=== PATIENT | female | born 1995 | race Caucasian/White ===

== ENCOUNTER 2017-03-08 19:07 | Emergency (ER) | payer MEDICAID ==
[~2017-03-08] VITALS: Ht 165.1 cm; Wt 46.7 kg
[~2017-03-08 19:07] MED LIST: AMOXICILLIN 50500 MG PO; AMOXIL500 M1 PO; AZITHROMYCIN250 MG PO; IBU-6600 MG PO; LEADER LORATADI10 MG PO; MEDROL 4MG. DOSE4 MG PO; MOTRIN400 MG PO; MOTRIN600 MG PO; MULTI VITAMINS1 TA1 PO; NEOSPORIN OPTH.4 GM OP; ORTHO-CYCLEN 351 TA1 PO; PREDNISONE 10MG10 MG PO; PROAIR HFA0.09 MG/AC IH; ULTRACET 325 MG1 TAB PO; ZITHROMAX Z PA250 MG PO; ZITHROMAX Z-PA250 M1 PO
[2017-03-08] MEDS ORDERED: NUVARING1 ICR VG (19:23)
[2017-03-08 19:30] LABS: URINE BILIRUBIN - DIPSTICK NEGATIVE (NEG); URINE BLOOD NEGATIVE (NEG)
[2017-03-08] MEDS ORDERED: PYRIDIUM200 M2 PO (19:44)
[2017-03-08] MEDS ORDERED: MACROBID100 M3 PO (19:44)
--- NOTE | 2017-03-08 19:46 | [facility]gent Treatment Center Report ---
History of Present Issue Date/Time Seen by Provider 03/08/171934 Visit Reason Pt arrived:Walked Presenting Problem:PT STATES EREN KIDNEY PAIN FOR PAST WEEK AND A HALF THAT HAS GOTTEN WORSE FOR THE PAST THREE DAYS Location if Accident: Onset of symptoms date/time:/ or onset unknown for:MEDICAL HX UNKNOWN Have you (or family members/close friends) recently traveled outside the [place]? N If Yes, where/when: Have you had exposure to infectious disease within the past month? TB? Other? Specify: here w/ mom c/o pain across low back x 3 days w/ dysuria and abnormal foul smelling urine x 5 days. Noticed blood in urine today. Nausea last 2-3 days. No vomiting, abdominal pain, fever, chills, vaginal discharge, change in urine color. hasn't taken or tried anything for symptoms. Source patient Exam Limitations no limitations ALLERGIES Coded Allergies: erythromycin base (03/08/17) sulfisoxazole (03/08/17) Home Medications Reported Medications Albuterol Sulfate (Proair Hfa) 2 PUFFS IH PRN MULTIVITAMIN (One Daily Multivitamin) 1 TAB PO DAILY ETONOGESTREL/ETHINYL ESTRADIOL (Nuvaring Vaginal Ring) 1 VG . History Medical History General CAD? No Angina: No DE: No Hypertension? Yes Hyperlipidemia? No CHF? No DVT? No PE? No COPD? No Asthma? Yes Anemia? No GERD? No Gastric ulcers? No GI Bleed? No Hernia? No Thyroid Problems? No Hypothyroidism? No CVA? No Seizures? No Diabetes? No Renal Insuffiency? No UTI? No Stones? No BPH? No GB Disease: No Nephritic Syndrome? No Asplenia? No Hepatitis? No Sickle Cell Disease? No Arthritis? No Migraines? No Cataracts? No Glaucoma? No MRSA? No HIV? No TB? No Anxiety? Yes Depression? No Cancer? No Immunization HX DT/Tetanus 1-4 YRS Surgical Hx Previous Surgery?N B[employer]ING [employer]ACH[employer] HORIZONTAL Hx LMP 3 Weeks Ago Social History Smoking Hx Smoker: Current Every Day Smoker Tobacco: Yes Type Cigarettes Alcohol Alcohol: Yes Review of Systems All Other Systems Reviewed and Negative Constitutional see HPI Gastrointestinal see HPI Genitourinary see HPI, frequency, hesitancy. Musculoskeletal denies other (aches) Psychiatric/Neurological denies headache Physical Exam Vital Signs Vital Signs Date Time Temp Pulse Resp B/P Pulse O2 O2 Flow FiO2 Ox Delivery Rate 03/08 1920 99.4 91 20 116/79 103 General Appearance no apparent distress Respiratory Status No: respiratory distress. Cardiovascular no peripheral edema Gastrointestinal normal bowel sounds, soft, no organomegaly, no guarding, no rebound, generalized mild abdominal and suprapubic tenderness without bladder distention Back no vertebral tenderness, gait normal, CVA tenderness (R) (mild), CVA tenderness (L) (mild) Neurologic alert Skin normal color, warm/dry Lymphatic no adenopathy Medical Decision Making LABS/Meds/Orders Pt receiving controlled substance in ED? No Results/Orders Laboratory Tests 03/08/171918: Urine Color DARK YELLOW, Urine Appearance Clear, Urine pH 6.0, Ur Specific Bowlus 1.030, Urine Protein .0, Urine Ketones NEGATIVE, Urine Blood NEGATIVE, Urine Nitrate POSITIVE H, Urine Bilirubin NEGATIVE, Urine Urobilinogen 1.0, Ur Leukocyte Esterase NEGATIVE, Urine Glucose NEGATIVE Orders Procedure Date/time Status CULTURE, URINE 03/08 1936 Active [facility] URINE DIPSTICK 03/08 1919 Complete Departure Departure Time of Disposition 1940 Disposition DC Home or Self Care(routine) Clinical Impression Primary Impression: UTI (urinary tract infection) Qualifiers: Urinary tract infection type: site unspecified Hematuria presence: with hematuria Qualified Code: N39.0 - Urinary tract infection, site not specified Condition STABLE Referrals NO REFERRAL Primary care is in [place]: * Be SURE to follow up anytime for new or worsening symptoms, if no improvement in 48 hours AND in 10-14 days to repeat UA and ensure infection resolved and blood no longer present. Patient Instructions DI for Urinary Tract Infection (UTI) Additional Instructions * increase fluids, Water and NOT soda or tea * Start antibiotic immediately and be sure to take as ordered for the FULL length of time although you should start to see improvement over the next 48 hours. * pyridium as needed. Remember this will turn your urine ORANGE, this is normal but will stain whatever it gets on * You should not need the pyridium longer than 48 hours. If so, follow up with primary care to review urine culture and ensure antibiotic is adequate * Be SURE to follow up anytime for new or worsening symptoms, if no improvement in 48 hours AND in 10-14 days to repeat UA and ensure infection resolved and blood no longer present. * Be sure to let your PCP (or whoever you follow up with) know we sent urine culture so they can request records and ensure you are on the appropriate antibiotic if you are not getting better or getting worse!!! Discharge Counseling Counseled pt/family regarding diagnosis, test results, medications/RX, home care, follow up needs Prescriptions Current Visit Scripts NITROFURANTOIN MONOHYD/M-CRYST (Macrobid 100 MG Capsule) 100 MG PO BID #14 CAP Phenazopyridine HCl (Pyridium) 200 MG PO TIDP PRN pain w/ urination #6 TAB at 1950
[2017-03-08 19:48] VITALS: BP 116/79
--- OUTSIDE RECORDS SUMMARY | 2017-03-14 08:26 | External Medical Summary Rpt ---
Author Author , Organization [employer] Address Unknown Phone Unavailable Care Team Providers Care Survey Research [facility] Director Name Role Phone GAYATHRI COWAN Unavailable Unavailable MARSHALL GAYATHRI OLIVARES, ARNOLD Unavailable Unavailable MARSHALL SUNDEEP TRINH W, Unavailable Unavailable SUNDEEP TRINH W AWOSIKA ABEL, AWOSIKA Unavailable Unavailable ABEL AWOSIKA ABEL, AWOSIKA Unavailable Unavailable ABEL [facility] Unavailable Unavailable [facility] SHAHAB DOMINGUEZ, Unavailable Unavailable SHAHAB DOMINGUEZ [facility] Un[facility]available [facility], Unavailable Unavailable [facility] Unavailable [facility], [facility] [place] [facility] [facility] [facility] [place] [facility] Unavailable [facility]available [facility], Un[facility] Unavailable Unavailable DEPT., [facility]. [facility] Unavailable Unavailable DEPT., [facility] DE[facility]. NITIN LEDBETTER, Unavailable Unavailable NITIN LEDBETTER GRAY ROB Unavailable Unavailable [facility] Un[facility], [facility] KEVIN BURGESS HARVEY, Unavailable Unavailable KEVIN [facility], Unavailable Unavailable [facility] Un[facility] Unavailable [facility], [facility] KROEWN MILNER Unavailable Unavailable ALHAJI EWING, Unavailable Unavailable ALHAJI EWING [facility] Unavailable Unavailable SERVICES, [facility] Unavailable Unavailable DEPARTMENT, [facility] JASMIN SANON, Unavailable Unavailable JASMIN SANON JOE A, Unavailable Unavailable NAIMA DAVIS PETREYES Unavailable Unavailable JAM RADHA JEA, RADHA Unavailable Unavailable JEA [id number], Unavailable Unavailable [id number] Unavailable Unavailable DEPARTME, [facility] Unavailable Unavailable DE[facility]ME, [facility] Unavailable Unavailable DEPARTMENT, [facility] MAY SAEED Unavailable Unavailable SAULO KHAN, Unavailable Unavailable SAULO OLVERA SOKAN BAB, SOKAN BAB Unavailable Unavailable SOKAN, CHEKO O, Unavailable Unavailable SOKAN, CHEKO O [facility] Unavailable Unavailable [facility]Y [facility], [facility] SHANELLE RENTERIA III, Unavailable Unavailable SHANELLE RENTERIA III Purpose Continuity of Care Document - 10-31-2007 through 2016 Problems Code Diagnosis DOS Provider Status [id number] ENCOUNTER 08-17-2016 [employer] ENGINEER EXAM [facility] GENERAL RTN HEALTH W/O DEPT. ABNORMAL FIND [id number] ENCOUNTR 08-17-2016 [facility] SURVEILLANC [facility] DEPT. 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 AWOSIKA ABEL NERVE FIBER BUNDLE DEFECTS 3671 MYOPIA 11-02-2011 AWOSIKA ABEL 55330 OTHER 11-02-2011 AWOSIKA ABEL CHRONIC ALLERGIC CONJUNCTIVI TIS 6264 IRREGULAR 08-04-2011 [facility] MENSTRUAL [facility]ALTH CYCLE DEPARTME 77237 HORDEOLUM 06-29-2011 [facility] 39210 PAINFUL 06-29-2011 [facility] 39048 OTHER CHEST 06-29-2011 [facility] V7231 ROUTINE 06-27-2011 [facility] AL DEPARTME EXAMINATION 4619 ACUTE 04-11-2011 ARNOLD MARSHALL SINUSITIS, UNSPECIFIED 8470 NECK SPRAIN 04-02-2011 [facility] 86307 CONTUSION 12-10-2010 [facility] 23696 PAIN IN 12-09-2010 GAYATHRI MARSHALL JOINT, LOWER LEG 8449 SPRAIN&STRA 12-02-2010 [facility] IN OF [facility] UNSPECIFIED INC SITE OF KNEE&LEG 82906 REGULAR 08-20-2010 [facility] 17315 ABDOMINAL 05-12-2010 [place] [facility], MEDICAL UNSPECIFIED IMAGING ASS SITE 02174 ABDOMINAL 05-12-2010 ARIN PAIN, EMERGENCY GENERALIZED SERVICES ASSOC[facility]ATES 51230 UNSPECIFIED 04-27-2010 ARNOLD, INFECTIVE SUNDEEP W OTITIS EXTERNA 4660 ACUTE 02-20-2010 ARNOLD, BRONCHITIS SUNDEEP W 66216 ASTHMA 10-25-2009 [facility] UNSPECIFIED [facility]ERGENCY WITH SERVICES EXACERBATIO ASSOCIATES N 99340 ASTHMA, 09-17-2009 [facility] UNSPECIFIED [facility]ERGENCY , SERVICES UNSPECIFIED ASSOCIATES STATUS 7862 COUGH 09-17-2009 [facility] 5110 PLEURISY 07-10-2009 [facility] WITHOUT EMERGENCY MENTION SERVICES EFFUS/CURRE ASSOCIATES NT TB 514 PULMONARY 07-10-2009 [facility] HYPOSTASIS [facility]ATES V720 EXAMINATION 06-04-2009 MARQUIS Valdez OF EYES RUFINA OD AND VISION V2503 ENCOUNTER 05-22-2009 [facility] EMERGENCY HEALTH CONTRACEPT CENTRAL CNSL&PRESCR BANK ACCT IPTION 9595 INJURY 05-01-2009 RYAN, OTHER AND NAIMA Alves UNSPECIFIED FINGER 52232 PAIN IN 04-29-2009 [facility] JOINT, EMERGENCY FOREARM SERVICES ASSOCIATES 28345 OTHER HAND 04-29-2009 [place] SPRAIN AND [facility] STR[facility] E8498 OTHER 04-29-[address] [place] [address] OF IMAGING OCCURRENCE ASSOCIATES E9170 STRIKE 04-29-2009 [place] AGNST/STRUC MEDICAL K ACC IMAGING SPORTS W/O ASSOCIATES SUBSQT FALL 84718 LUMP OR 01-13-2009 [place] M[place] IN MEDICAL BREAST [facility] 4779 ALLERGIC 12-27-2008 RYAN RHINITIS NAIMA A CAUSE UNSPECIFIED 4640 ACUTE 12-10-2008 RYAN LARYNGITIS NAIMA A 47634 COUGH 07-16-2008 [facility] ASTHMA INTERNAL MED 60517 OTHER 07-07-2008 [facility] DYSPNEA AND [facility] [place] [address] UNSPECIFIED 07-02-2008 [facility] INTERNAL MED ABNORMALITY 17356 ABDOMINAL 06-19-2008 [place] [facility], MEDICAL EPIGASTRIC IMAGING ASSOC[facility]ATES 08058 CHEST PAIN 06-14-2008 [facility] UNSPECIFIED [facility] PROF SERV 5118 PLEURISY 10-31-2007 [facility] W/OTH SPEC [facility] FORMS EFFUS INC NO TUBERCULOUS 7931 NONSPEC 10-31-2007 [place] FIND RAD MEDICAL OTH EXAM [facility] B[facility] STRUCT [facility] LUNG FIELD Allergies, Adverse Reactions, Alerts Clinical Alert Notifications Alert Asthma: absence of controller with h/o SA beta agonist Asthma: no influenza vaccine in the last 365 days Medications Na ND Rx Da Fi Fi Am Da Di Ph RX Ph St me C No te ll ll ou ys ag ar # ys at rm s nt no ma ic us Or Da si cy ia de te s n re d FL 65 04 05 30 30 00 KR Ac UO 86 -3 -1 .0 00 OG ti XE 20 0- 9- 00 06 ER ve TI 19 20 20 52 NE 29 17 17 50 PH 9 06 AR HC M L L- 10 76 7 MG CA PS UL E VE 00 04 05 18 30 00 KR Ac NT 17 -3 -1 .0 00 OG ti OL 30 0- 9- 00 06 ER ve IN 68 20 20 52 22 17 17 50 PH HF 0 05 AR A M 90 L- 76 MC 7 G IN MILLER LE R NU 00 04 05 1. 28 00 KR Ac VA 05 -2 -1 00 00 OG ti RI 20 0- 2- 0 06 ER ve NG 27 20 20 51 30 17 17 96 PH VA 3 84 AR GI M NA L- L 76 RI 7 NG VE 00 03 04 18 30 00 KR Ac NT 17 -3 -2 .0 00 OG ti OL 30 1- 1- 00 06 ER ve IN 68 20 20 52 22 17 17 50 PH HF 0 05 AR A M 90 L- 76 MC 7 G IN [facility] 65 03 04 30 30 00 KR Ac UO 86 -3 -2 .0 00 OG ti XE 20 1- 1- 00 06 ER ve TI 19 20 20 52 NE 29 17 17 50 PH 9 06 AR HC M L L- 10 76 7 MG CA PS UL E NU 00 03 04 1. 28 00 KR Ac VA 05 -2 -1 00 00 OG ti RI 20 2- 4- 0 06 ER ve NG 27 20 20 51 30 17 17 96 PH VA 3 84 AR GI M NA L- L 76 RI 7 NG VE 00 03 03 18 30 00 KR Ac NT 17 -0 -2 .0 00 OG ti OL 30 2- 4- 00 06 ER ve IN 68 20 20 52 22 17 17 50 PH HF 0 05 AR A M 90 L- 76 MC 7 G IN [facility] 65 03 03 30 30 00 KR Ac UO 86 -0 -2 .0 00 OG ti XE 20 1- 4- 00 06 ER ve TI 19 20 20 52 NE 29 17 17 50 PH 9 06 AR HC M L L- 10 76 7 MG CA PS UL E NU 00 02 03 1. 28 00 KR Ac VA 05 -2 -1 00 00 OG ti RI 20 4- 7- 0 06 ER ve NG 27 20 20 51 30 17 17 96 PH VA 3 84 AR GI M NA L- L 76 RI 7 NG FL 65 02 02 30 30 00 KR Ac UO 86 -0 -2 .0 00 OG ti XE 20 3- 4- 00 06 ER ve TI 19 20 20 52 NE 29 17 17 50 PH 9 06 AR HC M L L- 10 76 7 MG CA PS UL E VE 00 02 02 18 30 00 KR Ac NT 17 -0 -2 .0 00 OG ti OL 30 3- 4- 00 06 ER ve IN 68 20 20 52 22 17 17 50 PH HF 0 05 AR A M 90 L- 76 MC 7 G IN MILLER LE R NU 00 01 02 1. 28 00 KR Ac VA 05 -2 -1 00 00 OG ti RI 20 9- 7- 0 06 ER ve NG 27 20 20 51 30 17 17 96 PH VA 3 84 AR GI M NA L- L 76 RI 7 NG NU 00 01 02 1. 28 00 WA Ac VA 05 -0 -0 00 00 L- ti RI 20 3- 3- 0 07 MA ve NG 27 20 20 30 RT 30 17 17 89 VA 3 98 PH GI AR NA MA L CY RI NG #2 62 8 LO 45 07 10 5 30 30 EA 23 AR Ac RA 80 -1 -[address] 29 NO ti TA 20 3- 5- 00 SI 23 LD ve DI 65 20 20 DE NE 08 11 11 RI 7 PH CH 10 AR AR MA D MG CY W TA OF BL ET CY NT HI AN A AM 00 09 09 0 21 7 EA 24 KR Ac OX 78 -1 -[address] 08 OO ti IC 12 4- 4- 00 SI 80 T ve IL 61 20 20 DE LO LI 30 11 11 UI N 5 PH S 50 AR 0 MA MG CY CA OF PS UL CY E NT HI AN A BA 24 09 09 0 3. 4 EA 24 KR Ac CI 20 -1 -[address] 08 OO ti TR 80 4- 4- 0 SI 81 T ve AC 55 20 20 DE LO IN 55 11 11 UI -P 5 PH S OL AR YM MA YX CY IN OF EY E CY OI NT NT HI AN A 59 10 09 2 8. 20 EA 19 AR Ac 31 -0 -[address] 42 NO ti 00 5- 8- 0 SI 17 LD ve 57 20 20 DE 92 10 11 RI 0 PH CH AR AR MA D CY W OF CY NT HI AN A LO 45 07 09 5 30 30 EA 23 AR Ac RA 80 -1 -[address] 29 NO ti TA 20 3- 8- 00 SI 23 LD ve DI 65 20 20 DE NE 08 11 11 RI 7 PH CH 10 AR AR MA D MG CY W TA OF BL ET CY NT HI AN A LO 45 07 08 5 30 30 EA 23 AR Ac RA 80 -1 -[address] 29 NO ti TA 20 3- 1- 00 SI 23 LD ve DI 65 20 20 DE NE 08 11 11 RI 7 PH CH 10 AR AR MA D MG CY W TA OF BL ET CY NT HI AN A LO 45 07 07 5 30 30 EA 23 AR Ac RA 80 -1 -[address] 29 NO ti TA 20 3- 3- 00 SI 23 LD ve DI 65 20 20 DE NE 08 11 11 RI 7 PH CH 10 AR AR MA D MG CY W TA OF BL ET CY NT HI AN A 00 06 06 0 20 4 EA 22 GR Ac 17 -1 -[address] 99 AY ti 26 8- 8- 00 SI 73 ve 35 20 20 DE RO 97 11 11 BE 0 PH RT AR B MA CY OF CY NT HI AN A LO 45 06 06 0 30 30 EA 22 AR Ac RA 80 -1 -[address] 96 NO ti TA 20 6- 6- 00 SI 10 LD ve DI 65 20 20 DE NE 08 11 11 RI 7 PH CH 10 AR AR MA D MG CY W TA OF BL ET CY NT HI AN A LO 45 12 05 5 30 30 EA 20 AR Ac RA 80 -2 -[address] 55 NO ti TA 20 7- 7- 00 SI 02 LD ve DI 65 20 20 DE NE 08 10 11 RI 7 PH CH 10 AR AR MA D MG CY W TA OF BL ET CY NT HI AN A LO 45 12 04 5 30 30 EA 20 AR Ac RA 80 -2 -[address] 55 NO ti TA 20 7- 9- 00 SI 02 LD ve DI 65 20 20 DE NE 08 10 11 RI 7 PH CH 10 AR AR MA D MG CY W TA OF BL ET CY NT HI AN A LO 45 12 03 5 30 30 EA 20 AR Ac RA 80 -2 -[address] 55 NO ti TA 20 7- 2- 00 SI 02 LD ve DI 65 20 20 DE NE 08 10 11 RI 7 PH CH 10 AR AR MA D MG CY W TA OF BL ET CY NT HI AN A IB 53 02 03 1 30 10 EA 21 SO Ac UP 74 -2 -[address] 40 KA ti RO 60 5- 0- 00 SI 67 N ve FE 46 20 20 DE BA N 50 11 11 BA 60 5 PH TU 0 AR ND MG MA E CY O TA BL OF ET CY NT HI AN A IB 53 02 02 1 30 10 EA 21 SO Ac UP 74 -2 -[address] 40 KA ti RO 60 5- 5- 00 SI 67 N ve FE 46 20 20 DE BA N 50 11 11 BA 60 5 PH TU 0 AR ND MG MA E CY O TA BL OF ET CY NT HI AN A 59 10 02 2 8. 25 EA 19 AR Ac 31 -0 -[address] 42 NO ti 00 5- 3- 0 SI 17 LD ve 57 20 20 DE 92 10 11 RI 0 PH CH AR AR MA D CY W OF CY NT HI AN A LO 45 12 02 5 30 30 EA 20 AR Ac RA 80 -2 -[address] 55 NO ti TA 20 7- 3- 00 SI 02 LD ve DI 65 20 20 DE NE 08 10 11 RI 7 PH CH 10 AR AR MA D MG CY W TA OF BL ET CY NT HI AN A ME 00 12 02 1 21 6 EA 20 AR Ac TH 78 -2 -[address] 55 NO ti YL 15 7- 3- 00 SI 03 LD ve VA 02 20 20 DE ED 20 10 11 RI NI 7 PH CH SO AR AR LO MA D NE CY W 4 OF MG CY DO NT SE HI PK AN A AZ 00 12 02 1 6. 5 EA 20 AR Ac IT 09 -2 -[address] 55 NO ti HR 37 7- 3- 0 SI 04 LD ve OM 14 20 20 DE YC 61 10 11 RI IN 8 PH CH AR AR 25 MA D 0 CY W MG OF TA BL CY ET NT HI AN A IB 53 02 02 0 9. 3 EA 21 SO Ac UP 74 -1 -[address] 29 KA ti RO 60 7- 7- 0 SI 78 N ve FE 46 20 20 DE BA N 50 11 11 BA 60 5 PH TU 0 AR ND MG MA E CY O TA BL OF ET CY NT HI AN A LO 45 12 01 5 30 30 EA 20 AR Ac RA 80 -2 -[address] 55 NO ti TA 20 7- 5- 00 SI 02 LD ve DI 65 20 20 DE NE 08 10 11 RI 7 PH CH 10 AR AR MA D MG CY W TA OF BL ET CY NT HI AN A LO 45 12 12 5 30 30 EA 20 AR Ac RA 80 -2 -[address] 55 NO ti TA 20 7- 7- 00 SI 02 LD ve DI 65 20 20 DE NE 08 10 10 RI 7 PH CH 10 AR AR MA D MG CY W TA OF BL ET CY NT HI AN A ME 00 12 12 1 21 6 EA 20 AR Ac TH 78 -2 -[address] 55 NO ti YL 15 7- 7- 00 SI 03 LD ve VA 02 20 20 DE ED 20 10 10 RI NI 7 PH CH SO AR AR LO MA D NE CY W 4 OF MG CY DO NT SE HI PK AN A AZ 00 12 12 1 6. 5 EA 20 AR Ac IT 09 -2 -[address] 55 NO ti HR 37 7- 7- 0 SI 04 LD ve OM 14 20 20 DE YC 61 10 10 RI IN 8 PH CH AR AR 25 MA D 0 CY W MG OF TA BL CY ET NT HI AN A LO 45 01 11 11 30 30 EA 16 AR Ac RA 80 -2 -[address] 08 NO ti TA 20 3- 0- 00 SI 20 LD ve DI 65 20 20 DE NE 08 10 10 RI 7 PH CH 10 AR AR MA D MG CY W TA OF BL ET CY NT HI AN A LO 45 01 10 11 30 30 EA 16 AR Ac RA 80 -2 -[address] 08 NO ti TA 20 3- 9- 00 SI 20 LD ve DI 65 20 20 DE NE 08 10 10 RI 7 PH CH 10 AR AR MA D MG CY W TA OF BL ET CY NT HI AN A AZ 64 01 10 1 6. 5 EA 16 AR Ac IT 67 -2 -[address] 08 NO ti HR 90 3- 5- 0 SI 18 LD ve OM 96 20 20 DE YC 10 10 10 RI IN 5 PH CH AR AR 25 MA D 0 CY W MG OF TA BL CY ET NT HI AN A ME 00 01 10 1 21 6 EA 16 AR Ac TH 78 -2 -[address] 08 NO ti YL 15 3- 5- 00 SI 19 LD ve VA 02 20 20 DE ED 20 10 10 RI NI 7 PH CH SO AR AR LO MA D NE CY W 4 OF MG CY DO NT SE HI PK AN A 59 10 10 2 8. 25 EA 19 AR Ac 31 -0 -[address] 42 NO ti 00 5- 5- 0 SI 17 LD ve 57 20 20 DE 92 10 10 RI 0 PH CH AR AR MA D CY W OF CY NT HI AN A LO 45 01 09 11 30 30 EA 16 AR Ac RA 80 -2 -[address] 08 NO ti TA 20 3- 7- 00 SI 20 LD ve DI 65 20 20 DE NE 08 10 10 RI 7 PH CH 10 AR AR MA D MG CY W TA OF BL ET CY NT HI AN A LO 45 01 08 11 30 30 EA 16 AR Ac RA 80 -2 -[address] 08 NO ti TA 20 3- 7- 00 SI 20 LD ve DI 65 20 20 DE NE 08 10 10 RI 7 PH CH 10 AR AR MA D MG CY W TA OF BL ET CY NT HI AN A CI 57 05 08 2 15 30 EA 18 No Ac TA 66 -1 -[address] 12 t ti LO 40 8- 7- 00 SI 82 Av ve VA 50 20 20 DE ai AM 91 10 10 la 8 PH bl HB AR e R MA 40 CY MG OF TA CY BL NT ET HI AN A AM 00 07 07 0 21 7 EA 18 GA Ac OX 78 -2 -[address] 52 IN ti IC 12 9- 9 SI 06 EY ve IL 61 20 20 DE LI 30 10 10 PR N 5 PH CH 50 AR AE 0 MA L MG CY S CA OF PS UL CY E NT HI AN A LO 45 01 07 11 30 30 EA 16 AR Ac RA 80 -2 -[address] 08 NO ti TA 20 3- 4- 00 SI 20 LD ve DI 65 20 20 DE NE 08 10 10 RI 7 PH CH 10 AR AR MA D MG CY W TA OF BL ET CY NT HI AN A CI 65 05 07 2 15 30 EA 18 No Ac TA 86 -1 -[address] 12 t ti LO 20 8- 4- 00 SI 82 Av ve VA 00 20 20 DE ai AM 70 10 10 la 5 PH bl HB AR e R MA 40 CY MG OF TA CY BL NT ET HI AN A 68 07 07 0 20 10 EA 18 AR Ac 82 -1 -[address] 33 NO ti 00 3- 3- 00 SI 24 LD ve 06 20 20 DE 30 10 10 RI 9 PH CH AR AR MA D CY W OF CY NT HI AN A CI 00 07 07 0 7. 10 EA 18 AR Ac VA 06 -1 -[address] 33 NO ti OD 58 3- 3- 0 SI 25 LD ve EX 53 20 20 DE 30 10 10 RI OT 2 PH CH IC AR AR MA D CABALLERO CY W SP EN OF SI ON CY NT HI AN A AZ 00 07 07 1 6. 5 EA 18 AR Ac IT 09 -0 -[address] 18 NO ti HR 37 1- 0- 0 SI 65 LD ve OM 14 20 20 DE YC 61 10 10 RI IN 8 PH CH AR AR 25 MA D 0 CY W MG OF TA BL CY ET NT HI AN A AN 24 07 07 1 10 5 EA 18 AR Ac TI 20 -0 -[address] 18 NO ti PY 80 1- 0- 00 SI 66 LD ve RI 56 20 20 DE NE 16 10 10 RI -B 2 PH CH EN AR AR ZO MA D CA CY W IN E OF EA R CY DR NT OP HI AN A AZ 00 07 07 1 6. 5 EA 18 AR Ac IT 09 -0 -[address] 18 NO ti HR 37 1- 1- 0 SI 65 LD ve OM 14 20 20 DE YC 61 10 10 RI IN 8 PH CH AR AR 25 MA D 0 CY W MG OF TA BL CY ET NT HI AN A AN 24 07 07 1 10 5 EA 18 AR Ac TI 20 -0 -[address] 18 NO ti PY 80 1- 1- 00 SI 66 LD ve RI 56 20 20 DE NE 16 10 10 RI -B 2 PH CH EN AR AR ZO MA D CA CY W IN E OF EA R CY DR NT OP HI AN A LO 45 01 06 11 30 30 EA 16 AR Ac RA 80 -2 -[address] 08 NO ti TA 20 3- 6- 00 SI 20 LD ve DI 65 20 20 DE NE 08 10 10 RI 7 PH CH 10 AR AR MA D MG CY W TA OF BL ET CY NT HI AN A CI 65 05 06 2 15 30 EA 18 No Ac TA 86 -1 -[address] 12 t ti LO 20 8- 6- 00 SI 82 Av ve VA 00 20 20 DE ai AM 70 10 10 la 5 PH bl HB AR e R MA 40 CY MG OF TA CY BL NT ET HI AN A LO 45 01 05 11 30 30 EA 16 AR Ac RA 80 -2 -[address] 08 NO ti TA 20 3- 2- 00 SI 20 LD ve DI 65 20 20 DE NE 08 10 10 RI 7 PH CH 10 AR AR MA D MG CY W TA OF BL ET CY NT HI AN A CI 55 03 05 1 15 30 EA 17 No Ac TA 11 -0 -[address] 16 t ti LO 10 2- 2- 00 SI 97 Av ve VA 34 20 20 DE ai AM 40 10 10 la 5 PH bl HB AR e R MA 40 CY MG OF TA CY BL NT ET HI AN A ME 00 05 05 0 21 6 EA 17 GA Ac TH 78 -0 -[address] 43 IN ti YL 15 2- 2- 00 SI 20 EY ve VA 02 20 20 DE ED 20 10 10 PR NI 7 PH CH SO AR AE LO MA L NE CY S 4 OF MG CY DO NT SE HI PK AN A AZ 00 05 05 0 6. 5 EA 17 GA Ac IT 09 -0 -[address] 43 IN ti HR 37 2- 2- 0 SI 21 EY ve OM 14 20 20 DE YC 61 10 10 PR IN 8 PH CH AR AE 25 MA L 0 CY S MG OF TA BL CY ET NT HI AN A LO 45 01 04 11 30 30 EA 16 AR Ac RA 80 -2 -[address] 08 NO ti TA 20 3- 6- 00 SI 20 LD ve DI 65 20 20 DE NE 08 10 10 RI 7 PH CH 10 AR AR MA D MG CY W TA OF BL ET CY NT HI AN A CI 55 03 04 1 15 30 EA 17 No Ac TA 11 -0 -[address] 16 t ti LO 10 2- 3- 00 SI 97 Av ve VA 34 20 20 DE ai AM 40 10 10 la 5 PH bl HB AR e R MA 40 CY MG OF TA CY BL NT ET HI AN A LO 45 01 03 11 30 30 EA 16 AR Ac RA 80 -2 -[address] 08 NO ti TA 20 3- 7- 00 SI 20 LD ve DI 65 20 20 DE NE 08 10 10 RI 7 PH CH 10 AR AR MA D MG CY W TA OF BL ET CY NT HI AN A DO 53 03 03 1 20 10 EA 16 AR Ac XY 48 -1 -[address] 80 NO ti CY 90 6- 7- 00 SI 17 LD ve CL 11 20 20 DE IN 90 10 10 RI E 5 PH CH HY AR AR CL MA D AT CY W E 10 OF 0 MG CY NT CA HI P AN A DO 53 03 03 1 20 10 EA 16 AR Ac XY 48 -1 -[address] 80 NO ti CY 90 6- 6- 00 SI 17 LD ve CL 11 20 20 DE IN 90 10 10 RI E 5 PH CH HY AR AR CL MA D AT CY W E 10 OF 0 MG CY NT CA HI P AN A CI 55 03 03 2 15 15 DE 63 No Ac TA 11 -0 -0 .0 AN 92 t ti LO 10 2- 2- 00 S 00 Av ve VA 34 20 20 PH 9 ai AM 40 10 10 AR la 5 MA bl HB CY e R 40 IN C MG TA BL ET LO 45 01 02 01 30 30 EA 16 AR Ac RA 80 -2 -[address] 08 NO ti TA 20 3- 6- 00 SI 20 LD ve DI 65 20 20 DE NE 08 10 10 RI 7 PH CH 10 AR AR MA D MG CY W TA OF BL CY ET NT HI AN A LO 45 01 02 00 30 30 EA 16 AR Ac RA 80 -2 -[address] 08 NO ti TA 20 3- 1- 00 SI 20 LD ve DI 65 20 20 DE NE 08 10 10 RI 7 PH CH 10 AR AR MA D MG CY W TA OF BL CY ET NT HI AN A ME 00 01 02 00 21 6 EA 16 AR Ac TH 78 -2 -[address] 08 NO ti YL 15 3- 1- 00 SI 19 LD ve VA 02 20 20 DE ED 20 10 10 RI NI 7 PH CH SO AR AR LO MA D NE CY W 4 OF MG CY NT DO HI SE AN PK A CI 55 02 02 00 15 15 DE 63 No Ac TA 11 -0 -1 .0 AN 90 t ti LO 10 2- 1- 00 S 86 Av ve VA 34 20 20 PH 0 ai AM 40 10 10 AR la 5 MA bl HB CY e R 40 MG TA BL ET AZ 00 01 02 00 6. 5 EA 16 AR Ac IT 09 2 -[address] 08 NO ti HR 37 3- 1- 0 SI 18 LD ve OM 14 20 20 DE YC 61 10 10 RI IN 8 PH CH AR AR 25 MA D 0 CY W MG OF TA CY BL NT ET HI AN A AZ 00 01 01 00 4. 4 EA 15 WE Ac IT 09 -1 -[address] 92 HR ti HR 37 1- 8- 0 SI 29 MA ve OM 14 20 20 DE N YC 61 10 10 II IN 8 PH I AR WI 25 MA LL 0 CY IA MG M OF E TA CY BL NT ET HI AN A VA 00 01 01 00 10 5 EA 15 WE Ac ED 59 -1 -[address] 92 HR ti NI 15 1- 8- 00 SI 30 MA ve SO 44 20 20 DE N NE 20 10 10 II 1 PH I 10 AR WI MA LL MG CY IA M TA OF E BL CY ET NT HI AN A CI 55 12 01 01 15 15 DE 63 No Ac TA 11 -0 -1 .0 AN 88 t ti LO 10 8- 4- 00 S 35 Av ve VA 34 20 20 PH 4 ai AM 40 09 10 AR la 1 MA bl HB CY e R 40 MG TA BL ET LO 45 10 12 02 30 30 EA 14 NI Ac RA 80 -0 -[address] 52 CH ti TA 20 2- 1- 00 SI 77 OL ve DI 65 20 20 DE S NE 08 09 09 JAMIN 7 PH E 10 AR A MA MG CY TA OF BL CY ET NT HI AN A AZ 59 12 12 00 6. 5 RI 81 GA Ac IT 76 -0 -1 00 TE 16 IN ti HR 23 3- 7- 0 43 EY ve OM 06 20 20 AI YC 00 09 09 D PR IN 1 PH CH AR AE 25 M L 0 #3 S MG 93 8 TA BL ET ME 00 12 12 00 21 6 RI 81 GA Ac TH 60 -0 -1 .0 TE 16 IN ti YL 34 3- 7- 00 42 EY ve VA 59 20 20 AI ED 31 09 09 D PR NI 5 PH CH SO AR AE LO M L NE #3 S 4 93 8 MG DO SE PK CI 55 12 12 00 15 15 DE 63 No Ac TA 11 -0 -1 .0 AN 88 t ti LO 10 8- 7- 00 S 35 Av ve VA 34 20 20 PH 4 ai AM 40 09 09 AR la 1 MA bl HB CY e R 40 MG TA BL ET LO 45 10 12 01 30 30 EA 14 NI Ac RA 80 -0 -[address] 52 CH ti TA 20 2- 3- 00 SI 77 OL ve DI 65 20 20 DE S NE 08 09 09 JAMIN 7 PH E 10 AR A MA MG CY TA OF BL CY ET NT HI AN A CI 55 11 11 00 15 30 DE 63 No Ac TA 11 -1 -1 .0 AN 87 t ti LO 10 0- 9- 00 S 05 Av ve VA 34 20 20 PH 3 ai AM 40 09 09 AR la 1 MA bl HB CY e R 40 MG TA BL ET LO 60 10 10 00 30 30 EA 14 NI Ac RA 50 -0 -[address] 52 CH ti TA 50 2- 8- 00 SI 77 OL ve DI 14 20 20 DE S NE 70 09 09 JAMIN 8 PH E 10 AR A MA MG CY TA OF BL CY ET NT HI AN A AZ 00 09 10 00 6. 6 EA 14 GA Ac IT 09 -2 -[address] 43 IN ti HR 37 6- 8- 0 SI 35 EY ve OM 14 20 20 DE YC 61 09 09 PR IN 8 PH CH AR AE 25 MA L 0 CY S MG OF TA CY BL NT ET HI AN A ME 00 09 10 00 21 6 EA 14 GA Ac TH 78 -2 -[address] 43 IN ti YL 15 6- 8- 00 SI 34 EY ve VA 02 20 20 DE ED 20 09 09 PR NI 7 PH CH SO AR AE LO MA L NE CY S 4 OF MG CY NT DO HI SE AN PK A LO 60 07 09 02 30 30 EA 13 NI Ac RA 50 -0 -[address] 38 CH ti TA 50 6- 4- 00 SI 63 OL ve DI 14 20 20 DE S NE 70 09 09 JAMIN 8 PH E 10 AR A MA MG CY TA OF BL CY ET NT HI AN A AM 00 09 09 00 30 10 EA 14 NI Ac OX 78 -0 -[address] 07 CH ti IC 12 1- 0- 00 SI 27 OL ve IL 61 20 20 DE S LI 30 09 09 JAMIN N 5 PH E 50 AR A 0 MA MG CY CA OF PS CY UL NT E HI AN A LO 60 07 08 01 30 30 EA 13 NI Ac RA 50 -0 -[address] 38 CH ti TA 50 6- 7- 00 SI 63 OL ve DI 14 20 20 DE S NE 70 09 09 JAMIN 8 PH E 10 AR A MA MG CY TA OF BL CY ET NT HI AN A IB 53 07 07 00 15 5 EA 13 SO Ac UP 74 -1 -[address] 50 KA ti RO 60 5- 0- 00 SI 10 N ve FE 46 20 20 DE BA N 50 09 09 BA 60 5 PH TU 0 AR ND MG MA E CY O TA BL OF ET CY NT HI AN A LO 60 07 07 00 30 30 EA 13 NI Ac RA 50 -0 -[address] 38 CH ti TA 50 6- 6- 00 SI 63 OL ve DI 14 20 20 DE S NE 70 09 09 JAMIN 8 PH E 10 AR A MA MG CY TA OF BL CY ET NT HI AN A CABALLERO 53 06 07 00 20 10 EA 13 NI Ac LF 48 -2 -[address] 26 CH ti AM 90 4- 2- 00 SI 09 OL ve ET 14 20 20 DE S HO 60 09 09 JAMIN XA 1 PH E ZO AR A LE MA -T CY MP OF DS CY NT TA HI BL AN ET A 59 10 07 01 8. 25 EA 99 MILLER Ac 31 -0 -[address] 69 RV ti 00 1- 2- 0 SI 51 EY ve 57 20 20 DE 92 08 09 JAMIN 0 PH DI AR MA CY OF CY NT HI AN A LO 60 04 06 02 30 30 EA 12 NI Ac RA 50 -1 -[address] 32 CH ti TA 50 3- 8- 00 SI 26 OL ve DI 14 20 20 DE S NE 70 09 09 JAMIN 8 PH E 10 AR A MA MG CY TA OF BL CY ET NT HI AN A LO 45 04 05 01 30 30 EA 12 NI Ac RA 80 -1 -[address] 32 CH ti TA 20 3- 1- 00 SI 26 OL ve DI 65 20 20 DE S NE 08 09 09 JAMIN 7 PH E 10 AR A MA MG CY TA OF BL CY ET NT HI AN A LO 45 04 04 00 10 30 EA 12 NI Ac RA 80 -1 -[address] 32 CH ti TA 20 3- 3- 00 SI 26 OL ve DI 65 20 20 DE S NE 08 09 09 JAMIN 7 PH E 10 AR A MA MG CY TA OF BL CY ET NT HI AN A AM 00 02 03 00 36 10 EA 11 NI Ac OX 78 -2 -[address] 62 CH ti IC 12 5- 2- 00 SI 85 OL ve IL 02 20 20 DE S LI 00 09 09 JAMIN N 5 PH E 25 AR A 0 MA MG CY CA OF PS CY UL NT E HI AN A LO 60 01 02 01 30 30 EA 11 NI Ac RA 50 -1 -[address] 13 CH ti TA 50 9- 6- 00 SI 92 OL ve DI 14 20 20 DE S NE 70 09 09 JAMIN 1 PH E 10 AR A MA MG CY TA OF BL CY ET NT HI AN A LO 60 01 01 00 30 30 EA 11 NI Ac RA 50 -1 -[address] 13 CH ti TA 50 9- 0- 00 SI 92 OL ve DI 14 20 20 DE S NE 70 09 09 JAMIN 1 PH E 10 AR A MA MG CY TA OF BL CY ET NT HI AN A CE 00 12 01 00 36 9 EA 10 NI Ac PH 09 -2 -[address] 79 CH ti AL 33 2- 1- 00 SI 29 OL ve EX 14 20 20 DE S IN 50 08 09 JAMIN 1 PH E 25 AR A 0 MA MG CY CA OF PS CY UL NT E HI AN A LO 60 12 01 00 30 30 EA 10 NI Ac RA 50 -2 -[address] 79 CH ti TA 50 2- 1- 00 SI 30 OL ve DI 14 20 20 DE S NE 70 08 09 JAMIN 1 PH E 10 AR A MA MG CY TA OF BL CY ET NT HI AN A LO 60 11 12 00 30 30 EA 10 NI Ac RA 50 -2 -[address] 36 CH ti TA 50 1- 4- 00 SI 73 OL ve DI 14 20 20 DE S NE 70 08 08 JAMIN 1 PH E 10 AR A MA MG CY TA OF BL CY ET NT HI AN A CE 00 11 12 00 36 9 EA 10 NI Ac PH 09 -2 -[address] 36 CH ti AL 33 1- 4- 00 SI 74 OL ve EX 14 20 20 DE S IN 50 08 08 JAMIN 1 PH E 25 AR A 0 MA MG CY CA OF PS CY UL NT E HI AN A LO 60 08 11 02 30 30 EA 99 NI Ac RA 50 -2 -[address] 22 CH ti TA 50 6- 7- 00 SI 07 OL ve DI 14 20 20 DE S NE 70 08 08 JAMIN 1 PH E 10 AR A MA MG CY TA OF BL CY ET NT HI AN A 59 10 10 00 8. 25 EA 99 No Ac 31 -0 -[address] 69 t ti 00 1- 9- 0 SI 51 Av ve 57 20 20 DE ai 92 08 08 la 0 PH bl AR e MA CY OF CY NT HI AN A LO 60 08 10 01 30 30 EA 99 No Ac RA 50 -2 -[address] 22 t ti TA 50 6- 9- 00 SI 07 Av ve DI 14 20 20 DE ai NE 70 08 08 la 1 PH bl 10 AR e MA MG CY TA OF BL CY ET NT HI AN A LO 60 08 09 00 30 30 EA 99 No Ac RA 50 -2 -[address] 22 t ti TA 50 6- 1- 00 SI 07 Av ve DI 14 20 20 DE ai NE 70 08 08 la 1 PH bl 10 AR e MA MG CY TA OF BL CY ET NT HI AN A TH 50 08 08 00 30 15 EA 99 No Ac EO 11 -1 -[address] 05 t ti PH 10 2- 8- 00 SI 28 Av ve YL 45 20 20 DE ai LI 90 08 08 la NE 3 PH bl AR e ER MA CY 30 0 OF MG CY NT TA HI B AN A LO 60 07 08 00 30 30 EA 98 No Ac RA 50 -2 -[address] 87 t ti TA 50 8- 4- 00 SI 06 Av ve DI 14 20 20 DE ai NE 70 08 08 la 1 PH bl 10 AR e MA MG CY TA OF BL CY ET NT HI AN A LO 60 05 07 02 30 30 EA 97 No Ac RA 50 -0 -[address] 84 t ti TA 50 2- 7- 00 SI 31 Av ve DI 14 20 20 DE ai NE 70 08 08 la 1 PH bl 10 AR e MA MG CY TA OF BL CY ET NT HI AN A LO 60 05 06 01 30 30 EA 97 No Ac RA 50 -0 -[address] 84 t ti TA 50 2- 2- 00 SI 31 Av ve DI 14 20 20 DE ai NE 70 08 08 la 1 PH bl 10 AR e MA MG CY TA OF BL CY ET NT HI AN A LO 60 05 05 00 30 30 EA 97 No Ac RA 50 -0 -[address] 84 t ti TA 50 2- 8- 00 SI 31 Av ve DI 14 20 20 DE ai NE 70 08 08 la 1 PH bl 10 AR e MA MG CY TA OF BL CY ET NT HI AN A LO 60 01 04 02 30 30 EA 96 No Ac RA 50 -1 -[address] 32 t ti TA 50 2- 0- 00 SI 51 Av ve DI 14 20 20 DE ai NE 70 08 08 la 1 PH bl 10 AR e MA MG CY TA OF BL CY ET NT HI AN A LO 60 01 04 01 30 30 EA 96 No Ac RA 50 -1 -[address] 32 t ti TA 50 2- 7- 00 SI 51 Av ve DI 14 20 20 DE ai NE 70 08 08 la 1 PH bl 10 AR e MA MG CY TA OF BL CY ET NT HI AN A AZ 00 01 03 00 6. 5 EA 96 No Ac IT 09 -1 -[address] 40 t ti HR 37 7- 5- 0 SI 22 Av ve OM 14 20 20 DE ai YC 61 08 08 la IN 8 PH bl AR e 25 MA 0 CY MG OF TA CY BL NT ET HI AN A LO 60 01 03 00 30 30 EA 96 No Ac RA 50 -1 -[address] 32 t ti TA 50 2- 5- 00 SI 51 Av ve DI 14 20 20 DE ai NE 70 08 08 la 1 PH bl 10 AR e MA MG CY TA OF BL CY ET NT HI AN A 49 01 03 00 9. 3 EA 96 No Ac 88 -1 -[address] 40 t ti 40 7- 5- 0 SI 21 Av ve 46 20 20 DE ai 70 08 08 la 1 PH bl AR e MA CY OF CY NT HI AN A Results Labs Lab Lab Date Result Refere Interp Status Commen Order Detail nces retati t Range on Urinalysis macro (dipstick) panel in Urine (03-08-2017 19:19) Appeara 24-2 Clear CLEAR complet nce of 017 ed Urine 19:19 Bilirub 24-2 NEGATIV NEG complet in 017 E ed [Presen 19:19 ce] in Urine by Test strip Erythro 03-08-2 NEGATIV NEG complet cytes 017 E ed [Presen 19:19 ce] in Urine Color 03-08-2 DARK YELLOW complet of 017 YELLOW ed Urine 19:19 Ketones -24-2 NEGATIV NEG complet 017 E ed [Presen 19:19 ce] in Urine by Automat ed test strip Leukocy -24-2 NEGATIV NEG complet te 017 E ed esteras 19:19 e [Presen ce] in Urine by Automat ed test strip Nitrite -24-2 POSITIV NEG Abnorma complet 017 E l ed [Presen 19:19 ce] in Urine by Test strip Urobili -24-2 1.0 NEG complet nogen 017 ed [Presen 19:19 ce] in Urine by Test strip CHLAMYDIA AND GONORRHEA TESTING (08-17-2016 08:00) Chlamyd NEGATIV complet ia 016 E ed trachom 08:00 atis rRNA [Presen ce] in Unspeci fied specime n by Probe & target amplifi cation method Neisser NEGATIV complet ia 016 E ed gonorrh 08:00 oeae rRNA [Presen ce] in Unspeci fied specime n by Probe & target amplifi cation method CHLAMYDIA AND GONORRHEA TESTING (08-17-2016 08:00) COLLECT TV complet OR 016 ed 08:00 ETHNICI WHITE, complet TY 016 NON-HIS ed 08:00 PANIC KIT complet EXPIRAT 016 017 ed ION 08:00 DATE SYMPTOM NO complet S 016 ed 08:00 REASON VOLUNTE complet FOR 016 ER/MEDI ed REQUEST 08:00 MEDHAT PROBLEM SPECIME FEMALE complet N 016 ENDOCER ed SOURCE 08:00 VICAL PREGNAN NO complet T 016 ed 08:00 CHART [id number] complet NUMBER 016 ed 08:00 Chlamyd Pending complet ia 016 ed trachom 08:00 atis rRNA [Presen ce] in Unspeci fied specime n by Probe & target amplifi cation method Neisser Pending complet ia 016 ed gonorrh 08:00 oeae rRNA [Presen ce] in Unspeci fied specime n by Probe & target amplifi cation method CHLAMYDIA AND GONORRHEA TESTING (04-04-2016 08:00) Chlamyd NEGATIV complet ia 016 E ed trachom 08:00 atis rRNA [Presen ce] in Unspeci fied specime n by Probe & target amplifi cation method Neisser NEGATIV complet ia 016 E ed gonorrh 08:00 oeae rRNA [Presen ce] in Unspeci fied specime n by Probe & target amplifi cation method CHLAMYDIA AND GONORRHEA TESTING (04-04-2016 08:00) COLLECT TV complet OR 016 ed 08:00 ETHNICI WHITE, complet TY 016 NON-HIS ed 08:00 PANIC KIT complet EXPIRAT 016 6 ed ION 08:00 DATE SYMPTOM YES complet S 016 ed 08:00 REASON VOLUNTE complet FOR 016 ER/MEDI ed REQUEST 08:00 MEDHAT PROBLEM SPECIME FEMALE complet N 016 ENDOCER ed SOURCE 08:00 VICAL PREGNAN 04-04-2 YES complet T 016 ed 08:00 CHART 04-04- [id number] complet NUMBER 016 ed 08:00 Chlamyd 04-04- Pending complet ia 016 ed trachom 08:00 atis rRNA [Presen ce] in Unspeci fied specime n by Probe & target amplifi cation method Neisser 04-04- Pending complet ia 016 ed gonorrh 08:00 oeae rRNA [Presen ce] in Unspeci fied specime n by Probe & target amplifi cation method CHLAMYDIA AND GONORRHEA TESTING (2016 08:00) Chlamyd 01-27- POSITIV complet ia 016 E ed trachom 08:00 atis rRNA [Presen ce] in Unspeci fied specime n by Probe & target amplifi cation method Neisser NEGATIV complet ia 016 E ed gonorrh 08:00 oeae rRNA [Presen ce] in Unspeci fied specime n by Probe & target amplifi cation method CHLAMYDIA AND GONORRHEA TESTING (2016 08:00) COLLECT TV complet OR 016 ed 08:00 ETHNICI 01-27-2 WHITE, complet TY 016 NON-HIS ed 08:00 PANIC KIT complet EXPIRAT 016 7 ed ION 08:00 DATE SYMPTOM NO complet S 016 ed 08:00 REASON 01-27-2 VOLUNTE complet FOR 016 ER/MEDI ed REQUEST 08:00 MEDHAT PROBLEM SPECIME URINE complet N 016 ed SOURCE 08:00 PREGNAN 01-27-2 NO complet T 016 ed 08:00 CHART [id number] complet NUMBER 016 ed 08:00 Chlamyd -- Pending complet ia 016 ed trachom 08:00 atis rRNA [Presen ce] in Unspeci fied specime n by Probe & target amplifi cation method Neisser 01-27- Pending complet ia 016 ed gonorrh 08:00 oeae rRNA [Presen ce] in Unspeci fied specime n by Probe & target amplifi cation method CHLAMYDIA AND GONORRHEA TESTING (06-27-2011 12:32) COLLECT 09-12-2 D complet OR 011 DEIDRE ed 12:32 [facility] ETHNICI WHITE, complet TY 011 NON-HIS ed 12:32 PANIC KIT 10/27 complet EXPIRAT 011 ed ION 12:32 DATE SYMPTOM NO complet S 011 ed 12:32 REASON REVISIT complet FOR 011 /ANNUAL ed REQUEST 12:32 FAMILY PLANNIN G VISIT SPECIME FEMALE complet N 011 ENDOCER ed SOURCE 12:32 VICAL PREGNAN NO complet T 011 ed 12:32 CHART [id number] complet NUMBER 011 57 ed 12:32 Chlamyd NEGATIV complet ia 011 E ed trachom 12:32 atis rRNA [Presen ce] in Unspeci fied specime n by Probe & target amplifi cation method Neisser NEGATIV complet ia 011 E ed gonorrh 12:32 oeae rRNA [Presen ce] in Unspeci fied specime n by Probe & target amplifi cation method Procedures Procedure DOS Code Location Performer Comment DETERMINA 33035 AWOSIKA AWOSIKA TION 2 ABEL ABEL REFRACTIV E STATE FUNDUS 68438 AWOSIKA AWOSIKA PHOTOGRAP 2 ABEL ABEL HY W/INTERPR ETATION & REPORT RX&FITG 48938 AWOSIKA AWOSIKA C-LENS 2 ABEL ABEL SUPVJ CRNL LENS OU XCPT APHK CONTRACEP S4993 JOSEY DOWLING TIVE 1 [facility] DEPARTME DEPARTME CONTROL URINE 20418 P[facility] SANTIAGO 1 [facility] TEST INC [place] [address] PAMELA SANTIAGO LIPASE 1 [facility] INC INC COMPREHEN 78215 PAMELA SANTIAGO SIVE 1 [facility] METABOLIC INC INC PANEL URNLS DIP 01823 PAMELA SANTIAGO 1 [facility] STICK/TAB INC [place] [address] PAMELA SANTIAGO INFUSION 1 [facility] THERAPY/P INC INC ROPHYLAXI S /DX 1ST TO 1 HR BLOOD 42812 PAMELA SANTIAGO COUNT 1 [facility] COMPLETE INC INC AUTO&AUTO DIFRNTL WBC RADEX 20135 PAMELA SANTIAGO RIBS UNI 1 [facility] W/POSTERO INC INC ANT CH MINIMUM 3 VIEWS CULTURE 05570 PAMELA SANTIAGO BACTERIAL 1 [facility] INC INC QUANTTATI VE COLONY COUNT URINE RADIOLOGI 52230 PAMELA SANTIAGO C EXAM 1 [facility] CHEST 2 INC INC VIEWS FRONTAL&L ATERAL IADNA 00487 JOSEY DOWLING CHLAMYDIA 1 CO CO [facility] HEALTH TRACHOMAT DEPARTMN DEPARTMN IS AMPLIFIED PROBE TQ IADNA 95462 JOSEY DOWLING NEISSERIA 1 CO CO [facility] GONORRHOE DEPARTMN DEPARTMN AE AMPLIFIED PROBE TQ CONTRACEP S4993 DOWLING DOWLING TIVE 1 [facility] DEPARTMN CONTROL URINE 01742 PAMELA SANTIAGO 1 [facility] TEST INC INC VISUAL COLOR CMPRSN METHS RADIOLOGI 76546 PAMELA SANTIAGO C 1 [facility] EXAMINATI INC INC ON NECK SOFT TISSUE CONTRACEP S4993 DOWLING DOWLING TIVE 1 [facility] DEPARTMN DEPARTME CONTROL CONTRACEP S4993 DOWLING DOWLING TIVE 1 [facility] DEPARTMN CONTROL KNEE L1830 [facility] ORTHOSIS 1 IMMOBLIZE R CANVAS LONGTUDNL PREFAB RADIOLOGI 48932 PAMELA PAMELA C 1 [facility] EXAMINATI INC INC ON KNEE 3 VIEWS DETERMINA 10978 [facility] MAY TION 0 ASSOCIATE VILLALBA REFRACTIV S E STATE OPHTH 55671 [facility] 0 ASSOCIATE VILLALBA XM&EVAL S COMPRHNSV ESTAB PT 1/> 1 VISN V2104 [facility] MAY PLANO-+/- 0 ASSOCIATE VILLALBA 4.00D S SPHER 2.12-4.00 D CYL EA FITTING 35178 [facility] MAY SPECTACLE 0 ASSOCIATE DEEJAY S XCPT S APHAKIA MONOFOCAL FRAMES V2020 [facility] PURCHASES 0 ASSOCIATE DEEJAY Rodriguez IADNA 19970 JOSEY BLANCOON NEISSERIA 0 [facility] AMPLIFIED PROBE TQ CONTRACEP S4993 JOSEY DOWLING TIVE 0 [facility] DEPARTMN CONTROL IADNA 98307 DOWLING JOSEY CHLAMYDIA 0 CO CO [facility] HEALTH TRACHOMAT [facility] [place] [address] PAMELA SANTIAGO INFUSION 0 [facility] THERAPY/P INC INC ROPHYLAXI S /DX 1ST TO 1 HR BLOOD 13784 PAMELA RAMACHANDRANON COUNT 0 [facility] COMPLETE INC INC AUTO&AUTO DIFRNTL WBC CT PELVIS 13185 PAMELA SANTIAGO W/O 0 [facility] CONTRAST INC INC MATERIAL 3D 15996 PAMELA SANTIAGO RENDERING 0 [facility] INC INC W/INTERP& [place] [address] PAMELA SANTIAGO ABDOMEN 0 [facility] W/O INC INC CONTRAST MATERIAL URNLS DIP 82077 PAMELA PAMELA 0 [facility] STICK/TAB INC INC LET REAGENT AUTO MICROSCOP Y COMPREHEN 56664 PAMELA RAMACHANDRANON SIVE 0 [facility] [address] PAMELA SANTIAGO AMYLASE 0 [place] [address] PAMELA SANTIAGO LIPASE 0 [facility] INC INC URINE 95732 PAMELA SANTIAGO 0 [facility] TEST INC INC VISUAL COLOR CMPRSN METHS CONTRACEP S4993 JOSEY DOWLING TIVE 0 [facility] CONTROL T T URNLS DIP 60659 PAMELA RAMACHANDRANON 0 [facility] STICK/TAB INC INC [place] [address] PAMELA SANTIAGO STREPTOCO 0 [facility] CCUS INC INC GROUP A URINE 35043 PAMELA SANTIAGO 0 [facility] TEST INC INC VISUAL COLOR CMPRSN METHS URINE 30960 PAMELA SANTIAGO 9 [facility] TEST INC INC VISUAL COLOR CMPRSN METHS URNLS DIP 11041 PAMELA SANTIAGO 9 [facility] STICK/TAB INC INC LET REAGENT AUTO MICROSCOP Y RADIOLOGI 80844 PAMELA SANTIAGO C EXAM 9 [facility] CHEST 2 INC INC VIEWS FRONTAL&L ATERAL CONTRACEP S4993 [facility] TIVE 9 [facility] ACCT DEPARTMEN CONTROL T IAADI 30912 PAMELA SANTIAGO INFLUENZA 9 [facility] B VIRUS INC INC IAADI 87169 PAMELA SANTIAGO INFFLUENZ 9 [facility] A A VIRUS INC INC RADIOLOGI 68879 PAMELA SANTIAGO C EXAM 9 [facility] CHEST 2 INC INC VIEWS FRONTAL&L ATERAL URINE 34857 PAMELA SANTIAGO 9 [facility] TEST INC INC VISUAL COLOR CMPRSN METHS CONTRACEP S4993 [facility] DOWLING TIVE 9 [facility] FRAMES V2020 MARQUIS OLVERA, PURCHASES 9 RUFINA Lopez OD DETERMINA 92196 MARQUIS OLVERA TION 9 RUFINA Lopez REFRACTIV OD E STATE 1 VISN V2104 MARQUIS OLVERA, PLANO-+/- 9 RUFINA Lopez 4.00D OD SPHER 2.12-4.00 D CYL EA FITTING 80775 MARQUIS OLVERA, SPECTACLE 9 RUFINA Lopez S XCPT OD APHAKIA MONOFOCAL OPHTH 07762 MARQUIS OLVERA, MEDICAL 9 RUFINA Lopez XM&EVAL OD COMPRHNSV ESTAB PT 1/> CONTRACEP S4993 DHS/CO DEBO CO TIVE 9 HEALTH HEALTH [facility] ACCT T CONTROL URINE 50792 PAMELA RAMACHANDRANON 9 [facility] TEST INC INC VISUAL COLOR CMPRSN METHS RADEX 57256 [place] ANGELICA, WRIST 9 [facility] COMPLETE IMAGING MINIMUM 3 ASSOCIATE VIEWS S RADEX 18907 [place] ANGELICA, FINGR 9 [facility] MINIMUM 2 IMAGING VIEWS ASSOCIATE S US BREAST 39709 PAMELA SANTIAGO REAL 9 [facility] TIME INC INC W/IMAGE DOCUMENTA TION PRESSURIZ 56609 PAMELA SANTIAGO ED/NONPRE 8 [facility] SSURIZED INC INC INHALATIO N TREATMENT BRNCDILAT 28960 NIC KENDALL 8 [facility] PRE&POST- PROF SERV BRNCDILAT ADMN FUNCTIONA 11223 PAMELA SANTIAGO L 8 [facility] RESIDUAL INC INC CAPACITY OR RESIDUAL VOLUME DETER 85164 PAMELA SANTIAGO MALDISTRI 8 [facility] BJ OF INC INC INSPIRED GAS N WSHOT CURVE DETER 42576 IRISH KENDALL 8 [facility] VOL 1 [place] [address] [place] FAB, ABDOMINAL 8 MEDICAL JASMIN P REAL IMAGING TIME ASSOCIATE W/IMAGE S LIMITED RADEX 11083 [place] ANGELICA, UPPER GI 8 [facility] W/WO IMAGING GLUCAGON/ ASSOCIATE DELAY S IMAGES W/KUB RADIOLOGI 14076 [place] ANGELICA C EXAM 8 [facility] CHEST 2 IMAGING VIEWS ASSOCIATE FRONTAL&L S ATERAL ECG 64764 PAMELA EWING, ROUTINE 8 [facility] W/LEAST PROF SERV 12 LDS I&R ONLY ECG 65414 PAMELA SANTIAGO ROUTINE 8 [facility] ECG INC INC W/LEAST 12 LDS TRCG ONLY W/O I&R FITTING 25029 MARQUIS OLVERA, RONALDO 8 RUFINA Lopez S XCPT OD APHAKIA MONOFOCAL OPHTH 13826 MARQUIS OLVERA, MEDICAL 8 RUFINA Lopez XM&EVAL OD COMPRHNSV ESTAB PT 1/> DETERMINA 21032 ROLY ARVIZU 8 RUFINA SAULO T REFRACTIV OD E STATE FRAMES V2020 MARQUIS OLVERA, PURCHASES 8 RUFINA VERNON T OD 1 VISN V2103 MARQUIS OLVERA, PLANO 8 RUFINA VERNON T TO+/-4.00 OD D SPHER 0.12-2.00 D CYL EA URINE 64826 PAMELA PAMELA 8 [facility] TEST INC INC VISUAL COLOR CMPRSN METHS BLOOD 18972 PAMELA SANTIAGO COUNT 8 [facility] COMPLETE INC INC AUTO&[place] [address] PAMELA SANTIAGO TROPONIN 8 [facility] QUANTITAT INC INC SHILPI RADIOLOGI 89516 Bhavana CRUMP EXAM 8 [facility] CHEST 2 IMAGING VIEWS ASSOCIATE FRONTAL&L S ATERAL CT THORAX 08767 PAMELA SANTIAGO W/O 8 [facility] CONTRAST INC INC MATERIAL 3D 79656 BRANDY CRUMP 8 [facility]ICAL [facility] IMAGING W/INTERP& ASSOCIATE POSTPROC S DIFF WORK STATION CREATINE 91148 PAMELA SANTIAGO KINASE MB 8 MEM [facility] HOSP FRACTION INC INC ONLY BASIC 85551 PAMELA SANTIAGO METABOLIC 8 [facility] PANEL INC INC CALCIUM TOTAL CREATINE 13682 PAMELA SANTIAGO KINASE 8 [facility] TOTAL INC INC FIBRIN 00331 PAMELA SANTIAGO DGRADJ 8 [facility] PRODUCTS INC INC D-DIMER QUAL/SEMI VENICE SEDIMENTA 65294 PAMELA SANTIAGO TION RATE 8 [facility] RBC INC INC NON-AUTOM ATED Encounters Encounter Start End Date Code Location Performer Type Date PERIODIC 04595 ABIGAIL HAYES PREVENTIV [address] [facility] PATIENT DEPT. DEPT. 18-39 YRS EMERGENCY 50846 [facility] 6 6 ELISA JEA DEPARTMEN EMERGENCY T VISIT PHYS HIGH/URGE NT SEVERITY OFFICE 76278 JOSEY DOWLING OUTPATIEN 2 2 CO CO T VISIT [facility] HEALTH 10 DEPARTME DEPARTME MINUTES OFFICE 86398 GAYATHRI TRINH OUTPATIEN 2 2 MARSHALL MARSHALL T VISIT 15 MINUTES OFFICE 51619 AWOSIARETHA AWOSIKA OUTPATIEN 2 2 ABEL ABEL T NEW 30 MINUTES OFFICE 56910 JOSEY HATHAWAYPATIEN 1 1 CO CO T VISIT HEALTH HEALTH 10 DEPARTMN DEPARTMN MINUTES EMERGENCY 90119 ARIN GRIFFITH 1 1 EMERGENCY DEPARTMEN SERVICES T VISIT HIGH/URGE NT SEVERITY HOSPITAL [facility] - 1 1 [facility] OUTPATIEN INC T PERIODIC 19845 JOSEY DOWLING PREVENTIV 1 1 CO CO E MED EST HEALTH HEALTH PATIENT DEPARTMN DEPARTMN 18-39 YRS OFFICE 92134 GAYATHRI MARTINEN 1 1 MARSHALL MARSHALL T VISIT 15 MINUTES EMERGENCY 25114 ARIN CRUZ 1 1 [facility] T VISIT HIGH/URGE NT SEVERITY HOSPITAL PAM[facility]A - 1 1 [facility] OUTPATIEN INC T EMERGENCY 40456 PAMELA 1 1 [facility] DEPARTMEN INC T VISIT LOW/MODER SEVERITY OFFICE 28276 JOSEY VELÁZQUEZ 1 1 CO CO T VISIT HEALTH HEALTH 10 [facility] DEPARTMN MINUTES OFFICE 50290 JOSEY VELÁZQUEZ 1 1 CO CO T VISIT HEALTH HEALTH 10 [facility] MINUTES OFFICE 44623 [facility] PETTEY CONSULTAT 1 1 PHYSICIAN SANDRA ALFARO NEW/ESTAB PATIENT 60 MIN OFFICE 80048 GAYATHRI VELÁZQUEZ 1 1 MARSHALL MARSHALL T VISIT 15 MINUTES HOSPITAL [facility] - 1 1 [facility] OUTPATIEN INC T EMERGENCY 50007 PAMELA 1 1 [facility] DEPARTMEN INC T VISIT LOW/MODER SEVERITY EMERGENCY 23578 ARIN BRIGGS 1 1 EMERGENCY DEPARTMEN SERVICES T VISIT HIGH/URGE NT SEVERITY PERIODIC 70088 JOSEY DOWLING PREVENTIV 0 0 CO CO E [facility] PATIENT DEPARTMN DEPARTMN 12-17YRS EMERGENCY 04207 PAMELA 0 0 [facility] DEPARTMEN INC T VISIT HIGH/URGE NT SEVERITY HOSPITAL P[facility]A - 0 0 [facility] OUTPATIEN INC T EMERGENCY 51518 ARIN LEDBETTER, DEPT 0 0 EMERGENCY [facility] VISIT SERVICES HIGH SEVERITY& ASSOCIATE THREAT S [facility] OFFICE 36117 GAYATHRI TRINH OUTPATIEN 0 0 SUNDEEP W SUNDEEP W T VISIT 15 MINUTES OFFICE 20771 GAYATHRI TRINH OUTPATIEN 0 0 SUNDEEP W SUNDEEP W T VISIT 15 MINUTES OFFICE 26779 JOSEY DOWLING OUTPATIEN 0 0 CO CO T VISIT [facility] MIN[facility] T T OFFICE 15398 GAYATHRI TRINH OUTPATIEN 0 0 SUNDEEP W SUNDEEP W T VISIT 15 MINUTES EMERGENCY 81939 ARIN LEDBETTER, 0 0 EMERGENCY [facility] SERVICES T VISIT HIGH/URGE ASSOCIATE NT S SEVERITY EMERGENCY 05432 PAMELA 0 0 [facility] DEPARTMEN INC T VISIT MODERATE SEVERITY [facility]OSPITAL [facility] - 0 0 [facility] OUTPATIEN [facility] T HOSPITAL PAMEL[facility] - 0 0 [facility] OUTPATIEN [facility] T EMERGENCY 47656 ARIN RENTERIA 0 0 EMERGENCY [facility] SERVICES SHANELLE T VISIT HIGH/URGE ASSOCIATE NT S SEVERITY EMERGENCY 18132 ARIN LEDBETTER, 9 9 EMERGENCY [facility] SERVICES T VISIT HIGH/URGE ASSOCIATE NT S SEVERITY EMERGENCY 34487 PAMELA 9 9 [facility] DEPARTMEN INC T VISIT LOW/MODER SEVERITY [facility]OSPITAL [facility] - 9 9 [facility] OUTPATIEN INC T OFFICE 61516 [facility] DOWL[facility] OUTPATIEN 9 9 HEALTH CO T VISIT [facility] 10 BANK ACCT DEPARTMEN MINUTES T OFFICE 56187 RYAN DAVIS OUTPATIEN 9 9 NAIMA A NAIMA A T VISIT 15 MINUTES HOSPITAL [facility] - 9 9 [facility] OUTPATIEN INC T EMERGENCY 51593 ARIN LEDBETTER, 9 9 EMERGENCY NITIN S DEPARTMEN SERVICES T VISIT HIGH/URGE ASSOCIATE NT S SEVERITY EMERGENCY 96402 PAMELA 9 9 [facility] DEPARTMEN INC T VISIT MODERATE SEVERITY PERIODIC 27497 DHS/CO JOSEY PREVENTIV 9 9 HEALTH CO E MED EST [facility] PATIENT [facility] ACCT DEPARTMEN - T OFFICE 94764 DHS/CO DEBO CO OUTPATIEN 9 9 HEALTH HEALTH T NEW 10 CENTRAL DEPARTMEN MINUTES BANK ACCT T OFFICE 65753 RYAN DAVIS OUTPATIEN 9 9 NAIMA A NAIMA A T VISIT 15 MINUTES EMERGENCY 65493 PAMELA 9 9 [facility] DEPARTMEN INC T VISIT LOW/MODER SEVERITY [facility]OSPITAL [facility] - 9 9 [facility] OUTPATIEN INC T EMERGENCY 23041 ARIN HATFIELD, 9 9 EMERGENCY [place] DEPARTMEN SERVICES O T VISIT MODERATE ASSOCIATE SEVERITY S HOSPITAL PAMELA - 9 9 [facility] OUTPATIEN INC T OFFICE 92986 DHS/CO JOSEY OUTPATIEN 9 9 HEALTH CO T VISIT [facility] 15 BANK ACCT DEPARTMEN MINUTES T OFFICE 26323 RYAN DAVIS OUTPATIEN 9 9 NAIMA A NAIMA A T VISIT 15 MINUTES OFFICE 00802 RYAN DAVIS OUTPATIEN 9 9 NAIMA A NAIMA A T VISIT 15 MINUTES OFFICE 53691 MELANIA CLAIRE 8 8 [facility] KEVIN T VISIT INTERNAL 15 MED MINUTES HOSPITAL [facility] - 8 8 [facility] OUTPATIEN INC T OFFICE 41157 ZULMA MELANIA BURGESS 8 8 VALLEY KEVIN T VISIT INTERNAL 15 MED MINUTES HOSPITAL P[facility]A - 8 8 [facility] INC T OFFICE [id number] RYAN DAVIS OUTPATIEN 8 8 NAIMA A NAIMA A T VISIT 15 MINUTES OFFICE [id number] RYAN DAVIS OUTPATIEN 8 8 NAIMA A NAIMA A T VISIT 15 MINUTES [facility] - 8 8 [facility] INC T OFFICE [id number] RYAN DAVIS OUTPATIEN 8 8 NAIMA A NAIMA A T VISIT 15 MINUTES OFFICE [id number] RYAN DAVIS OUTPATIEN 8 8 NAIMA A NAIMA A T VISIT 15 MINUTES OFFICE [id number] RYAN DAVIS OUTPATIEN 8 8 NAIMA A NAIMA A T VISIT 15 MINUTES OFFICE [id number] RYAN DAVIS OUTPATIEN 8 8 NAIMA A NAIMA A T VISIT 15 MINUTES [facility] - 8 8 [facility] INC T EMERGENCY [id number] PAMELA 8 8 [facility] MODERATE [facility]VERITY
--- OUTSIDE RECORDS SUMMARY | 2017-03-14 08:26 | External Medical Summary Rpt ---
Author Author , Organization [employer] Address Unknown Phone Unavailable Care Team Providers Care Cvor Nurse Name Role Phone GAYATHRI COWAN Unavailable Unavailable MARSHALL GAYATHRI OLIVARES, ARNOLD Unavailable Unavailable MARSHALL SUNDEEP TRINH W, Unavailable Unavailable SUNDEEP TRINH W AWOSIKA ABEL, AWOSIKA Unavailable Unavailable ABEL AWOSIKA ABEL, AWOSIKA Unavailable Unavailable ABEL [facility] Unavailable Unavailable HEALTH C, [facility] SHAHAB DOMINGUEZ, Unavailable Unavailable SHAHAB DOMINGUEZ [facility] Un[facility] Un[facility], Unavailable Unavailable [facility] Un[facility] [place] [facility] [place] [facility] Unavailable [facility]available [facility] Unavailable [facility] Unavailable Unavailable DEPT., [facility] DEPT. [facility] Unavailable Unavailable DEPT., [facility] DEPT. NITIN LEDBETTER, Unavailable Unavailable NITIN LEDBETTER GRAY ROB Unavailable Unavailable [facility] Un[facility], [facility] KEVIN BURGESS HARVEY, Unavailable Unavailable KEVIN [facility], Unavailable Unavailable [facility], [facility] KROWEN MILNER Unavailable Unavailable ALHAJI EWING, Unavailable Unavailable ALHAJI EWING [facility] Unavailable Unavailable SERVICES, [facility] Unavailable Unavailable DEPARTMENT, [facility] JASMIN SANON, Unavailable Unavailable JASMIN SANON JOE A, Unavailable Unavailable NAIMA DAVIS PETREYES Unavailable Unavailable JAM RADHA JEA, RADHA Unavailable Unavailable JEA [id number], Unavailable Unavailable [id number] Unavailable Unavailable DEPARTME, [facility] Unavailable Unavailable DEPARTME, [facility] Unavailable Unavailable DEPARTMENT, [facility] MAY SAEED Unavailable Unavailable SAULO KHAN, Unavailable Unavailable SAULO OLVERA SOKAN BAB, SOKAN BAB Unavailable Unavailable SOKAN, CHEKO O, Unavailable Unavailable SOKAN, CHEKO O [facility] Unavailable Unavailable EMERGENCY PHYS, [facility] SHANELLE RENTERIA III, Unavailable Unavailable SHANELLE RENTERIA III Purpose Continuity of Care Document - 10-31-2007 through 2016 Problems Code Diagnosis DOS Provider Status [id number] ENCOUNTER 08-17-2016 [place] 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 ABNORMAL FIND Z3044 ENCOUNTR 08-17-2016 [facility] SURVEILLANC [facility]MON DEPT. CONTRACEPT O900 DISRUPTION 04-30-2016 [facility] DELIVERY PHYS WOUND 2662 OTHER 12-07-2011 JOSEY B-COMPLEX CO HEALTH DEFICIENCIE DEPARTME S V2541 SURVEILLANC 12-07-2011 JOSEY E PREV CO HEALTH PRESCRIBED DEPARTME CONTRACEPT PILL 5999 UNSPECIFIED 11-04-2011 GAYATHRI OLIVARES DISORDER OF URETHRA&URI NARY TRACT 58233 RETINAL 11-02-2011 AWOSIKA ABEL NERVE FIBER BUNDLE DEFECTS 3671 MYOPIA 11-02-2011 AWOSIKA ABEL 44176 OTHER 11-02-2011 AWOSIKA ABEL CHRONIC ALLERGIC CONJUNCTIVI TIS 6264 IRREGULAR 08-04-2011 [facility] MENSTRUAL CO HEALTH CYCLE DEPARTME 48129 HORDEOLUM 06-29-2011 [facility] 78456 PAINFUL 06-29-2011 [facility] 91649 OTHER CHEST 06-29-2011 [facility] V7231 ROUTINE 06-27-2011 [facility]ALTH AL DEPARTME EXAMINATION 4619 ACUTE 04-11-2011 ARNOLD MARSHALL SINUSITIS, UNSPECIFIED 8470 NECK SPRAIN 04-02-2011 [facility] 94756 CONTUSION 12-10-2010 [facility] 07664 PAIN IN 12-09-2010 GAYATHRI MARSHALL JOINT, LOWER LEG 8449 SPRAIN&STRA 12-02-2010 [facility] IN OF [facility] UNSPECIFIED INC SITE OF KNEE&LEG 69863 REGULAR 08-20-2010 [facility] 62532 ABDOMINAL 05-12-2010 [facility] PAIN, MEDICAL UNSPECIFIED IMAGING ASS SITE 30233 ABDOMINAL 05-12-2010 ARIN PAIN, EMERGENCY GENERALIZED SERVICES ASSOCIATES 73595 UNSPECIFIED 04-27-2010 ARNOLD, INFECTIVE SUNDEEP W OTITIS EXTERNA 4660 ACUTE 02-20-2010 ARNOLD, BRONCHITIS SUNDEEP W 13800 ASTHMA 10-25-2009 [facility] UNSPECIFIED [facility]ERGENCY WITH SERVICES EXACERBATIO ASSOCIATES N 75752 ASTHMA, 09-17-2009 [facility] UNSPECIFIED EMERGENCY , SERVICES UNSPECIFIED ASSOCIATES STATUS 7862 COUGH 09-17-2009 [facility] 5110 PLEURISY 07-10-2009 [facility] WITHOUT EMERGENCY MENTION SERVICES EFFUS/CURRE ASSOCIATES NT TB 514 PULMONARY 07-10-2009 [facility] HYPOSTASIS ASSOCIATES V720 EXAMINATION 06-04-2009 MARQUIS Valdez OF EYES RUFINA OD AND VISION V2503 ENCOUNTER 05-22-2009 [facility] EM[facility]GENCY HEALTH CONTRACEPT CENTRAL CNSL&PRESCR BANK ACCT IPTION 9595 INJURY 05-01-2009 RYAN, OTHER AND NAIMA Alves UNSPECIFIED FINGER 76593 PAIN IN 04-29-2009 [facility] JOINT, EMERGENCY FOREARM SERVICES ASSOCIATES 87210 OTHER HAND 04-29-2009 [facility] SPRAIN AND MEDICAL STRAIN IMAGING [facility] E8498 OTHER 04-29-[address] OF IMAGING OCCURRENCE ASSOCIATES E9170 STRIKE 04-29-2009 [facility] AGNST/STRUC MEDICAL K ACC IMAGING SPORTS W/O ASSOCIATES SUBSQT FALL 32284 LUMP OR 01-13-2009 [facility] MASS IN MEDICAL BREAST IMAGING ASS[facility] 4779 ALLERGIC 12-27-2008 RYAN RHINITIS NAIMA A CAUSE UNSPECIFIED 4640 ACUTE 12-10-2008 RYAN LARYNGITIS NAIMA A 41120 COUGH 07-16-2008 [facility] ASTHMA INTERNAL MED 64397 OTHER 07-07-2008 [place] [facility] [place] [address] UNSPECIFIED 07-02-2008 [facility] [place] [facility] INTERNAL MED ABNORMALITY 00654 ABDOMINAL 06-19-2008 [facility] PAIN, MEDICAL EPIGASTRIC IMAGING ASSOCIATES 02002 CHEST PAIN 06-14-2008 [place] UNSPECIFIED [facility] PROF SERV 5118 PLEURISY 10-31-2007 [place] W/OTH SPEC [facility] FORMS EFFUS INC NO TUBERCULOUS 7931 NONSPEC 10-31-2007 [facility] FIND RAD MEDICAL OTH EXAM IMAGING BODY [...] 90 L- 76 MC 7 G IN [facility] 65 03 04 30 30 00 KR [...] 90 L- 76 MC 7 G IN [facility] 65 03 03 30 30 00 KR [...] 7- 3- 00 SI 03 LD ve KS 02 20 20 DE ED 20 10 [...] 7- 7- 00 SI 03 LD ve KS 02 20 20 DE ED 20 10 [...] 3- 5- 00 SI 19 LD ve KS 02 20 20 DE ED 20 10 [...] 8- 7- 00 SI 82 Av ve KS 50 20 20 DE ai AM 91 [...] 20 20 DE LI [address] N 5 PH CH 50 AR AE [...] 8- 4- 00 SI 82 Av ve KS 00 20 20 DE ai AM 70 [...] 0 7. 10 EA 18 AR Ac KS 06 -1 -[address] 33 NO [...] 8- 6- 00 SI 82 Av ve KS 00 20 20 DE ai AM 70 [...] 2- 2- 00 SI 97 Av ve KS 34 20 20 DE ai AM 40 10 10 la 5 PH bl HB AR e R MA 40 CY MG OF TA CY BL NT ET HI AN A ME 00 05 05 0 21 6 EA 17 GA Ac TH 78 -0 -[address] 43 IN ti YL 15 2- 2- 00 SI 20 EY ve KS 02 20 20 DE ED [address] NI 7 PH CH SO AR AE LO MA L NE CY S 4 OF MG CY DO NT SE HI PK AN A AZ 00 05 05 0 6. 5 EA 17 GA Ac IT 09 -0 -[address] 43 IN ti HR 37 2- 2- 0 SI 21 EY ve OM 14 20 20 DE YC [address] IN 8 PH CH AR AE 25 [...] 2- 3- 00 SI 97 Av ve KS 34 20 20 DE ai AM 40 [...] 2- 2- 00 S 00 Av ve KS 34 20 20 PH 9 ai AM [...] 3- 1- 00 SI 19 LD ve KS 02 20 20 DE ED 20 10 10 RI NI 7 PH CH SO AR AR LO MA D NE CY W 4 OF MG CY NT DO HI SE AN PK A CI 55 02 02 00 15 15 DE 63 No Ac TA 11 -0 -1 .0 AN 90 t ti LO 10 2- 1- 00 S 86 Av ve KS 34 20 20 PH 0 ai AM [...] CY BL NT ET HI AN A KS 00 01 01 00 10 5 EA [...] 8- 4- 00 S 35 Av ve KS 34 20 20 PH 4 ai AM [...] 20 AI YC [address] IN 1 PH CH AR AE 25 M L 0 #3 S MG 93 8 TA BL ET ME 00 12 12 00 21 6 RI 81 GA Ac TH 60 -0 -1 .0 TE 16 IN ti YL 34 3- 7- 00 42 EY ve KS 59 20 20 AI ED [address] NI 5 PH CH SO AR AE LO M L NE #3 S 4 93 8 MG DO SE PK CI 55 12 12 00 15 15 DE 63 No Ac TA 11 -0 -1 .0 AN 88 t ti LO 10 8- 7- 00 S 35 Av ve KS 34 20 20 PH 4 ai AM [...] 0- 9- 00 S 05 Av ve KS 34 20 20 PH 3 ai AM [...] 20 20 DE YC [address] IN 8 PH CH AR AE 25 MA L 0 CY S MG OF TA CY BL NT ET HI AN A ME 00 09 10 00 21 6 EA 14 GA Ac TH 78 -2 -[address] 43 IN ti YL 15 6- 8- 00 SI 34 EY ve KS 02 20 20 DE ED [address] NI 7 PH CH SO AR AE [...] NO complet T 016 ed 08:00 CHART [id number] complet NUMBER 016 ed 08:00 [place] Pending [...] complet T 016 ed 08:00 CHART 04-04- [id number] complet NUMBER 016 ed 08:00 [place] 04-04- [...] NO complet T 016 ed 08:00 CHART [id number] complet NUMBER 016 ed 08:00 [place] -- [...] D complet OR 011 DEIDRE ed 12:32 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 WHITE, complet TY 011 NON-HIS ed 12:32 PANIC KIT 10/27 complet EXPIRAT 011 ed ION 12:32 DATE SYMPTOM NO complet S 011 ed 12:32 REASON REVISIT complet FOR 011 /ANNUAL ed REQUEST 12:32 FAMILY PLANNIN G VISIT SPECIME FEMALE complet N 011 ENDOCER ed SOURCE 12:32 VICAL PREGNAN NO complet T 011 ed 12:32 CHART [id number] complet NUMBER 011 57 ed 12:32 Chlamyd [...] Procedure DOS Code Location Performer Comment DETERMINA 44909 AWOSIKA AWOSIKA TION 2 ABEL ABEL REFRACTIV E STATE FUNDUS 12058 AWOSIKA AWOSIKA PHOTOGRAP 2 ABEL ABEL HY W/INTERPR ETATION & REPORT RX&FITG 40977 AWOSIKA AWOSIKA C-LENS 2 ABEL ABEL SUPVJ CRNL LENS OU XCPT APHK CONTRACEP S4993 JOSEY DOWLING TIVE 1 CO [facility] DEPARTME DEPARTME CONTROL URINE 66618 [facility] SANTIAGO 1 [facility] TEST INC [place] [address] [facility] SANTIAG[facility] LIPASE 1 [facility] INC INC COMPREHEN 12367 [facility]A SANTIAG[facility] SIVE 1 [facility] METABOLIC INC INC PANEL URNLS DIP 01555 [facility] SANTIAGO 1 [facility] STICK/TAB INC [place] [address] [facility] S[facility] INFUSION 1 [facility] THERAPY/P INC INC ROPHYLAXI S /DX 1ST TO 1 HR BLOOD 82438 [facility] S[facility] COUNT 1 [facility] COMPLETE INC INC AUTO&AUTO DIFRNTL WBC RADEX 33970 [facility] RIBS UNI 1 [facility] W/POSTERO INC INC ANT CH MINIMUM 3 VIEWS CULTURE 43827 [facility] BACTERIAL 1 [facility] INC INC QUANTTATI VE COLONY COUNT URINE RADIOLOGI 73036 [facility] S[facility] C EXAM 1 [facility] CHEST 2 INC INC VIEWS FRONTAL&L ATERAL IADNA 68304 JOSEY DOW[facility]ING CHLAMYDIA 1 CO CO [facility] TRACHOMAT DEPARTTN DEPARTTN IS AMPLIFIED PROBE TQ IADNA 31105 JOSEY DOWLING NEISSERIA 1 CO CO [facility] GONORRHOE DEPARTTN DEPARTTN AE AMPLIFIED PROBE TQ CONTRACEP S4993 [facility] DOWLING TIVE 1 CO [facility] DEPARTTN CONTROL URINE 70572 [facility]A SANTIAGO 1 [facility] TEST INC INC VISUAL COLOR CMPRSN METHS RADIOLOGI 71904 [facility]A SANTIAGO C 1 [facility] EXAMINATI INC INC ON NECK SOFT TISSUE CONTRACEP S4993 [facility] DOW[facility] TIVE 1 CO [facility] DEPARTTN DEPARTME CONTROL CONTRACEP S4993 [facility] D[facility] TIVE 1 CO [facility] DEPARTTN CONTROL KNEE L1830 [facility] ORTHOSIS 1 IMMOBLIZE R CANVAS LONGTUDNL PREFAB RADIOLOGI 79655 PAMELA PAMELA C 1 [facility] EXAMINATI INC INC ON KNEE 3 VIEWS DETERMINA 58072 [facility] MAY TION 0 ASSOCIATE VILLALBA REFRACTIV S E STATE OPHTH 47642 [facility]YE [facility] MEDICAL 0 ASSOCIATE VILLALBA XM&EVAL S COMPRHNSV ESTAB PT 1/> 1 VISN V2104 [facility] MAY PLANO-+/- 0 ASSOCIATE VILLALBA 4.00D S SPHER 2.12-4.00 D CYL EA FITTING 81362 [facility] MAY SPECTACLE 0 ASSOCIATE DEEJAY S XCPT S APHAKIA MONOFOCAL FRAMES V2020 [facility] PURCHASES 0 ASSOCIATE DEEJAY Rodriguez IADNA 29475 JOSEY BLANCOON NEISSERIA 0 [facility] AMPLIFIED PROBE TQ CONTRACEP S4993 JOSEY DOWLING TIVE 0 CO [facility] DEPARTTN CONTROL IADNA 24907 DOWLING JOSEY CHLAMYDIA 0 CO CO [facility] TRACHOMAT [facility] [place] [place] [address] [facility] SANTIAG[facility] INFUSION 0 [facility] THERAPY/P INC INC ROPHYLAXI S /DX 1ST TO 1 HR BLOOD 32523 PAMELA RAMACHANDRANON COUNT 0 [facility] COMPLETE INC INC AUTO&AUTO DIFRNTL WBC CT PELVIS 75778 [facility] SANTIAG[facility] W/O 0 [facility] CONTRAST INC INC MATERIAL 3D 75164 [facility] RENDERING 0 [facility] INC INC W/INTERP& [place] [address] [facility] S[facility] ABDOMEN 0 [facility] W/O INC INC CONTRAST MATERIAL URNLS DIP 19242 PAMELA PAMELA 0 [facility] STICK/TAB INC INC LET REAGENT AUTO MICROSCOP Y COMPREHEN 27046 PAMELA RAMACHANDRANON SIVE 0 [facility] [place] [address] PAMELA SANTIAGO AMYLASE 0 [place] [address] PAMELA SANTIAGO LIPASE 0 [facility] INC INC URINE 62236 PAM[facility]A SANTIAGO 0 [facility] TEST INC INC VISUAL COLOR CMPRSN METHS CONTRACEP S4993 JOSEY [facility] TIVE 0 [facility] [place] CONTROL T T URNLS DIP 76704 P[facility] RAMACHANDRANON 0 [facility] STICK/TAB INC INC [place] [address] P[facility] SANTIAG[facility] STREPTOCO 0 [facility] CCUS INC INC GROUP A URINE 46027 [facility] SANTIAGO 0 [facility] TEST INC INC VISUAL COLOR CMPRSN METHS URINE 46190 PAMELA SANTIAGO 9 [facility] TEST INC INC VISUAL COLOR CMPRSN METHS URNLS DIP 41264 [facility] SANTIAGO 9 [facility] STICK/TAB INC INC LET REAGENT AUTO MICROSCOP Y RADIOLOGI 89779 [facility] S[facility] C EXAM 9 [facility] CHEST 2 INC INC VIEWS FRONTAL&L ATERAL CONTRACEP S4993 [facility] TIVE 9 [facility]ALTH [facility] ACCT DEPARTMEN CONTROL T IAADI 73332 [facility] SANTIAGO INFLUENZA 9 [facility] B VIRUS INC INC IAADI 71809 [facility] SANTIAG[facility] INFFLUENZ 9 [facility] A A VIRUS INC INC RADIOLOGI 38176 [facility]A SANTIAGO C EXAM 9 [facility] CHEST 2 INC INC VIEWS FRONTAL&L ATERAL URINE 41513 [facility] SANTIAGO 9 [facility] TEST INC INC VISUAL COLOR CMPRSN METHS CONTRACEP S4993 [facility] TIVE 9 [facility]ALTH [facility] T FRAMES V2020 MARQUIS OLVERA, PURCHASES 9 RUFINA Lopez OD DETERMINA 89647 MARQUIS OLVERA TION 9 RUFINA Lopez REFRACTIV OD E STATE 1 VISN V2104 MARQUIS OLVERA, PLANO-+/- 9 RUFINA Lopez 4.00D OD SPHER 2.12-4.00 D CYL EA FITTING 86612 MARQUIS OLVERA, SPECTACLE 9 RUFINA Lopez S XCPT OD APHAKIA MONOFOCAL OPHTH 42890 MARQUIS OLVERA, MEDICAL 9 RUFINA Lopez XM&EVAL OD COMPRHNSV ESTAB PT 1/> CONTRACEP S4993 [facility]/CO DEBO CO TIVE 9 [facility]ALTH [facility] ACCT T CONTROL URINE 61557 PAMELA RAMACHANDRANON 9 [facility] TEST INC INC VISUAL COLOR CMPRSN METHS RADEX 50561 [place] ANGELICA, WRIST 9 MEDICAL [facility] COMPLETE IMAGING MINIMUM 3 ASSOCIATE VIEWS S RADEX 71883 [facility] ANGELICA, FINGR 9 MEDICAL [facility] MINIMUM 2 IMAGING VIEWS ASSOCIATE S US BREAST 72351 [facility] SANT[facility] REAL 9 [facility] TIME INC INC W/IMAGE DOCUMENTA TION PRESSURIZ 17731 [facility]A SANTIAGO ED/NONPRE 8 [facility] SSURIZED INC INC INHALATIO N TREATMENT BRNCDILAT 78007 NIC KENDALL 8 [facility] PRE&POST- PROF SERV BRNCDILAT ADMN FUNCTIONA 15455 PAMELA SANTIAGO L 8 [facility] RESIDUAL INC INC CAPACITY OR RESIDUAL VOLUME DETER 66899 PAMELA SANTIAGO MALDISTRI 8 [facility] BJ OF INC INC INSPIRED GAS N WSHOT CURVE DETER 55574 IRISH KENDALL 8 [facility] VOL [place] [address] [facility] FAB, ABDOMINAL 8 MEDICAL JASMIN P REAL IMAGING TIME ASSOCIATE W/IMAGE S LIMITED RADEX 07025 [facility] ANGELICA, UPPER GI 8 MEDICAL [facility] W/WO IMAGING GLUCAGON/ ASSOCIATE DELAY S IMAGES W/KUB RADIOLOGI 53444 [facility] ANGELICA C EXAM 8 MEDICAL [facility] CHEST 2 IMAGING VIEWS ASSOCIATE FRONTAL&L S ATERAL ECG 54123 PAMELA EWING, ROUTINE 8 [facility] W/LEAST PROF SERV 12 LDS I&R ONLY ECG 29609 PAMELA SANTIAGO ROUTINE 8 [facility] ECG INC INC W/LEAST 12 LDS TRCG ONLY W/O I&R FITTING 28249 MARQUIS OLVERA, RONALDO 8 RUFINA Lopez S XCPT OD APHAKIA MONOFOCAL OPHTH 01778 MARQUIS OLVERA, MEDICAL 8 RUFINA Lopez XM&EVAL OD COMPRHNSV ESTAB PT 1/> DETERMINA 01043 ROLY ARVIZU 8 RUFINA SAULO T REFRACTIV OD E STATE FRAMES V2020 MARQUIS OLVERA, PURCHASES 8 RUFINA VERNON T OD 1 VISN V2103 MARQUIS OLVERA, PLANO 8 RUFINA VERNON T TO+/-4.00 OD D SPHER 0.12-2.00 D CYL EA URINE 81392 PAMELA PAMELA 8 [facility] HOSP TEST INC INC VISUAL COLOR CMPRSN METHS BLOOD 10847 PAMELA SANTIAGO COUNT 8 [facility] COMPLETE INC INC AUTO&[place] [address] PAMELA SANTIAGO TROPONIN 8 [facility] HOSP QUANTITAT INC INC SHILPI RADIOLOGI 49444 Bhavana CRUMP EXAM 8 MEDICAL [facility] CHEST 2 IMAGING VIEWS ASSOCIATE FRONTAL&L S ATERAL CT THORAX 38520 PAMELA SANTIAGO W/O 8 [facility] HOSP CONTRAST INC INC MATERIAL 3D 68243 BRANDY CRUMP 8 MEDICAL [facility] IMAGING W/INTERP& ASSOCIATE POSTPROC S DIFF WORK STATION CREATINE 69320 PAMELA SANTIAGO KINASE MB 8 [facility] FRACTION INC INC ONLY BASIC 82039 PAMELA SANTIAGO METABOLIC 8 [facility] PANEL INC INC CALCIUM TOTAL CREATINE 64938 PAMELA SANTIAGO KINASE 8 [facility] TOTAL INC INC FIBRIN 00226 PAMELA SANTIAGO DGRADJ 8 [facility] HOSP PRODUCTS INC INC D-DIMER QUAL/SEMI VENICE SEDIMENTA 10116 PAMELA SANTIAGO TION RATE 8 [facility] HOSP RBC INC INC NON-AUTOM ATED Encounters Encounter Start End Date Code Location Performer Type Date PERIODIC 92491 ABIGAIL HAYES PREVENTIV 6 6 [facility] PATIENT DEPT. DEPT. 18-39 YRS EMERGENCY 55734 [facility] 6 6 ELISA JEA DEPARTMEN EMERGENCY T VISIT PHYS HIGH/URGE NT SEVERITY OFFICE 74735 JOSEY DOWLING OUTPATIEN 2 2 CO CO T VISIT [facility] 10 DEPARTME DEPARTME MINUTES OFFICE 69804 GAYATHRI TRINH OUTPATIEN 2 2 MARSHALL MARSHALL T VISIT 15 MINUTES OFFICE 49447 AWOSIARETHA AWOSIKA OUTPATIEN 2 2 ABEL ABEL T NEW 30 MINUTES OFFICE 00174 JOSEY HATHAWAYPATIEN 1 1 CO CO T VISIT HEALTH HEALTH 10 DEPARTTN DEPARTTN MINUTES EMERGENCY 46217 ARIN GRIFFITH 1 1 EMERGENCY DEPARTMEN SERVICES T VISIT HIGH/URGE NT SEVERITY HOSPITAL [facility] - 1 1 [facility] OUTPATIEN INC T PERIODIC 14840 JOSEY DOWLING PREVENTIV 1 1 CO CO E MED EST HEALTH HEALTH PATIENT DEPARTTN DEPARTTN 18-39 YRS OFFICE 27858 GAYATHRI MARTINEN 1 1 MARSHALL MARSHALL T VISIT 15 MINUTES EMERGENCY 30873 ARIN CRUZ 1 [facility] [place] [facility] T VISIT HIGH/URGE NT SEVERITY HOSPITAL PAMELA - 1 1 [facility] OUTPATIEN INC T EMERGENCY 03210 PAMELA 1 1 [facility] DEPARTMEN INC T VISIT LOW/MODER SEVERITY OFFICE 49416 JOSEY VELÁZQUEZ 1 1 CO CO T VISIT HEALTH HEALTH 10 [facility] DEPARTTN MINUTES OFFICE 74741 JOSEY VELÁZQUEZ 1 1 CO CO T VISIT HEALTH HEALTH 10 [facility] MINUTES OFFICE 30425 [facility] PETTEY CONSULTAT 1 1 PHYSICIAN SANDRA ALFARO NEW/ESTAB PATIENT 60 MIN OFFICE 25229 GAYATHRI VELÁZQUEZ 1 1 MARSHALL MARSHALL T VISIT 15 MINUTES HOSPITAL P[facility]ELA - 1 1 [facility] OUTPATIEN INC T EMERGENCY 01794 PAMELA 1 1 [facility] DEPARTMEN INC T VISIT LOW/MODER SEVERITY EMERGENCY 80472 ARIN BRIGGS 1 1 EMERGENCY DEPARTMEN SERVICES T VISIT HIGH/URGE NT SEVERITY PERIODIC 98235 JOSEY DOWLING PREVENTIV 0 0 CO CO E [facility] PATIENT DEPARTTN DEPARTTN 12-17YRS EMERGENCY 65326 PAMELA 0 0 [facility] DEPARTMEN INC T VISIT HIGH/URGE NT SEVERITY HOSPITAL PAMELA - 0 0 [facility] OUTPATIEN INC T EMERGENCY 39131 ARIN LEDBETTER, DEPT 0 0 EMERGENCY [facility] VISIT SERVICES HIGH SEVERITY& ASSOCIATE THREAT S [facility] OFFICE 21881 GAYATHRI TRINH OUTPATIEN 0 0 SUNDEEP W SUNDEEP W T VISIT 15 MINUTES OFFICE 09768 GAYATHRI TRINH OUTPATIEN 0 0 SUNDEEP W SUNDEEP W T VISIT 15 MINUTES OFFICE 42132 JOSEY DOWLING OUTPATIEN 0 0 CO CO T [facility]IT [facility] T T OFFICE 34816 GAYATHRI TRINH OUTPATIEN 0 0 SUNDEEP W SUNDEEP W T VISIT 15 MINUTES EMERGENCY 99575 ARIN LEDBETTER, 0 0 EMERGENCY [facility] SERVICES T VISIT HIGH/URGE ASSOCIATE NT S SEVERITY EMERGENCY 51776 PAMELA 0 0 [facility] DEPARTMEN INC T VISIT MODERATE SEVERITY HOSPITAL P[facility] 0 [facility] OUT[facility]EN [facility] T HOSPITAL [facility] - 0 0 [facility] OUT[facility]IEN [facility] T EMERGENCY 03606 ARIN RENTERIA 0 0 EMERGENCY [facility] SERVICES SHANELLE T VISIT HIGH/URGE ASSOCIATE NT S SEVERITY EMERGENCY 35854 ARIN LEDBETTER, 9 9 EMERGENCY [facility] SERVICES T VISIT HIGH/URGE ASSOCIATE NT S SEVERITY EMERGENCY 55497 [facility] 9 9 [facility] DEPARTMEN INC T VISIT LOW/MODER SEVERITY [facility] - 9 9 [facility] OUTPATIEN INC T OFFICE 97596 [facility] DOWL[facility] OUTPATIEN 9 9 HEALTH CO T VISIT [facility] 10 BANK ACCT DEPARTMEN MINUTES T OFFICE 21961 RYAN DAVIS OUTPATIEN 9 9 NAIMA A NAIMA A T VISIT 15 MINUTES [facility] - 9 9 [facility] OUTPATIEN INC T EMERGENCY 53671 ARIN LEDBETTER, 9 9 EMERGENCY [facility] S DEPARTMEN SERVICES T VISIT HIGH/URGE ASSOCIATE NT S SEVERITY EMERGENCY 76734 [facility] 9 9 [facility] DEPARTMEN INC T VISIT MODERATE SEVERITY PERIODIC 72261 DHS/CO JOSEY PREVENTIV 9 9 HEALTH CO E MED EST [facility] PATIENT [facility] ACCT DEPARTMEN - T OFFICE 78458 DHS/CO DEBO CO OUTPATIEN 9 9 HEALTH HEALTH T NEW 10 [facility] DEPARTMEN MINUTES BANK ACCT T OFFICE 44946 RYAN DAVIS OUTPATIEN 9 9 NAIMA A NAIMA A T VISIT 15 MINUTES EMERGENCY 54800 [facility] 9 9 [facility] DEPARTMEN INC T VISIT LOW/MODER SEVERITY [facility] - 9 9 [facility] OUTPATIEN INC T EMERGENCY 57844 ARIN HATFIELD, 9 9 EMERGENCY [place] DEPARTMEN SERVICES O T VISIT MODERATE ASSOCIATE SEVERITY S [facility] - 9 9 [facility] OUTPATIEN INC T OFFICE 93285 [facility]/CO JOSEY OUTPATIEN 9 9 HEALTH CO T VISIT [facility] 15 BANK ACCT DEPARTMEN MINUTES T OFFICE 46576 RYAN DAVIS OUTPATIEN 9 9 NAIMA A NAIMA A T VISIT 15 MINUTES OFFICE 45691 RYAN DAVIS OUTPATIEN 9 9 NAIMA A NAIMA A T VISIT 15 MINUTES OFFICE 40999 MELANIA CLAIRE 8 8 [facility] T VISIT INTERNAL 15 MED MINUTES [facility] - 8 8 [facility] OUTPATIEN INC T OFFICE 10576 ZULMA MELANIA BURGESS 8 8 [facility] T VISIT INTERNAL 15 MED MINUTES [facility] - 8 8 [facility] OUTPATIEN INC T OFFICE 85849 RYAN DAVIS OUTPATIEN 8 8 NAIMA A NAIMA A T VISIT 15 MINUTES OFFICE 27166 RYNA DAVIS OUTPATIEN 8 8 NAIMA A NAIMA A T VISIT 15 MINUTES [facility] - 8 8 [facility] OUTPATIEN INC T OFFICE 86879 RYAN DAVIS OUTPATIEN 8 8 NAIMA A NAIMA A T VISIT 15 MINUTES OFFICE 75196 RYAN DAVIS OUTPATIEN 8 8 NAIMA A NAIMA A T VISIT 15 MINUTES OFFICE 49681 RYAN DAVIS OUTPATIEN 8 8 NAIMA A NAIMA A T VISIT 15 MINUTES OFFICE 22494 RYAN DAVIS OUTPATIEN 8 8 NAIMA A NAIMA A T VISIT 15 MINUTES [facility] - 8 8 [facility] OUTPATIEN INC T EMERGENCY 07545 P[facility]A 8 8 [facility] MODERATE SEVERITY
--- OUTSIDE RECORDS SUMMARY | 2017-03-14 08:32 | External Medical Summary Rpt ---
Author Author , Organization [employer] Address Unknown Phone Unavailable Care Team Providers Care Oracle Ebs Developer Name Role Phone GAYATHRI COWAN Unavailable Unavailable MARSHALL GAYATHRI MARSHALL, ARNOLD Unavailable Unavailable MARSHALL SUNDEEP TRINH W, Unavailable Unavailable ARNTYREE, SUNDEEP W AWOSIKA ABEL, AWOSIKA Unavailable Unavailable ABEL AWOSIKA ABEL, AWOSIKA Unavailable Unavailable ABEL [facility] Unavailable Unavailable HEALTH C, [facility] ANGELICA ROBERT, Unavailable Unavailable ANGELICA ROBERT CHARO DOMINGUEZLAS, Unavailable Unavailable CHARO DOMINGUEZLAS [facility], Unavailable [facility]available [facility] Unavailable Unavailable [facility] [place] [facility] [place] Unavailable Unavailable [facility], Unavailable Unavailable [facility] Unavailable Unavailable DEPT., [facility] Unavailable Unavailable DEPT., [facility] NITIN LEDBETTER, Unavailable Unavailable NITIN LEDBETTER GRAY ROB Unavailable Unavailable [facility] Un[facility], [facility] KEVIN BURGESS HARVEY, Unavailable Unavailable KEVIN [facility], Unavailable Unavailable [facility] Un[facility] Unavailable [facility], [facility] ALHAJI EWING, Unavailable Unavailable ALHAJI EWING [facility] Unavailable Unavailable SERVICES, [facility] Unavailable Unavailable DEPARTMENT, [facility] JASMIN SANON, Unavailable Unavailable JASMIN SANON JOE A, Unavailable Unavailable NAIMA DAVIS PETTEY Unavailable Unavailable ASNDRA RADHA JEA RADHA Unavailable Unavailable JEA [id number], Unavailable Unavailable [id number] Unavailable Unavailable DEPARTCO, [facility] Unavailable Unavailable DEPARTCO, [facility]ME [facility] Unavailable Unavailable DEPARTMENT, [facility] DE[facility] MAY SAEED Unavailable Unavailable SAULO KHAN, Unavailable Unavailable SAULO OLVERA SOKAN BAB, SOKAN BAB Unavailable Unavailable SOKAN, CHEKO O, Unavailable Unavailable SOKAN, CHEKO O [facility] Unavailable Unavailable [facility], [facility] SHANELLE RENTERIA III, Unavailable Unavailable SHANELLE RETNERIA III Purpose Continuity of Care Document - 10-31-2007 through 2016 Problems Code Diagnosis DOS Provider Status [id number] ENCOUNTER 08-17-2016 [facility] SENIOR 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 ABNORMAL FIND Z3044 ENCOUNTR 08-17-2016 [facility] CONTRACEPT O900 DISRUPTION 04-30-2016 [facility] DELIVERY PHYS WOUND 2662 OTHER 12-07-2011 [facility] B-COMPLEX CO HEALTH DEFICIENCIE DEPARTME S V2541 SURVEILLANC 12-07-2011 [facility] E PREV CO HEALTH PRESCRIBED DEPARTME CONTRACEPT PILL 5999 UNSPECIFIED 11-04-2011 GAYATHRI OLIVARES DISORDER OF URETHRA&URI NARY TRACT 62399 RETINAL 11-02-2011 AWOSIKA ABEL NERVE FIBER BUNDLE DEFECTS 3671 MYOPIA 11-02-2011 AWOSIKA ABEL 94336 OTHER 11-02-2011 AWOSIKA ABEL CHRONIC ALLERGIC CONJUNCTIVI TIS 6264 IRREGULAR 08-04-2011 [facility] MENSTRUAL NC HEALTH CYCLE DEPARTME 66433 HORDEOLUM 06-29-2011 [facility]NUM [facility] 72279 PAINFUL 06-29-2011 [facility]PIRATION [facility] 55034 OTHER CHEST 06-29-2011 [facility] V7231 ROUTINE 06-27-2011 [facility] GYNECOLOGIC NC HEALTH AL DEPARTME EXAMINATION 4619 ACUTE 04-11-2011 ARNOLD MARSHALL SINUSITIS, UNSPECIFIED 8470 NECK SPRAIN 04-02-2011 [facility] STRAIN [facility]ERGENCY SERVICES 41879 CONTUSION 12-10-2010 [facility] 80747 PAIN IN 12-09-2010 ARNTYREE MARSHALL JOINT, LOWER LEG 8449 SPRAIN&STRA 12-02-2010 [facility] IN OF [facility] UNSPECIFIED INC SITE OF KNEE&LEG 16307 REGULAR 08-20-2010 [facility] 69343 ABDOMINAL 05-12-2010 [place] [facility], MEDICAL UNSPECIFIED IMAGING ASS SITE 49872 ABDOMINAL 05-12-2010 [facility], EMERGENCY GENERALIZED SERVICES ASSOCIATES 47430 UNSPECIFIED 04-27-2010 ARNOLD, INFECTIVE SUNDEEP W OTITIS EXTERNA 4660 ACUTE 02-20-2010 ARNOLD, BRONCHITIS SUNDEEP W 89355 ASTHMA 10-25-2009 [facility] UNSPECIFIED [facility]ERGENCY WITH SERVICES EXACERBATIO ASSOCIATES N 06979 ASTHMA, 09-17-2009 [facility] UNSPECIFIED EMERGENCY , SERVICES UNSPECIFIED ASSOCIATES STATUS 7862 COUGH 09-17-2009 [facility] 5110 PLEURISY 07-10-2009 [facility] WITHOUT EMERGENCY MENTION SERVICES EFFUS/CURRE ASSOCIATES NT TB 514 PULMONARY 07-10-2009 [place] CONGE[facility]ION [facility] HYPOSTASIS ASSOCIATES V720 EXAMINATION 06-04-2009 MARQUIS Valdez OF EYES RUFINA OD AND VISION V2503 ENCOUNTER 05-22-2009 [facility] EMERGENCY HEALTH CONTRACEPT CENTRAL CNSL&PRESCR BANK ACCT IPTION 9595 INJURY 05-01-2009 RYAN, OTHER AND NAIMA Alves UNSPECIFIED FINGER 11011 PAIN IN 04-29-2009 [facility] JOINT, EMERGENCY FOREARM SERVICES ASSOCIATES 17961 OTHER HAND 04-29-2009 [place] SPRAIN AND [facility]ICAL STRAIN [facility] E8498 OTHER 04-29-[address] [place] [address] OF IMAGING OCCURRENCE ASSOCIATES E9170 STRIKE 04-29-2009 [place] AGNST/STRUC MEDICAL K ACC IMAGING SPORTS W/O ASSOCIATES SUBSQT FALL 70407 LUMP OR 01-13-2009 [place] MASS IN MEDICAL BREAST IMAG[facility] 4779 ALLERGIC 12-27-2008 RYAN, RHINITIS NAIMA A CAUSE UNSPECIFIED 4640 ACUTE 12-10-2008 RYAN LARYNGITIS NAIMA A 43114 COUGH 07-16-2008 [facility] ASTHMA INTERNAL MED 84836 OTHER 07-07-2008 [place] [facility] AND [facility] [place] [address] UNSPECIFIED 07-02-2008 [facility] [place] [facility]IR[facility] INTERNAL MED ABNORMALITY 97419 ABDOMINAL 06-19-2008 [place] PAIN, MEDICAL EPIGASTRIC IMAGING ASSOCIATES 44892 CHEST PAIN 06-14-2008 [place] UNSPECIFIED [facility] PROF SERV 5118 PLEURISY 10-31-2007 [place] W/OTH SPEC [facility] FORMS EFFUS INC NO TUBERCULOUS 7931 NONSPEC 10-31-2007 [place] FIND RAD MEDICAL OTH EXAM IMAGING BODY STRUCT [facility] LUNG FIELD Medications Na ND Rx Da Fi Fi [...] 05 1. 28 00 KR Ac VA 2 -1 00 00 OG ti RI 20 0- 2- 0 06 ER ve NG 27 20 20 51 30 17 17 96 PH VA 3 84 AR GI M NA L- L 76 RI 7 NG VE 00 03 04 18 30 00 KR Ac NT 17 -3 -2 .0 00 OG ti OL 30 1- - 06 ER ve IN 68 20 20 52 22 17 17 50 PH HF 0 05 AR A M 90 L- 76 MC 7 G IN MILLER R IA 65 03 04 30 30 00 KR Ac UO 86 -3 -2 .0 00 OG ti XE 20 1- 1- 06 ER ve TI 19 20 20 52 NE 29 17 17 50 PH 9 06 AR HC M L L- 10 76 7 MG CA PS UL E NU 00 03 04 1. 28 00 KR Ac VA 1 00 00 OG ti RI 20 2- [...] MC 7 G IN MILLER LE R FL 65 03 03 30 30 00 KR [...] 7- 3- 00 SI 03 LD ve TX 02 20 20 DE ED 20 10 [...] 7- 7- 00 SI 03 LD ve TX 02 20 20 DE ED 20 10 [...] 3- 5- 00 SI 19 LD ve TX 02 20 20 DE ED 20 10 [...] 8- 7- 00 SI 82 Av ve TX 50 20 20 DE ai AM 91 10 10 la 8 PH bl HB AR e R MA 40 CY MG OF TA CY BL NT ET HI AN A AM 00 07 07 0 21 7 EA 18 GA Ac OX 78 -2 -[address] 52 IN ti IC 12 9- 9- 00 SI 06 EY ve IL 61 20 20 DE LI 30 10 10 WV N 5 PH CH 50 AR AE [...] 8- 4- 00 SI 82 Av ve TX 00 20 20 DE ai AM 70 [...] 0 7. 10 EA 18 AR Ac TX 06 -1 -[address] 33 NO [...] 8- 6- 00 SI 82 Av ve TX 00 20 20 DE ai AM 70 [...] 2- 2- 00 SI 97 Av ve TX 34 20 20 DE ai AM 40 10 10 la 5 PH bl HB AR e R MA 40 CY MG OF TA CY BL NT ET HI AN A ME 00 05 05 0 21 6 EA 17 GA Ac TH 78 -0 -[address] 43 IN ti YL 15 2- 2- 00 SI 20 EY ve TX 02 20 20 DE ED 20 10 10 WV NI 7 PH CH SO AR AE LO MA L NE CY S 4 OF MG CY DO NT SE HI PK AN A AZ 00 05 05 0 6. 5 EA 17 GA Ac IT 09 -0 -[address] 43 IN ti HR 37 2- 2- 0 SI 21 EY ve OM 14 20 20 DE YC 61 10 10 WV IN 8 PH CH AR AE 25 [...] 2- 3- 00 SI 97 Av ve TX 34 20 20 DE ai AM 40 [...] 2- 2- 00 S 00 Av ve TX 34 20 20 PH 9 ai AM [...] 3- 1- 00 SI 19 LD ve TX 02 20 20 DE ED 20 10 10 RI NI 7 PH CH SO AR AR LO MA D NE CY W 4 OF MG CY NT DO HI SE AN PK A CI 55 02 02 00 15 15 DE 63 No Ac TA 11 -0 -1 .0 AN 90 t ti LO 10 2- 1- 00 S 86 Av ve TX 34 20 20 PH 0 ai AM 40 10 10 AR la 5 MA bl HB CY e R 40 MG TA BL ET AZ 00 01 02 00 6. 5 EA 16 AR Ac IT 09 -2 -[address] 08 NO ti HR 37 3- 1- 0 SI 18 LD ve OM 14 20 20 DE YC 61 10 10 RI IN 8 PH CH AR AR 25 MA D 0 CY W MG OF TA CY BL NT ET HI AN A LO 45 01 02 [...] NT HI AN A AZ 00 01 01 [...] CY BL NT ET HI AN A TX 00 01 01 00 10 5 EA [...] 8- 4- 00 S 35 Av ve TX 34 20 20 PH 4 ai AM [...] 20 AI YC 00 09 09 D WV IN 1 PH CH AR AE 25 M L 0 #3 S MG 93 8 TA BL ET ME 00 12 12 00 21 6 RI 81 GA Ac TH 60 -0 -1 .0 TE 16 IN ti YL 34 3- 7- 00 42 EY ve TX 59 20 20 AI ED 31 09 09 D WV NI 5 PH CH SO AR AE LO M L NE #3 S 4 93 8 MG DO SE PK CI 55 12 12 00 15 15 DE 63 No Ac TA 11 -0 -1 .0 AN 88 t ti LO 10 8- 7- 00 S 35 Av ve TX 34 20 20 PH 4 ai AM [...] 0- 9- 00 S 05 Av ve TX 34 20 20 PH 3 ai AM [...] ET NT HI AN A ME 00 09 10 00 21 6 EA 14 GA Ac TH 78 -2 -[address] 43 IN ti YL 15 6- 8- 00 SI 34 EY ve TX 02 20 20 DE ED 20 09 09 WV NI 7 PH CH SO AR AE LO MA L NE CY S 4 OF MG CY NT DO HI SE AN PK A AZ 00 09 10 00 6. 6 EA 14 GA Ac IT 09 -2 -[address] 43 IN ti HR 37 6- 8- 0 SI 35 EY ve OM 14 20 20 DE YC 61 09 09 WV IN 8 PH CH AR AE 25 MA L 0 CY S MG OF TA CY BL NT ET HI AN A LO 60 07 09 02 30 [...] 20 DE S LI 30 09 09 JAMNI N 5 PH E 50 AR A [...] ET NT HI AN A 59 10 07 01 8. 25 EA 99 MILLER Ac 31 -0 -[address] 69 RV ti 00 1- 2- 0 SI 51 EY ve 57 20 20 DE 92 08 09 JAMIN 0 PH DI AR MA CY OF CY NT HI AN A CABALLERO 53 06 [...] NT TA HI BL AN ET A LO 60 04 06 02 30 [...] CY OF CY NT HI AN A AZ 00 01 [...] BL CY ET NT HI AN A Procedures Procedure DOS Code Location Performer Comment DETERMINA 63722 AWOSIKA AWOSIKA TION 2 ABEL ABEL REFRACTIV E STATE RX&FITG 77953 AWOSIKA AWOSIKA C-LENS 2 ABEL ABEL SUPVJ CRNL LENS OU XCPT APHK FUNDUS 63627 TOMMY LOZANOKA PHOTOGRAP 2 ABEL ABEL HY W/INTERPR ETATION & REPORT CONTRACEP S4993 [facility] TIVE 1 [facility] HEALTH DEPARTME DEPARTME CONTROL URINE 65820 [facility] SANTIAGO 1 [facility] TEST INC INC VISUAL COLOR CMPRSN METHS URNLS DIP 67723 PAMELA SANTIAGO 1 [facility] STICK/TAB INC INC LET REAGENT AUTO MICROSCOP Y CULTURE 00294 [facility] SANT[facility]AG[facility] BACTERIAL 1 [facility] INC [place] [address] [facility] SANTIAG[facility] INFUSION 1 [facility] THERAPY/P INC INC ROPHYLAXI S /DX 1ST TO 1 HR RADEX 12030 [place] ANGELICA RIBS UNI 1 MEDICAL ROBERT W/POSTERO IMAGING ANT CH ASS MINIMUM 3 VIEWS RADIOLOGI 98664 [facility] GRIGSBYANGELICA C EXAM 1 MEDICAL ROBERT CHEST 2 IMAGING VIEWS ASS FRONTAL&L ATERAL BLOOD 89850 [facility] SANTIAGO COUNT 1 [facility] COMPLETE INC INC AUTO&AUTO DIFRNTL WBC COMPREHEN 59329 [facility] SIVE 1 [facility] [address] [facility] LIPASE 1 [facility] INC INC IADNA 19725 JO[facility]Y [facility] NEISSERIA 1 [facility] AE AMPLIFIED PROBE TQ CONTRACEP S4993 JOSEY BLANCOON TIVE 1 CO [facility] CONTROL IADNA 69450 JOSEY DOW[facility] CHLAMYDIA 1 [facility] TRACHOMAT [facility] IS AMPLIFIED PROBE TQ URINE 32285 [facility] SANTIAGO 1 [facility] TEST INC INC VISUAL COLOR CMPRSN METHS RADIOLOGI 28482 YOLIEY ANGELICA C 1 MEDICAL ROBERT EXAMINATI IMAGING ON NECK ASS SOFT TISSUE CONTRACEP S4993 JOSEY DOWLING TIVE 1 CO [facility] CONTROL CONTRACEP S4993 JOSEY DOWLING TIVE 1 CO [facility] CONTROL RADIOLOGI 62706 YOLIEY ANGELICA C 1 MEDICAL ROBERT EXAMINATI IMAGING ON KNEE 3 ASS VIEWS KNEE L1830 [facility] ORTHOSIS 1 IMMOBLIZE R CANVAS LONGTUDNL PREFAB 1 VISN V2104 [facility] PLANO-+/- 0 ASSOCIATE DEEJAY 4.00D S SPHER 2.12-4.00 D CYL EA OPHTH 19419 [facility] MEDICAL 0 ASSOCIATE VILLALBA XM&EVAL Jennifer COMPRHNSV ESTAB PT 1/> FITTING 94996 [facility] SPECTACLE 0 ASSOCIATE DEEJAY Rodriguez XCPT S APHAKIA MONOFOCAL FRAMES V2020 [facility] PURCHASES 0 ASSOCIATE DEEJAY Rodriguez DETERMINA 60868 [facility] TION 0 ASSOCIATE VILLALBA REFRACTIV S E STATE CONTRACEP S4993 JO[facility] D[facility] TIVE 0 CO [facility] CONTROL IADNA 37219 JOSEY DOW[facility] NEISSERIA 0 CO [facility] AE AMPLIFIED PROBE TQ IADNA 76032 JOSEY D[facility] CHLAMYDIA 0 CO [facility] TRACHOMAT [facility] [place] [address] PAM[facility]A SANTIAGO INFUSION 0 [facility] THERAPY/P INC INC ROPHYLAXI S /DX 1ST TO [address] PELVIS 10958 YEE OLIVOUTCHER W/O 0 MEDICAL ROBERT CONTRAST IMAGING MATERIAL ASS BLOOD 61108 [facility] SANTIAGO COUNT 0 [facility] COMPLETE INC INC AUTO&AUTO DIFRNTL WBC 3D 64694 YEE OLIVOUTCHER RENDERING 0 MEDICAL ROBERT IMAGING W/INTERP& ASS POSTPROC DIFF WORK STATION URNLS DIP 07254 [facility]ANT[facility]AG[facility] 0 [facility] STICK/TAB INC [place] [address] [facility] GRIGSBYANGELICA ABDOMEN 0 MEDICAL ROBERT W/O IMAGING CONTRAST ASS MATERIAL URINE 84050 [facility]A SANTIAGO 0 [facility] TEST INC [place] [address] PAMELA SANTIAGO AMYLASE 0 [facility] INC INC COMPREHEN 68596 P[facility]A SANTIAGO SIVE 0 [facility] [address] [facility]AM[facility]A SANTIAGO LIPASE 0 [facility] INC INC CONTRACEP S4993 JOSEY D[facility] TIVE 0 [facility] CONTROL T T URINE 64552 [facility] SANTIAGO 0 [facility] TEST INC [place] [address] [facility] SANTIAG[facility] STREPTOCO 0 [facility] CCUS INC INC GROUP A URNLS DIP 20620 [facility] SANTIAGO 0 [facility] STICK/TAB INC INC LET REAGENT AUTO MICROSCOP Y URNLS DIP 34498 [facility] SANTIAGO 9 [facility] STICK/TAB INC INC LET REAGENT AUTO MICROSCOP Y URINE 41725 [facility] SANTIAGO 9 [facility] TEST INC INC VISUAL COLOR CMPRSN METHS RADIOLOGI 91739 [place] Bhavana DOMINGUEZ EXAM 9 MEDICAL SHAHAB CHEST 2 IMAGING VIEWS ASSOCIATE FRONTAL&L S ATERAL CONTRACEP S4993 [facility] TIVE 9 [facility] ACCT DEPARTMEN CONTROL T RADIOLOGI 01417 [place] Bhavana SANON EXAM 9 MEDICAL JASMIN P CHEST 2 IMAGING VIEWS ASSOCIATE FRONTAL&L S ATERAL IAADI 93267 [facility] SANTIAG[facility] INFLUENZA 9 [facility] B VIRUS INC INC IAADI 71471 [facility] SANTIAG[facility] INFFLUENZ 9 [facility] A A VIRUS INC INC URINE 00728 [facility] SANTIAGO 9 [facility] TEST INC INC VISUAL COLOR CMPRSN METHS CONTRACEP S4993 [facility] TIVE 9 [facility] ACCT DEPARTMEN CONTROL T DETERMINA 09598 MARQUIS OLVERA TIGAUTAM 9 RUFINA DUDLEYMARCOS Lopez REFRACTIV OD E STATE FRAMES V2020 MARQUIS OLVERA, PURCHASES 9 RUFINA DUDLEYMARCOS Lopez OD FITTING 76164 MARQUIS OLVERA, SPECTACLE 9 RUFINA DUDLEYMARCOS Lopez S XCPT OD APHAKIA MONOFOCAL OPHTH 83993 MARQUIS OLVERA, MEDICAL 9 RUFINA Lopez XM&EVAL OD COMPRHNSV ESTAB PT 1/> 1 VISN V2104 MARQUIS OLVERA, PLANO-+/- 9 RUFINA SAULO T 4.00D OD SPHER 2.12-4.00 D CYL EA CONTRACEP S4993 DHS/CO DEBO CO TIVE 9 HEALTH HEALTH [facility]ILL[facility] FOR [facility] ACCT T CONTROL RADEX 18324 [facility] SANTIAG[facility] FINGR 9 [facility] MINIMUM 2 INC INC VIEWS RADEX 25344 [facility] SANTIAG[facility] WRIST 9 [facility] COMPLETE INC INC MINIMUM 3 VIEWS URINE 32337 [facility] SANTIAGO 9 [facility] TEST INC INC VISUAL COLOR CMPRSN METHS US BREAST 11372 [facility] S[facility] REAL 9 [facility] TIME INC INC W/IMAGE DOCUMENTA TIGAUTAM PRESSURIZ 14348 [facility] SANTIAG[facility] ED/NONPRE 8 [facility] SSURIZED INC INC INHALATIO N TREATMENT BRNCDILAT 88836 [facility] RSPSE 8 [facility] SPMTRY INC INC PRE&POST- BRNCDILAT ADMN FUNCTIONA 28840 [facility] SANTIAGO L 8 [facility] RESIDUAL INC INC CAPACITY OR RESIDUAL VOLUME DETER 54296 [facility] SANTIAG[facility] MALDISTRI 8 [facility] BJ OF INC INC INSPIRED GAS N WSHOT CURVE DETER 49193 [facility] SANTIAG[facility] AIRWY 8 [facility] CLOSING INC INC VOL [address] [place] [address] [place] FAB, ABDOMINAL 8 MEDICAL JASMIN P REAL IMAGING TIME ASSOCIATE W/IMAGE S LIMITED RADEX 76186 [place] ANGELICA, UPPER GI 8 MEDICAL SHAHAB W/WO IMAGING GLUCAGON/ ASSOCIATE DELAY S IMAGES W/KUB ECG 79332 [facility] SANTIAG[facility] ROUTINE 8 [facility] ECG INC INC W/LEAST 12 LDS TRCG ONLY W/O I&R RADIOLOGI 49563 [place] ANGELICA, C EXAM 8 MEDICAL SHAHAB CHEST 2 IMAGING VIEWS ASSOCIATE FRONTAL&L S ATERAL ECG 01673 PAMELA EWING, ROUTINE 8 [facility] W/LEAST PROF SERV 12 LDS I&R ONLY DETERMINA 04004 ROLY ARVIZU 8 RUFINA Lopez REFRACTIV OD E STATE FITTING 57340 MARQUIS OLVERA SPECTACLE 8 RUFINA Lopez S XCPT OD APHAKIA MONOFOCAL FRAMES V2020 MARQUIS OLVERA, PURCHASES 8 RUFINA Lopez OD 1 VISN V2103 MICHAEL ARVIZU 8 RUFINA Lopez TO+/-4.00 OD D SPHER 0.12-2.00 D CYL EA OPHTH 30230 MARQUIS OLVERA, MEDICAL 8 RUFIAN Lopez XM&EVAL OD COMPRHNSV ESTAB PT 1/> CREATINE 22570 [facility] SANTIAGO KINASE MB 8 [facility] FRACTION INC INC ONLY CREATINE 31580 P[facility]A SANTIAGO KINASE 8 [facility] TOTAL INC INC URINE 67157 P[facility] SANTIAGO 8 [facility] TEST INC INC VISUAL COLOR CMPRSN METHS 3D 97469 YEE OLIVOUTCHER, RENDERING 8 MEDICAL SHAHAB IMAGING W/INTERP& ASSOCIATE POSTPROC S DIFF WORK STATION FIBRIN 57279 [facility] SANTIAGO DGRADJ 8 [facility] PRODUCTS INC INC D-DIMER QUAL/SEMI VENICE SEDIMENTA 83894 [facility] SANTIAGO TIGAUTAM RATE 8 [facility] RBC INC INC NON-AUTOM ATED BASIC 30008 P[facility]A SANTIAGO METABOLIC 8 [facility] PANEL INC INC CALCIUM TOTAL RADIOLOGI 14372 PAMELA SANTIAGO C EXAM 8 [facility] CHEST 2 INC INC VIEWS FRONTAL&L ATERAL CT THORAX 60578 [facility]ELA SANTIAGO W/O 8 [facility] [address] P[facility]ELA SANTIAGO TROPONIN 8 [facility] QUANTITAT INC INC SHILPI BLOOD 76909 PAMELA SANTIAGO COUNT 8 [facility] COMPLETE INC INC AUTO&AUTO DIFRNTL WBC Encounters Encounter Start End Date Code Location Performer Type Date PERIODIC 57791 ABIGAIL HAYES PREVENT 6 6 [facility] PATIENT DEPT. DEPT. 18-39 YRS EMERGENCY 95831 [facility] 6 6 ELISA [facility] VISIT PHYS HIGH/URGE NT SEVERITY OFFICE 28342 JOSEY [facility] OUTPATIEN 2 2 CO CO T VISIT [facility] HEALTH 10 DEPARTME DEPARTME MINUTES OFFICE 08176 GAYATHRI TRINH OUTPATIEN 2 2 [facility]SH[facility] MARSHALL T VISIT 15 MINUTES OFFICE 76527 AWOSIKA AWOSIKA OUTPATIEN 2 2 ABEL ABEL T NEW 30 MINUTES OFFICE 77473 JOSEY [facility]OW[facility] OUTPATIEN 1 1 CO CO T VISIT HEALTH HEALTH 10 DEPARTCO DEPARTCO MINUTES [facility]OSP[facility] - 1 1 [facility] OUTPATIEN INC T EMERGENCY 78557 [facility] 1 1 [facility] DEPARTMEN INC T VISIT HIGH/URGE NT SEVERITY PERIODIC 02037 JO[facility]Y [facility]OWL[facility] PREVENTIV 1 1 CO CO E MED EST HEALTH HEALTH PATIENT DEPARTCO DEPARTCO 18-39 YRS OFFICE 30992 GAYATHRI MARTINEN 1 1 MARSHALL MARSHALL T VISIT 15 MINUTES HOSPITAL [facility] - 1 1 [facility] OUTPATIEN INC T EMERGENCY 23164 PAMELA 1 1 [facility] DEPARTMEN INC T VISIT LOW/MODER SEVERITY EMERGENCY 79415 ARIN CRUZ 1 1 EMERGENCY DEPARTMEN SERVICES T VISIT HIGH/URGE NT SEVERITY OFFICE 17533 JOSEY VELÁZQUEZ 1 1 CO CO T VISIT HEALTH HEALTH [address] [place] [address] MINUTES OFFICE 04574 JOSEY VELÁZQUEZ 1 1 CO CO T VISIT HEALTH HEALTH 10 [facility] MINUTES OFFICE 79077 [facility] 1 1 PHYSICIAN SANDRA ALFARO NEW/ESTAB PATIENT 60 MIN OFFICE 85054 GAYATHRI VELÁZQUEZ 1 1 MARSHALL MARSHALL T VISIT 15 MINUTES EMERGENCY 65334 ARIN BRIGGS 1 1 EMERGENCY DEPARTMEN SERVICES T VISIT HIGH/URGE NT SEVERITY [facility]OSPITAL [facility] - 1 1 [facility] OUTPATIEN INC T EMERGENCY 05448 [facility] 1 1 [facility] DEPARTMEN INC T VISIT LOW/MODER SEVERITY PERIODIC 26290 JOSEY DOWLING PREVENTIV 0 0 CO CO E MED EST HEALTH HEALTH PATIENT DEPARTME DEPARTCO [id number] EMERGENCY 86783 [facility] 0 0 [facility] DEPARTMEN INC T VISIT HIGH/URGE NT SEVERITY EMERGENCY 38769 ARIN LEDBETTER, DAVID 0 0 EMERGENCY [facility] VISIT SERVICES HIGH SEVERITY& ASSOCIATE THREAT S [facility] - 0 0 [facility] OUTPATIEN INC T OFFICE 69964 GAYATHRI TRINH OUTPATIEN 0 0 SUNDEEP W SUNDEEP W T VISIT 15 MINUTES OFFICE 79922 JOSEY VELÁZQUEZ 0 0 CO CO T VISIT [facility] 10 DEPARTMEN DEPARTMEN MINUTES T T OFFICE 94045 GAYATHRI TRINH OUTPATIEN 0 0 SUNDEEP W SUNDEEP W T VISIT 15 MINUTES OFFICE 85158 GAYATHRI TRINH OUTPATIEN 0 0 SUNDEEP W SUNDEEP W T VISIT 15 MINUTES EMERGENCY 54672 [facility] 0 0 [facility] DEPARTMEN INC T VISIT MODERATE SEVERITY [facility] OUTPATIEN INC T EMERGENCY 31427 ARIN LEDBETTER, 0 0 EMERGENCY [facility] T VISIT HIGH/URGE ASSOCIATE NT S SEVERITY [facility] 0 0 [facility] OUTPATIEN INC T EMERGENCY 71867 ARIN RENTERIA 0 0 EMERGENCY [facility] SHANELLE T VISIT HIGH/URGE ASSOCIATE NT S SEVERITY EMERGENCY 80807 ARIN LEDBETTER, 9 9 EMERGENCY [facility] T VISIT HIGH/URGE ASSOCIATE NT S SEVERITY [facility] 9 9 [facility] OUTPATIEN INC T EMERGENCY 02294 [facility] 9 9 [facility] DEPARTMEN INC T VISIT LOW/MODER SEVERITY OFFICE 38717 [facility] JOSEY VELÁZQUEZ 9 9 HEALTH CO T VISIT [facility] T OFF[facility] 33630 RYAN DAVIS OUTPATIEN 9 9 NAIMA A NAIMA A T VISIT 15 MINUTES EMERGENCY 35504 ARIN LEDBETTER, 9 9 EMERGENCY [facility] DEPARTMEN SERVICES T VISIT HIGH/URGE ASSOCIATE NT S SEVERITY EMERGENCY 39518 [facility] 9 9 [facility] DEPARTMEN INC T VISIT MODERATE SEVERITY [facility] 9 9 [facility] OUTPATIEN INC T PERIODIC 79759 [facility] DOWLING PREVENTIV 9 9 HEALTH CO E MED EST [facility] PATIENT BANK ACCT DEPARTMEN - T OFFICE 42444 [facility]/CO DEBO CO OUTPATIEN 9 9 HEALTH HEALTH T NEW 10 [facility] DEPARTMEN MINUTES BANK ACCT T OFFICE 34455 RYAN DAVIS OUTPATIEN 9 9 NAIMA A NAIMA A T VISIT 15 MINUTES EMERGENCY 26729 [facility] 9 9 [facility] DEPARTMEN INC T VISIT LOW/MODER SEVERITY EMERGENCY 67289 ARIN HATFIELD, 9 9 EMERGENCY [place] DEPARTMEN SERVICES O T VISIT MODERATE ASSOCIATE SEVERITY S [facility] 9 9 [facility]PAT[facility] INC T [facility] 9 9 [facility] OUTPATI[facility] INC T OFFICE 40151 [facility] JOSEY OUTPATIEN 9 9 HEALTH CO T VISIT [facility] 15 BANK ACCT DEPARTMEN MINUTES T OFFICE 07850 RYAN DAVIS OUTPATIEN 9 9 NAIMA A NAIMA A T VISIT 15 MINUTES OFFICE 76583 RYAN DAVIS OUTPATIEN 9 9 NAIMA A NAIMA A T VISIT 15 MINUTES OFFICE 60027 MELANIA CLAIRE 8 8 [facility] T VISIT INTERNAL 15 MED MINUTES [facility] 8 8 [facility] OUTPATI[facility] INC T OFFICE 49420 MELANIA CLAIRE 8 8 [facility] T VISIT INTERNAL 15 MED MINUTES [facility] 8 8 [facility] 37573 RYAN DAVIS OUTPATIEN 8 8 NAIMA A NAIMA A T VISIT 15 MINUTES OFFICE 84555 RYAN DAVIS OUTPATIEN 8 8 NAIMA A NAIMA A T VISIT 15 MINUTES [facility] 8 8 [facility] 56965 RYAN DAVIS OUTPATIEN 8 8 NAIMA A NAIMA A T VISIT 15 MINUTES OFFICE [id number] RYAN DAVIS OUTPATIEN 8 8 NAIMA A NAIMA A T VISIT 15 MINUTES OFFICE 93276 RYAN DAVIS OUTPATIEN 8 8 NAIMA A NAIMA A T VISIT 15 MINUTES OFFICE 16103 RYAN DAVIS OUTPATIEN 8 8 NAIMA A NAIMA A T VISIT 15 MINUTES HOSPITAL [facility] - 8 8 [facility] T EMERGENCY 62620 PAMELA 8 8 [facility] T VISIT MODERATE SEVERITY
--- OUTSIDE RECORDS SUMMARY | 2017-03-14 08:32 | External Medical Summary Rpt ---
Author Author , Organization [employer] Address Unknown Phone Unavailable Care Team Providers Care Medical Imaging Tech Name Role Phone GAYATHRI COWAN Unavailable Unavailable MARSHALL GAYATHRI MARSHALL, ARNOLD Unavailable Unavailable MARSHALL SUNDEEP TRINH W, Unavailable Unavailable ARNTYREE, SUNDEEP W AWOSIKA ABEL, AWOSIKA Unavailable Unavailable ABEL AWOSIKA ABEL, AWOSIKA Unavailable Unavailable ABEL [facility] Unavailable Unavailable HEALTH C, [facility] ANGELICA ROBERT, Unavailable Unavailable ANGELICA ROBERT CHARO DOMINGUEZLAS, Unavailable Unavailable CHARO DOMINGUEZLAS [facility] Un[facility], [facility]available [facility]available [facility]available [facility]available [facility] [place] [facility]available [facility]available [place], [facility] [facility] Unavailable Unavailable [facility], Unavailable [facility] Unavailable Unavailable DEPT., [facility] DE[facility]. [facility] Unavailable Unavailable DEPT., [facility] DEPT. NITIN LEDBETTER, Unavailable Unavailable NITIN LEDBETTER GRAY ROB Unavailable Unavailable [facility] Un[facility] Un[facility], [facility] KEVIN BURGESS HARVEY, Unavailable Unavailable KEVIN [facility], Unavailable Unavailable [facility] Un[facility] Un[facility], [facility] ALHAJI EWING, Unavailable Unavailable ALHAJI EWING [facility] Unavailable Unavailable SERVICES, [facility] Unavailable Unavailable DEPARTMENT, [facility] JASMIN SANON, Unavailable Unavailable JASMIN SANON JOE A, Unavailable Unavailable NAIMA DAVIS PETTEY Unavailable Unavailable SANDRA RADHA JEA RADHA Unavailable Unavailable JEA [id number], Unavailable Unavailable [id number] Unavailable Unavailable [facility], [facility] DE[facility] Unavailable Unavailable DE[facility], [facility] DEPARTME [facility] Unavailable Unavailable DEPARTMENT, [facility] DE[facility]MENT MAY [facility] Unavailable Unavailable SAULO KHAN, Unavailable Unavailable SAULO OLVERA SOKAN BAB, SOKAN BAB Unavailable Unavailable SOKAN, CHEKO O, Unavailable Unavailable SOKAN, CHEKO O [facility] Unavailable Unavailable EMERGENCY PHYS, [facility] SHANELLE RENTERIA III, Unavailable Unavailable SHANELLE RENTERIA III Purpose Continuity of Care Document - 10-31-2007 through 2016 Problems Code Diagnosis DOS Provider Status [id number] ENCOUNTER 08-17-2016 [facility] FIELD ACCOUNT DIRECTOR EXAM [facility] HEALTH W/O DEPT. ABNORMAL FIND Z3044 ENCOUNTR 08-17-2016 [facility] CONTRACEPT O900 DISRUPTION 04-30-2016 [facility] DELIVERY PHYS WOUND 2662 OTHER 12-07-2011 JOSEY B-COMPLEX CO HEALTH DEFICIENCIE DEPARTME S V2541 SURVEILLANC 12-07-2011 [facility] E PREV CO HEALTH PRESCRIBED DEPARTME CONTRACEPT PILL 5999 UNSPECIFIED 11-04-2011 GAYATHRI OLIVARES DISORDER OF URETHRA&URI NARY TRACT 38351 RETINAL 11-02-2011 AWOSIKA ABEL NERVE FIBER BUNDLE DEFECTS 3671 MYOPIA 11-02-2011 AWOSIKA ABEL 96168 OTHER 11-02-2011 AWOSIKA ABEL CHRONIC ALLERGIC CONJUNCTIVI TIS 6264 IRREGULAR 08-04-2011 [facility] MENSTRUAL DE HEALTH CYCLE DEPARTME 63901 HORDEOLUM 06-29-2011 [facility] 50982 PAINFUL 06-29-2011 [facility] 10856 OTHER CHEST 06-29-2011 [facility] V7231 ROUTINE 06-27-2011 [facility] GYNECOLOGIC DE HEALTH AL DEPARTME EXAMINATION 4619 ACUTE 04-11-2011 ARNOLD MARSHALL SINUSITIS, UNSPECIFIED 8470 NECK SPRAIN 04-02-2011 [facility] STR[facility]ERG[facility]Y SERVICES 48790 CONTUSION 12-10-2010 [facility] 90637 PAIN IN 12-09-2010 ARNTYREE MARSHALL JOINT, LOWER LEG 8449 SPRAIN&STRA 12-02-2010 [facility] IN OF MEM HOS[facility] UNSPECIFIED INC SITE OF KNEE&LEG 89933 REGULAR 08-20-2010 [facility] 94990 ABDOMINAL 05-12-2010 [place] [facility], MEDICAL UNSPECIFIED IMAGING ASS SITE 27408 ABDOMINAL 05-12-2010 [place] [facility], [facility]ERGENCY GENERALIZED SERVICES ASSOCIATES 76096 UNSPECIFIED 04-27-2010 ARNOLD, INFECTIVE SUNDEEP W OTITIS EXTERNA 4660 ACUTE 02-20-2010 ARNOLD, BRONCHITIS SUNDEEP W 63186 ASTHMA 10-25-2009 [place] UNSPECIFIED EMERGENCY WITH SERVICES EXACERBATIO ASSOCIATES N 69465 ASTHMA, 09-17-2009 [place] UNSPECIFIED [facility]ERGENCY , SERVICES UNSPECIFIED ASSOCIATES STATUS 7862 COUGH 09-17-2009 [facility] 5110 PLEURISY 07-10-2009 [place] WITHOUT EMERGENCY MENTION SERVICES EFFUS/CURRE ASSOCIATES NT TB 514 PULMONARY 07-10-2009 [place] CONGESTION [facility] HYPOSTASIS ASSOCIATES V720 EXAMINATION 06-04-2009 MARQU[facility] Valdez OF EYES RUFINA OD AND VISION V2503 ENCOUNTER 05-22-2009 [facility] EMERGENCY HEALTH CONTRACEPT CENTRAL CNSL&PRESCR BANK ACCT IPTION 9595 INJURY 05-01-2009 RYAN, OTHER AND NAIMA Alves UNSPECIFIED FINGER 03122 PAIN IN 04-29-2009 [place] JOINT, EMERGENCY FOREARM SERVICES ASSOCIATES 44547 OTHER HAND 04-29-2009 [place] SPRAIN AND MEDICAL STRAIN IMAGING [facility] E8498 OTHER 04-29-[address] [place] [address] OF IMAGING OCCURRENCE ASSOCIATES E9170 STRIKE 04-29-2009 [place] AGNST/STRUC MEDICAL K ACC IMAGING SPORTS W/O ASSOCIATES SUBSQT FALL 94102 LUMP OR 01-13-2009 [place] MASS IN MEDICAL BREAST IMAG[facility] 4779 ALLERGIC 12-27-2008 RYAN, RHINITIS NAIMA A CAUSE UNSPECIFIED 4640 ACUTE 12-10-2008 RYAN LARYNGITIS NAIMA A 82870 COUGH 07-16-2008 [facility] ASTHMA INTERNAL MED 26097 OTHER 07-07-2008 [place] [facility] AND [facility] [place] [address] UNSPECIFIED 07-02-2008 [facility] INTERNAL MED ABNORMALITY 71157 ABDOMINAL 06-19-2008 [place] PAIN, MEDICAL EPIGASTRIC IMAGING ASSOCIATES 72461 CHEST PAIN 06-14-2008 [place] UNSPECIFIED [facility] PROF SERV 5118 PLEURISY 10-31-2007 [place] W/OTH SPEC [facility] FORMS EFFUS INC NO TUBERCULOUS 7931 NONSPEC 10-31-2007 [place] FIND RAD MEDICAL OTH EXAM IMAGING BODY [...] 76 MC 7 G IN MILLER R TN 65 03 04 30 30 00 KR [...] 7- 3- 00 SI 03 LD ve FL 02 20 20 DE ED 20 10 [...] 7- 7- 00 SI 03 LD ve FL 02 20 20 DE ED 20 10 [...] 3- 5- 00 SI 19 LD ve FL 02 20 20 DE ED 20 10 [...] 8- 7- 00 SI 82 Av ve FL 50 20 20 DE ai AM 91 [...] 20 20 DE LI 30 10 10 KS N 5 PH CH 50 AR AE [...] 8- 4- 00 SI 82 Av ve FL 00 20 20 DE ai AM 70 [...] 0 7. 10 EA 18 AR Ac FL 06 -1 -[address] 33 NO [...] 8- 6- 00 SI 82 Av ve FL 00 20 20 DE ai AM 70 [...] 2- 2- 00 SI 97 Av ve FL 34 20 20 DE ai AM 40 10 10 la 5 PH bl HB AR e R MA 40 CY MG OF TA CY BL NT ET HI AN A ME 00 05 05 0 21 6 EA 17 GA Ac TH 78 -0 -[address] 43 IN ti YL 15 2- 2- 00 SI 20 EY ve FL 02 20 20 DE ED 20 10 10 KS NI 7 PH CH SO AR AE LO MA L NE CY S 4 OF MG CY DO NT SE HI PK AN A AZ 00 05 05 0 6. 5 EA 17 GA Ac IT 09 -0 -[address] 43 IN ti HR 37 2- 2- 0 SI 21 EY ve OM 14 20 20 DE YC 61 10 10 KS IN 8 PH CH AR AE 25 [...] 2- 3- 00 SI 97 Av ve FL 34 20 20 DE ai AM 40 [...] 2- 2- 00 S 00 Av ve FL 34 20 20 PH 9 ai AM [...] 3- 1- 00 SI 19 LD ve FL 02 20 20 DE ED 20 10 10 RI NI 7 PH CH SO AR AR LO MA D NE CY W 4 OF MG CY NT DO HI SE AN PK A CI 55 02 02 00 15 15 DE 63 No Ac TA 11 -0 -1 .0 AN 90 t ti LO 10 2- 1- 00 S 86 Av ve FL 34 20 20 PH 0 ai AM [...] CY BL NT ET HI AN A FL 00 01 01 00 10 5 EA [...] 8- 4- 00 S 35 Av ve FL 34 20 20 PH 4 ai AM [...] 20 AI YC 00 09 09 D KS IN 1 PH CH AR AE 25 M L 0 #3 S MG 93 8 TA BL ET ME 00 12 12 00 21 6 RI 81 GA Ac TH 60 -0 -1 .0 TE 16 IN ti YL 34 3- 7- 00 42 EY ve FL 59 20 20 AI ED 31 09 09 D KS NI 5 PH CH SO AR AE LO M L NE #3 S 4 93 8 MG DO SE PK CI 55 12 12 00 15 15 DE 63 No Ac TA 11 -0 -1 .0 AN 88 t ti LO 10 8- 7- 00 S 35 Av ve FL 34 20 20 PH 4 ai AM [...] 0- 9- 00 S 05 Av ve FL 34 20 20 PH 3 ai AM [...] 6- 8- 00 SI 34 EY ve FL 02 20 20 DE ED 20 09 09 KS NI 7 PH CH SO AR AE LO MA L NE CY S 4 OF MG CY NT DO HI SE AN PK A AZ 00 09 10 00 6. 6 EA 14 GA Ac IT 09 -2 -[address] 43 IN ti HR 37 6- 8- 0 SI 35 EY ve OM 14 20 20 DE YC 61 09 09 KS IN 8 PH CH AR AE 25 [...] Procedure DOS Code Location Performer Comment DETERMINA 55936 AWOSIKA AWOSIKA TION 2 ABEL ABEL REFRACTIV E STATE RX&FITG 90067 AWOSIKA AWOSIKA C-LENS 2 ABEL ABEL SUPVJ CRNL LENS OU XCPT APHK FUNDUS 05531 TOMMY LOZANOKA PHOTOGRAP 2 ABEL ABEL HY W/INTERPR ETATION & REPORT CONTRACEP S4993 JOSEY DOWLING TIVE 1 CO [facility] DEPARTME DEPARTME CONTROL URINE 36888 PAMELA SANTIAGO 1 [facility] HOSP TEST INC INC VISUAL COLOR CMPRSN METHS URNLS DIP 22866 PAMELA SANTIAGO 1 [facility] HOSP STICK/TAB INC INC LET REAGENT AUTO MICROSCOP Y CULTURE 17913 PAMELA SANTIAGO BACTERIAL 1 [facility] H[facility] INC [place] [address] PAMELA SANTIAGO INFUSION 1 [facility] HOS[facility] THERAPY/P INC INC ROPHYLAXI S /DX 1ST TO 1 HR RADEX 23457 [place] ANGELICA RIBS UNI 1 MEDICAL ROBERT W/POSTERO IMAGING ANT CH ASS MINIMUM 3 VIEWS RADIOLOGI 67423 [facility] GRIGSBYANGELICA C EXAM 1 MEDICAL ROBERT CHEST 2 IMAGING VIEWS ASS FRONTAL&L ATERAL BLOOD 91027 PAMELA SANTIAGO COUNT 1 [facility] HOSP COMPLETE INC INC AUTO&AUTO DIFRNTL WBC COMPREHEN 45801 PAMELA SANTIAGO SIVE 1 [facility] [place] [address] P[facility]A SANTIAGO LIPASE 1 [facility] INC INC IADNA 55545 JOSEY DOWLING NEISSERIA 1 CO [facility] AE AMPLIFIED PROBE TQ CONTRACEP S4993 JOSEY BLANCOON TIVE 1 CO [facility] CONTROL IADNA 84151 JOSEY DOWLING CHLAMYDIA 1 [facility] TRACHOMAT [facility] IS AMPLIFIED PROBE TQ URINE 88322 PAMELA SANTIAGO 1 [facility] TEST INC INC VISUAL COLOR CMPRSN METHS RADIOLOGI 06694 YOLIEY ANGELICA C 1 MEDICAL ROBERT EXAMINATI IMAGING ON NECK ASS SOFT TISSUE CONTRACEP S4993 JOSEY DOWLING TIVE 1 [facility] CONTROL CONTRACEP S4993 JOSEY DOWLING TIVE 1 CO [facility] CONTROL RADIOLOGI 39409 YOLIEY ANGELICA C 1 MEDICAL ROBERT EXAMINATI IMAGING ON KNEE 3 ASS VIEWS KNEE L1830 [facility] ORTHOSIS 1 IMMOBLIZE R CANVAS LONGTUDNL PREFAB 1 VISN V2104 [facility] PLANO-+/- 0 ASSOCIATE DEEJAY 4.00D S SPHER 2.12-4.00 D CYL EA OPHTH 20834 [facility] MEDICAL 0 ASSOCIATE VILLALBA XM&EVAL Jennifer COMPRHNSV ESTAB PT 1/> FITTING 73307 [facility] SPECTACLE 0 ASSOCIATE DEEJAY Rodriguez XCPT S APHAKIA MONOFOCAL FRAMES V2020 [facility] PURCHASES 0 ASSOCIATE DEEJAY Rodriguez DETERMINA 32427 [facility] TION 0 ASSOCIATE VILLALBA REFRACTIV S E STATE CONTRACEP S4993 JOSEY DOWLING TIVE 0 [facility] CONTROL IADNA 21445 JOSEY DOWLING NEISSERIA 0 CO [facility] AE AMPLIFIED PROBE TQ IADNA 05295 JOSEY DOWLING CHLAMYDIA 0 CO [facility] TRACHOMAT [facility] [place] [address] PAMELA SANTIAGO INFUSION 0 [facility] THERAPY/P INC INC ROPHYLAXI S /DX 1ST TO [address] PELVIS 37999 YEE OLIVOUTCHER W/O 0 MEDICAL ROBERT CONTRAST IMAGING MATERIAL ASS BLOOD 90398 PAMELA SANTIAGO COUNT 0 [facility] COMPLETE INC INC AUTO&AUTO DIFRNTL WBC 3D 05135 YEE OLIVOUTCHER RENDERING 0 MEDICAL ROBERT IMAGING W/INTERP& ASS POSTPROC DIFF WORK STATION URNLS DIP 86386 PAMELA SANTIAGO 0 [facility] STICK/TAB INC [place] [address] [facility] GRIGSBYANGELICA ABDOMEN 0 MEDICAL ROBERT W/O IMAGING CONTRAST ASS MATERIAL URINE 54191 PAMELA SANTIAGO 0 [facility] TEST INC INC [place] [address] PAMELA SANTIAGO AMYLASE 0 [facility] INC INC COMPREHEN 80322 PAMELA SANTIAGO SIVE 0 [facility] [address] PAMELA SANTIAGO LIPASE 0 [facility] INC INC CONTRACEP S4993 JOSEY DOWLING TIVE 0 [facility] CONTROL T T URINE 59334 PAMELA SANTIAGO 0 [facility] TEST INC [place] [address] PAMELA SANTIAGO STREPTOCO 0 [facility] CCUS INC INC GROUP A URNLS DIP 15424 PAMELA SANTIAGO 0 [facility] STICK/TAB INC INC LET REAGENT AUTO MICROSCOP Y URNLS DIP 74323 PAMELA SANTIAGO 9 [facility] STICK/TAB INC INC LET REAGENT AUTO MICROSCOP Y URINE 34014 [facility]AM[facility]A SANTIAGO 9 [facility] TEST INC INC VISUAL COLOR CMPRSN METHS RADIOLOGI 21790 [place] Bhavana DOMINGUEZ EXAM 9 MEDICAL SHAHAB CHEST 2 IMAGING VIEWS ASSOCIATE FRONTAL&L S ATERAL CONTRACEP S4993 [facility] TIVE 9 [facility] ACCT DEPARTMEN CONTROL T RADIOLOGI 42499 [place] Bhavana SANON EXAM 9 MEDICAL JASMIN P CHEST 2 IMAGING VIEWS ASSOCIATE FRONTAL&L S ATERAL IAADI 82937 PAM[facility]A SANTIAGO INFLUENZA 9 [facility] B VIRUS INC INC IAADI 71121 P[facility]A SANTIAGO INFFLUENZ 9 [facility] A A VIRUS INC INC URINE 95540 PAMELA SANTIAGO 9 [facility] TEST INC INC VISUAL COLOR CMPRSN METHS CONTRACEP S4993 [facility] TIVE 9 [facility] ACCT DEPARTMEN CONTROL T DETERMINA 84818 MARQUIS OLVERA TIGAUTAM 9 RUFINA DUDLEYMARCOS Lopez REFRACTIV OD E STATE FRAMES V2020 MAR[facility] OLVERA, PURCHASES 9 RUFINA DUDLEYMARCOS Lopez OD FITTING 89813 MAR[facility]IS OLVERA, SPECTACLE 9 RUFINA DUDLEYMARCOS Lopez S XCPT OD APHAKIA MONOFOCAL OPHTH 79378 MARQUIS OLVERA, MEDICAL 9 RUFINA Lopez XM&EVAL OD COMPRHNSV ESTAB PT 1/> 1 VISN V2104 MARQUIS OLVERA, PLANO-+/- 9 RUFINA SAULO T 4.00D OD SPHER 2.12-4.00 D CYL EA CONTRACEP S4993 DHS/CO DEBO CO TIVE 9 [facility]ALTH [facility] ACCT T CONTROL RADEX 83982 [facility] SANTIAGO FINGR 9 [facility] MINIMUM 2 INC INC VIEWS RADEX 41495 P[facility]A SANTIAGO WRIST 9 [facility] COMPLETE INC INC MINIMUM 3 VIEWS URINE 62148 PAMELA SANTIAGO 9 [facility] TEST INC INC VISUAL COLOR CMPRSN METHS US BREAST 39226 [facility] SANTIAGO REAL 9 [facility] TIME INC INC W/IMAGE DOCUMENTA TIGAUTAM PRESSURIZ 13743 [facility]A SANTIAGO ED/NONPRE 8 [facility] SSURIZED INC INC INHALATIO N TREATMENT BRNCDILAT 96834 [facility]A SANTIAG[facility] RSPSE 8 [facility] SPMTRY INC INC PRE&POST- BRNCDILAT ADMN FUNCTIONA 89722 PAMELA SANTIAGO L 8 [facility] RESIDUAL INC INC CAPACITY OR RESIDUAL VOLUME DETER 00145 PAMELA SANTIAGO MALDISTRI 8 [facility] BJ OF INC INC INSPIRED GAS N WSHOT CURVE DETER 03814 PAM[facility]A SANTIAGO AIRWY 8 [facility] CLOSING INC INC VOL [address] [place] [address] [place] FAB, ABDOMINAL 8 MEDICAL JASMIN P REAL IMAGING TIME ASSOCIATE W/IMAGE S LIMITED RADEX 24725 [place] ANGELICA, UPPER GI 8 MEDICAL SHAHAB W/WO IMAGING GLUCAGON/ ASSOCIATE DELAY S IMAGES W/KUB ECG 50228 PAMELA SANTIAGO ROUTINE 8 [facility] ECG INC INC W/LEAST 12 LDS TRCG ONLY W/O I&R RADIOLOGI 33762 [place] ANGELICA, C EXAM 8 MEDICAL SHAHAB CHEST 2 IMAGING VIEWS ASSOCIATE FRONTAL&L S ATERAL ECG 62286 PAMELA EWING, ROUTINE 8 [facility] W/LEAST PROF SERV 12 LDS I&R ONLY DETERMINA 93212 ROLY ARVIZU 8 RUFINA Lopez REFRACTIV OD E STATE FITTING 51003 MARQUIS OLVERA SPECTACLE 8 RUFINA Lopez S XCPT OD APHAKIA MONOFOCAL FRAMES V2020 MARQUIS OLVERA, PURCHASES 8 RUFINA Lopez OD 1 VISN V2103 MICHAEL ARVIZU 8 RUFINA Lopez TO+/-4.00 OD D SPHER 0.12-2.00 D CYL EA OPHTH 00211 MARQUIS OLVERA, MEDICAL 8 RUFINA Lopez XM&EVAL OD COMPRHNSV ESTAB PT 1/> CREATINE 78489 PAMELA SANTIAGO KINASE MB 8 [facility] FRACTION INC INC ONLY CREATINE 18721 PAM[facility]A SANTIAGO KINASE 8 [facility] TOTAL INC INC URINE 82487 PAMELA SANTIAGO 8 [facility] TEST INC INC VISUAL COLOR CMPRSN METHS 3D 03260 YEE OLIVOUTCHER, RENDERING 8 MEDICAL SHAHAB IMAGING W/INTERP& ASSOCIATE POSTPROC S DIFF WORK STATION FIBRIN 00037 [facility]A SANTIAGO DGRADJ 8 [facility] PRODUCTS INC INC D-DIMER QUAL/SEMI VENICE SEDIMENTA 96280 PAMELA SANTIAGO TIGAUTAM RATE 8 [facility] HOSP RBC INC INC NON-AUTOM ATED BASIC 05412 PAMELA SANTIAGO METABOLIC 8 [facility] HOSP PANEL INC INC CALCIUM TOTAL RADIOLOGI 81472 PAMELA SANTIAGO C EXAM 8 [facility]OS[facility] CHEST 2 INC INC VIEWS FRONTAL&L ATERAL CT THORAX 25582 PAMELA SANTIAGO W/O 8 [facility] [place] [address] PAMELA SANTIAGO TROPONIN 8 [facility] QUANTITAT INC INC SHILPI BLOOD 31063 PAMELA SANTIAGO COUNT 8 [facility] COMPLETE INC INC AUTO&AUTO DIFRNTL WBC Encounters Encounter Start End Date Code Location Performer Type Date PERIODIC 95639 ABIGAIL HAYES PREVENT 6 6 [facility] PATIENT DEPT. DEPT. 18-[address] [facility] 6 6 ELISA [facility] V[facility] PHYS HIGH/URGE NT SEVERITY OFFICE 31667 JOSEY DOWLING OUTPATIEN 2 2 CO CO T VISIT [facility] HEALTH 10 DEPARTME DEPARTME MINUTES OFFICE 58460 GAYATHRI TRINH OUTPATIEN 2 2 MARSHALL MARSHALL T VISIT 15 MINUTES OFFICE 72633 AWOSIKA AWOSIKA OUTPATIEN 2 2 ABEL ABEL T NEW 30 MINUTES OFFICE 34728 JOSEY DOWLING OUTPATIEN 1 1 CO CO T VISIT HEALTH HEALTH 10 DEPARTTN DEPARTTN MINUTES HOSPITAL PAMELA - 1 1 [facility] OUTPATIEN INC T EMERGENCY 07955 PAMELA 1 1 [facility] DEPARTMEN INC T VISIT HIGH/URGE NT SEVERITY PERIODIC 25208 JOSEY DOWLING PREVENTIV 1 1 CO CO E MED EST HEALTH HEALTH PATIENT DEPARTTN DEPARTTN 18-39 YRS OFFICE 32973 GAYATHRI MARTINEN 1 1 MARSHALL MARSHALL T VISIT 15 MINUTES HOSPITAL [facility] - 1 1 [facility] OUTPATIEN INC T EMERGENCY 41349 PAMELA 1 1 [facility] DEPARTMEN INC T VISIT LOW/MODER SEVERITY EMERGENCY 62414 ARIN CRUZ 1 1 EMERGENCY DEPARTMEN SERVICES T VISIT HIGH/URGE NT SEVERITY OFFICE 26477 JOSEY VELÁZQUEZ 1 1 CO CO T VISIT HEALTH HEALTH [address] [place] [address] MINUTES OFFICE 28450 JOSEY VELÁZQUEZ 1 1 CO CO T VISIT HEALTH HEALTH 10 [facility] MINUTES OFFICE 54371 [facility] CONSULTAT 1 1 PHYSICIAN SANDRA ALFARO NEW/ESTAB PATIENT 60 MIN OFFICE 26841 GAYATHRI VELÁZQUEZ 1 1 MARSHALL MARSHALL T VISIT 15 MINUTES EMERGENCY 03831 ARIN BRIGGS 1 1 EMERGENCY DEPARTMEN SERVICES T VISIT HIGH/URGE NT SEVERITY HOSPITAL [facility] - 1 1 [facility] OUTPATIEN INC T EMERGENCY 12478 PAMELA 1 1 [facility] DEPARTMEN INC T VISIT LOW/MODER SEVERITY PERIODIC 92836 JOSEY DOWLING PREVENTIV 0 0 CO CO E MED EST HEALTH HEALTH PATIENT DEPARTME DEPARTTN 12-17YRS EMERGENCY 01385 PAMELA 0 0 [facility] DEPARTMEN INC T VISIT HIGH/URGE NT SEVERITY EMERGENCY 74048 ARIN LEDBETTER, DAVID 0 0 EMERGENCY [facility] VISIT SERVICES HIGH SEVERITY& ASSOCIATE THREAT S [facility] PAMELA - 0 0 [facility] OUTPATIEN INC T OFFICE 54825 GAYATHRI TRINH OUTPATIEN 0 0 SUNDEEP W SUNDEEP W T VISIT 15 MINUTES OFFICE 64931 JOSEY VELÁZQUEZ 0 [address] [place] CO [facility]IS[facility] 10 DEPARTMEN DEPARTMEN MINUTES T T OFFICE 38687 GAYATHRI TRINH OUTPATIEN 0 0 SUNDEEP W SUNDEEP W T VISIT 15 MINUTES OFFICE 40425 GAYATHRI TRINH OUTPATIEN 0 0 SUNDEEP W SUNDEEP W T VISIT 15 MINUTES EMERGENCY 78482 [facility] 0 0 [facility] DE[facility] INC T VISIT MODERATE SEVERITY [facility] - [facility] T EMERGENCY 62093 ARIN LEDBETTER, 0 0 EMERGENCY [facility] T VISIT HIGH/URGE ASSOCIATE NT S SEVERITY [facility]OSP[facility] - 0 0 [facility] T EMERGENCY 63012 ARIN RENTERIA 0 0 EMERGENCY [facility] SHAN[facility]LE T VISIT HIGH/URGE ASSOCIATE NT S SEVERITY EMERGENCY 07666 ARIN LEDBETTER, 9 9 EMERGENCY [facility] T VISIT HIGH/URGE ASSOCIATE NT S SEVERITY [facility] - 9 9 [facility] OUT[facility] INC T EMERGENCY 84702 [facility] 9 9 [facility] DEPARTMEN INC T VISIT LOW/MODER SEVERITY OFFICE 97186 DHS/CO JOSEY VELÁZQUEZ 9 9 HEALTH CO T VISIT [facility]ES T OFF[facility] 16958 RYAN DAVIS OUTPATIEN 9 9 NAIMA A NAIMA A T VISIT 15 MINUTES EMERGENCY 37316 ARIN LEDBETTER, 9 9 EMERGENCY [facility] S DEPARTMEN SERVICES T VISIT HIGH/URGE ASSOCIATE NT S SEVERITY EMERGENCY 34724 [facility] 9 9 [facility] DEPARTMEN INC T VISIT MODERATE SEVERITY [facility] - 9 9 [facility] OUT[facility] T PERIODIC 95743 DHS/CO DOWLING PREVENTIV 9 9 HEALTH CO E MED EST [facility] PATIENT BANK ACCT DEPARTMEN - T OFFICE 90888 DHS/CO DEBO CO OUTPATIEN 9 9 HEALTH HEALTH T NEW 10 [facility] DEPARTMEN MINUTES BANK ACCT T OFFICE 37261 RYAN DAVIS OUTPATIEN 9 9 NAIMA A NAIMA A T VISIT 15 MINUTES EMERGENCY 54808 [facility] 9 9 [facility] DEPARTMEN INC T VISIT LOW/MODER SEVERITY EMERGENCY 87696 ARIN HAFTIELD, 9 9 EMERGENCY [place] DEPARTMEN SERVICES O T VISIT MODERATE ASSOCIATE SEVERITY S [facility]OSP[facility] - 9 9 [facility] T [facility] - 9 9 [facility] T OFFICE 60289 DHS/CO JOSEY OUTPATIEN 9 9 HEALTH CO T VISIT [facility] 15 BANK ACCT DEPARTMEN MINUTES T OFFICE 38678 RYAN DAVIS OUTPATIEN 9 9 NAIMA A NAIMA A T VISIT 15 MINUTES OFFICE 08062 RYAN DAVIS OUTPATIEN 9 9 NAIMA A NAIMA A T VISIT 15 MINUTES OFFICE 31753 MELANIA CLAIRE 8 8 [facility] T VISIT INTERNAL 15 MED MINUTES [facility] - 8 8 [facility] T OFFICE 54902 MELANIA CLAIRE 8 8 [facility] K[facility] T VISIT INTERNAL 15 MED MINUTES [facility] - 8 8 [facility] 20333 RYAN DAVIS OUTPATIEN 8 8 NAIMA A NAIMA A T VISIT 15 MINUTES OFFICE 42509 RYAN DAVIS OUTPATIEN 8 8 NAIMA A NAIMA A T [facility]ISIT 15 MINUTES [facility] - 8 8 [facility] T OFFICE 71799 RYAN DAVIS OUTPATIEN 8 8 NAIMA A NAIMA A T VISIT 15 MINUTES OFFICE 33174 RYAN DAVIS OUTPATIEN 8 8 NAIMA A NAIMA A T VISIT 15 MINUTES OFFICE 04989 RYAN DAVIS OUTPATIEN 8 8 NAIMA A NAIMA A T VISIT 15 MINUTES OFFICE 07521 RYAN DAVIS OUTPATIEN 8 8 NAIMA A NAIMA A T VISIT 15 MINUTES [facility] - 8 8 [facility] INC T EMERGENCY 51678 P[facility] 8 8 [facility] T VIS[facility] MODERATE [facility]VERITY
--- OUTSIDE RECORDS SUMMARY | 2017-03-14 08:33 | External Medical Summary Rpt ---
Author Author , Organization [employer] Address Unknown Phone Unavailable Purpose Continuity of Care Document - 01-31-1997 through 2016 Immunization Name Date Route CVX Reacti Commen Provid Is Given on t er Refuse d MCV4 Histor H2 No UF 2007 ical Inform ation - Source Unspec ified HPV4 Histor H201 No (Garda 2006 ical tom) Inform ation - Source Unspec ified HPV4 Histor H2 No (Garda 2006 ical tom) Inform ation - Source Unspec ified HPV4 Histor H201 No (Garda 2006 ical tom) Inform ation - Source Unspec ified Td 9 Histor H201 No (adult 2003 ical ), Inform adsorb ation ed - Source Unspec ified DTP 01-31- Histor H201 No 1996 ical Inform ation - Source Unspec ified Polio- 01-31- 2 Histor H201 No OPV 1996 ical Inform ation - Source Unspec ified MMR 01-31- 3 Histor H201 No 1996 ical Inform ation - Source Unspec ified
--- OUTSIDE RECORDS SUMMARY | 2017-03-14 08:33 | External Medical Summary Rpt ---
Author Author MAYDAMARGUERITE Alvarado, [employer] Address Unknown Phone Unavailable Results Urinalysis macro (dipstick) panel in Urine Observa Value Referen Units Interpr Notes Date tion ce etation Range Appeara Clear CLEAR No No No March 08 nce of informa informa informa 2016 Urine tion in tion in tion in 7:19 PM source source source data data data Bilirub NEGATIV NEG No No No March 08 in E informa informa informa 2016 [Presen tion in tion in tion in 7:19 PM ce] in source source source Urine data data data by Test strip Erythro NEGATIV NEG No No No March 08 cytes E informa informa informa 2016 [Presen tion in tion in tion in 7:19 PM ce] in source source source Urine data data data Color DARK YELLOW No No No March 08 of YELLOW informa informa informa 2017 Urine tion in tion in tion in 7:19 PM source source source data data data Glucose NEG No No No March 08 [Mass/vol informati informati informati 2016 7:19 ume] in on in on in on in PM Urine by source source source Test data data data strip Ketones NEGATIV NEG mg/dL No No March 08 E informa informa 2016 [Presen tion in tion in 7:19 PM ce] in source source Urine data data by Automat ed test strip pH of 5.0 - 8.5 No Normal No March 08 Urine informati informati 2017 7:19 on in on in PM source source data data Protein NEG mg/dL No No March 08 [Mass/vol informati informati 2016 7:19 ume] in on in on in PM Urine by source source Automated data data test strip Specific 1.005 - No Normal No March 08 gravity 1.030 informati informati 2016 7:19 of Urine on in on in PM source source data data Leukocy NEGATIV NEG No No No March 08 te E informa informa informa 2017 esteras tion in tion in tion in 7:19 PM e source source source [Presen data data data ce] in Urine by Automat ed test strip Nitrite POSITIV NEG No Abnorma No March 08 E informa l informa 2016 [Presen tion in tion in 7:19 PM ce] in source source Urine data data by Test strip Urobili 1.0 NEG E.U./dL No No March 08 nogen informa informa 2016 [Presen tion in tion in 7:19 PM ce] in source source Urine data data by Test strip CHLAMYDIA AND GONORRHEA TESTING Observa Value Referen Units Interpr Notes Date tion ce etation Range COLLECT TV No No No No Nov 2 OR informa informa informa informa 2016 tion in tion in tion in tion in 8:00 AM source source source source data data data data ETHNICI WHITE, No No No No Nov 2 TY NON-HIS informa informa informa informa 2016 PANIC tion in tion in tion in tion in 8:00 AM source source source source data data data data KIT 03-31-2 No No No No Nov 2 EXPIRAT 017 informa informa informa informa 2016 ION tion in tion in tion in tion in 8:00 AM DATE source source source source data data data data SYMPTOM NO No No No No Nov 2 S informa informa informa informa 2016 tion in tion in tion in tion in 8:00 AM source source source source data data data data REASON VOLUNTE No No No No Nov 2 FOR ER/MEDI informa informa informa informa 2016 REQUEST MEDHAT tion in tion in tion in tion in 8:00 AM PROBLEM source source source source data data data data SPECIME FEMALE No No No No Nov 2 N ENDOCER informa informa informa informa 2016 SOURCE VICAL tion in tion in tion in tion in 8:00 AM source source source source data data data data PREGNAN NO No No No No Nov 2 T informa informa informa informa 2016 tion in tion in tion in tion in 8:00 AM source source source source data data data data CHART [id number] No No No No Nov 2 NUMBER informa informa informa informa 2016 tion in tion in tion in tion in 8:00 AM source source source source data data data data Chlamyd NEGATIV No No No NEGATIV Nov 2 ia E informa informa informa E 2016 trachom tion in tion in tion in RESULT= 8:00 AM atis source source source WITHIN rRNA data data data NORMAL [Presen ce] in LIMITSP Unspeci OSITIVE fied specime RESULT= n by Probe & ABNORMA target LEQUIVO MEDHAT amplifi RESULT= cation method INDETER MINATEU NSATISF ACTORY RESULT= INVALID Neisser NEGATIV No No No NEGATIV Nov 2 ia E informa informa informa E 2016 gonorrh tion in tion in tion in RESULT= 8:00 AM oeae source source source WITHIN rRNA data data data NORMAL [Presen ce] in LIMITSP Unspeci OSITIVE fied specime RESULT= n by Probe & ABNORMA target LEQUIVO MEDHAT amplifi RESULT= cation method INDETER MINATEU NSATISF ACTORY RESULT= INVALID THE APTIMA COMBO 2 ASSAY IS NOT INTENDE D FOR THE EVALUAT ION OF SUSPECT EDSEXUA L ABUSE OR FOR OTHER MEDICO- LEGAL INDICAT IONS. FOR THOSE PATIENT S FORWHOM A FALSE POSITIV E RESULT MAY HAVE ADVERSE PSYCHO- SOCIAL IMPACT, [facility] NG.\.br \This report contain s patient informa tion that must be protect ed in accorda nce with the Health Insuran ce Portabi lity and Account ability Act. CHLAMYDIA AND GONORRHEA TESTING Observa Value Referen Units Interpr Notes Date tion ce etation Range COLLECT TV No No No No Aug 2 OR informa informa informa informa 2016 tion in tion in tion in tion in 8:00 AM source source source source data data data data ETHNICI WHITE, No No No No Nov 2 TY NON-HIS informa informa informa informa 2016 PANIC tion in tion in tion in tion in 8:00 AM source source source source data data data data KIT --2 No No No No Nov 2 EXPIRAT 017 informa informa informa informa 2016 ION tion in tion in tion in tion in 8:00 AM DATE source source source source data data data data SYMPTOM NO No No No No Nov 2 S informa informa informa informa 2016 tion in tion in tion in tion in 8:00 AM source source source source data data data data REASON VOLUNTE No No No No Aug 2 FOR ER/MEDI informa informa informa informa 2016 REQUEST MEDHAT tion in tion in tion in tion in 8:00 AM PROBLEM source source source source data data data data SPECIME FEMALE No No No No Nov 2 N ENDOCER informa informa informa informa 2016 SOURCE VICAL tion in tion in tion in tion in 8:00 AM source source source source data data data data PREGNAN NO No No No No Aug 2 T informa informa informa informa 2016 tion in tion in tion in tion in 8:00 AM source source source source data data data data CHART [id number] No No No No Nov 2 NUMBER informa informa informa informa 2016 tion in tion in tion in tion in 8:00 AM source source source source data data data data Chlamyd Pending No No No No Aug 2 ia informa informa informa informa 2016 trachom tion in tion in tion in tion in 8:00 AM atis source source source source rRNA data data data data [Presen ce] in Unspeci fied specime n by Probe & target amplifi cation method Neisser Pending No No No \.br\Aug 17 ia informa informa informa is 2016 gonorrh tion in tion in tion in report 8:00 AM oeae source source source contain rRNA data data data s [Presen patient ce] in Unspeci informa fied tion specime that n by must be Probe & target protect ed in amplifi accorda cation nce method with the Health Insuran ce Portabi lity and Account ability Act. CHLAMYDIA AND GONORRHEA TESTING Observa Value Referen Units Interpr Notes Date tion ce etation Range COLLECT TV No No No No Apr 04 OR informa informa informa informa 2016 tion in tion in tion in tion in 8:00 AM source source source source data data data data ETHNICI WHITE, No No No No Apr 04 TY NON-HIS informa informa informa informa 2016 PANIC tion in tion in tion in tion in 8:00 AM source source source source data data data data KIT No No No No Apr 04 EXPIRAT 6 informa informa informa informa 2016 ION tion in tion in tion in tion in 8:00 AM DATE source source source source data data data data SYMPTOM YES No No No No Apr 04 S informa informa informa informa 2016 tion in tion in tion in tion in 8:00 AM source source source source data data data data REASON VOLUNTE No No No No Apr 04 FOR ER/MEDI informa informa informa informa 2016 REQUEST MEDHAT tion in tion in tion in tion in 8:00 AM PROBLEM source source source source data data data data SPECIME FEMALE No No No No Apr 04 N ENDOCER informa informa informa informa 2016 SOURCE VICAL tion in tion in tion in tion in 8:00 AM source source source source data data data data PREGNAN YES No No No No Apr 04 T informa informa informa informa 2016 tion in tion in tion in tion in 8:00 AM source source source source data data data data CHART [id number] No No No No Apr 04 NUMBER informa informa informa informa 2016 tion in tion in tion in tion in 8:00 AM source source source source data data data data Chlamyd NEGATIV No No No NEGATIV Apr 04 ia E informa informa informa E 2016 trachom tion in tion in tion in RESULT= 8:00 AM atis source source source WITHIN rRNA data data data NORMAL [Presen ce] in LIMITSP Unspeci OSITIVE fied specime RESULT= n by Probe & ABNORMA target LEQUIVO MEDHAT amplifi RESULT= cation method INDETER MINATEU NSATISF ACTORY RESULT= INVALID Neisser NEGATIV No No No NEGATIV Apr 04 ia E informa informa informa E 2016 gonorrh tion in tion in tion in RESULT= 8:00 AM oeae source source source WITHIN rRNA data data data NORMAL [Presen ce] in LIMITSP Unspeci OSITIVE fied specime RESULT= n by Probe & ABNORMA target LEQUIVO MEDHAT amplifi RESULT= cation method INDETER MINATEU NSATISF ACTORY RESULT= INVALID THE APTIMA COMBO 2 ASSAY IS NOT INTENDE D FOR THE EVALUAT ION OF SUSPECT EDSEXUA L ABUSE OR FOR OTHER MEDICO- LEGAL INDICAT IONS. FOR THOSE PATIENT S FORWHOM A FALSE POSITIV E RESULT MAY HAVE ADVERSE PSYCHO- SOCIAL IMPACT, THE [facility]DS RETESTI NG.\.br \This report contain s patient informa tion that must be protect ed in accorda nce with the Health Insuran ce Portabi lity and Account ability Act. CHLAMYDIA AND GONORRHEA TESTING Observa Value Referen Units Interpr Notes Date tion ce etation Range COLLECT TV No No No No Apr 04 OR informa informa informa informa 2016 tion in tion in tion in tion in 8:00 AM source source source source data data data data ETHNICI WHITE, No No No No Apr 04 TY NON-HIS informa informa informa informa 2016 PANIC tion in tion in tion in tion in 8:00 AM source source source source data data data data KIT No No No No Apr 04 EXPIRAT 6 informa informa informa informa 2016 ION tion in tion in tion in tion in 8:00 AM DATE source source source source data data data data SYMPTOM YES No No No No Apr 04 S informa informa informa informa 2016 tion in tion in tion in tion in 8:00 AM source source source source data data data data REASON VOLUNTE No No No No Apr 04 FOR ER/MEDI informa informa informa informa 2016 REQUEST MEDHAT tion in tion in tion in tion in 8:00 AM PROBLEM source source source source data data data data SPECIME FEMALE No No No No Apr 04 N ENDOCER informa informa informa informa 2016 SOURCE VICAL tion in tion in tion in tion in 8:00 AM source source source source data data data data PREGNAN YES No No No No Apr 04 T informa informa informa informa 2016 tion in tion in tion in tion in 8:00 AM source source source source data data data data CHART [id number] No No No No Apr 04 NUMBER informa informa informa informa 2016 tion in tion in tion in tion in 8:00 AM source source source source data data data data Chlamyd Pending No No No No Apr 04 ia informa informa informa informa 2016 trachom tion in tion in tion in tion in 8:00 AM atis source source source source rRNA data data data data [Presen ce] in Unspeci fied specime n by Probe & target amplifi cation method Neisser Pending No No No \.br\Apr 04 ia informa informa informa is 2016 gonorrh tion in tion in tion in report 8:00 AM oeae source source source contain rRNA data data data s [Presen patient ce] in Unspeci informa fied tion specime that n by must be Probe & target protect ed in amplifi accorda cation nce method with the Health Insuran ce Portabi lity and Account ability Act. CHLAMYDIA AND GONORRHEA TESTING Observa Value Referen Units Interpr Notes Date tion ce etation Range COLLECT TV No No No No Jan 14 OR informa informa informa informa 2016 tion in tion in tion in tion in 8:00 AM source source source source data data data data ETHNICI WHITE, No No No No Jan 14 TY NON-HIS informa informa informa informa 2016 PANIC tion in tion in tion in tion in 8:00 AM source source source source data data data data KIT No No No No Jan 14 EXPIRAT 7 informa informa informa informa 2016 ION tion in tion in tion in tion in 8:00 AM DATE source source source source data data data data SYMPTOM NO No No No No Jan 14 S informa informa informa informa 2016 tion in tion in tion in tion in 8:00 AM source source source source data data data data REASON VOLUNTE No No No No Jan 14 FOR ER/MEDI informa informa informa informa 2016 REQUEST MEDHAT tion in tion in tion in tion in 8:00 AM PROBLEM source source source source data data data data SPECIME URINE No No No No Jan 14 N informa informa informa informa 2016 SOURCE tion in tion in tion in tion in 8:00 AM source source source source data data data data PREGNAN NO No No No No Jan 14 T informa informa informa informa 2016 tion in tion in tion in tion in 8:00 AM source source source source data data data data CHART [id number] No No No No Jan 14 NUMBER informa informa informa informa 2016 tion in tion in tion in tion in 8:00 AM source source source source data data data data Chlamyd POSITIV No No No NEGATIV Jan 27 ia E informa informa informa E 2016 trachom tion in tion in tion in RESULT= 8:00 AM atis source source source WITHIN rRNA data data data NORMAL [Presen ce] in LIMITSP Unspeci OSITIVE fied specime RESULT= n by Probe & ABNORMA target LEQUIVO MEDHAT amplifi RESULT= cation method INDETER MINATEU NSATISF ACTORY RESULT= INVALID Neisser NEGATIV No No No NEGATIV Jan 27 ia E informa informa informa E 2016 gonorrh tion in tion in tion in RESULT= 8:00 AM oeae source source source WITHIN rRNA data data data NORMAL [Presen ce] in LIMITSP Unspeci OSITIVE fied specime RESULT= n by Probe & ABNORMA target LEQUIVO MEDHAT amplifi RESULT= cation method INDETER MINATEU NSATISF ACTORY RESULT= INVALID THE APTIMA COMBO 2 ASSAY IS NOT INTENDE D FOR THE EVALUAT ION OF SUSPECT EDSEXUA L ABUSE OR FOR OTHER MEDICO- LEGAL INDICAT IONS. FOR THOSE PATIENT S FORWHOM A FALSE POSITIV E RESULT MAY HAVE ADVERSE PSYCHO- SOCIAL IMPACT, [facility] NG.\.br \This report contain s patient informa tion that must be protect ed in accorda nce with the Health Insuran ce Portabi lity and Account ability Act. CHLAMYDIA AND GONORRHEA TESTING Observa Value Referen Units Interpr Notes Date tion ce etation Range COLLECT TV No No No No Jan 27 OR informa informa informa informa 2016 tion in tion in tion in tion in 8:00 AM source source source source data data data data ETHNICI WHITE, No No No No Jan 27 TY NON-HIS informa informa informa informa 2016 PANIC tion in tion in tion in tion in 8:00 AM source source source source data data data data KIT No No No No Jan 27 EXPIRAT 7 informa informa informa informa 2016 ION tion in tion in tion in tion in 8:00 AM DATE source source source source data data data data SYMPTOM NO No No No No Jan 27 S informa informa informa informa 2016 tion in tion in tion in tion in 8:00 AM source source source source data data data data REASON VOLUNTE No No No No Jan 27 FOR ER/MEDI informa informa informa informa 2016 REQUEST MEDHAT tion in tion in tion in tion in 8:00 AM PROBLEM source source source source data data data data SPECIME URINE No No No No Jan 14 N informa informa informa informa 2016 SOURCE tion in tion in tion in tion in 8:00 AM source source source source data data data data PREGNAN NO No No No No Jan 14 T informa informa informa informa 2016 tion in tion in tion in tion in 8:00 AM source source source source data data data data CHART [id number] No No No No Jan 27 NUMBER informa informa informa informa 2016 tion in tion in tion in tion in 8:00 AM source source source source data data data data Chlamyd Pending No No No No Jan 27 ia informa informa informa informa 2016 trachom tion in tion in tion in tion in 8:00 AM atis source source source source rRNA data data data data [Presen ce] in Unspeci fied specime n by Probe & target amplifi cation method Neisser Pending No No No \.br\Jan 27 ia informa informa informa is 2016 gonorrh tion in tion in tion in report 8:00 AM oeae source source source contain rRNA data data data s [Presen patient ce] in Unspeci informa fied tion specime that n by must be Probe & target protect ed in amplifi accorda cation nce method with the Health Insuran ce Portabi lity and Account ability Act. CHLAMYDIA AND GONORRHEA TESTING Observa Value Referen Units Interpr Notes Date tion ce etation Range COLLECT D No No No No Sep 12 OR DEIDRE informa informa informa informa 2010 TOILET ATTENDANT tion in tion in tion in tion in 12:32 source source source source PM data data data data ETHNICI WHITE, No No No No Sep 12 TY NON-HIS informa informa informa informa 2010 PANIC tion in tion in tion in tion in 12:32 source source source source PM data data data data KIT 10/27 No No No No Jun 27 EXPIRAT informa informa informa informa 2011 ION tion in tion in tion in tion in 12:32 DATE source source source source PM data data data data SYMPTOM NO No No No No Jun 12 S informa informa informa informa 2011 tion in tion in tion in tion in 12:32 source source source source PM data data data data REASON REVISIT No No No No Jun 12 FOR /ANNUAL informa informa informa informa 2011 REQUEST FAMILY tion in tion in tion in tion in 12:32 source source source source PM PLANNIN data data data data G VISIT SPECIME FEMALE No No No No Jun 12 N ENDOCER informa informa informa informa 2011 SOURCE VICAL tion in tion in tion in tion in 12:32 source source source source PM data data data data PREGNAN NO No No No No Jun 12 T informa informa informa informa 2011 tion in tion in tion in tion in 12:32 source source source source PM data data data data CHART [id number] No No No No Jun 12 NUMBER 57 informa informa informa informa 2011 tion in tion in tion in tion in 12:32 source source source source PM data data data data Chlamyd NEGATIV No No No NEGATIV Jun 12 ia E informa informa informa E 2011 trachom tion in tion in tion in RESULT= 12:32 atis source source source WITHIN PM rRNA data data data NORMAL [Presen ce] in LIMITSP Unspeci OSITIVE fied specime RESULT= n by Probe & ABNORMA target LEQUIVO MEDHAT amplifi RESULT= cation method INDETER MINATEU NSATISF ACTORY RESULT= INVALID Neisser NEGATIV No No No NEGATIV Sep 12 ia E informa informa informa E 2011 gonorrh tion in tion in tion in RESULT= 12:32 oeae source source source WITHIN PM rRNA data data data NORMAL [Presen ce] in LIMITSP Unspeci OSITIVE fied specime RESULT= n by Probe & ABNORMA target LEQUIVO MEDHAT amplifi RESULT= cation method INDETER MINATEU NSATISF ACTORY RESULT= INVALID EFFECTI VE NOVEMBE R 2009: THE APTIMA COMBO 2 NUCLEIC ACIDAMP LIFICAT ION ASSAY IS NOT INTENDE D FOR THE EVALUAT ION OFSUSPE CTED SEXUAL ABUSE OR FOR OTHER MEDICO- LEGAL INDICAT IONS.FA LSE POSITIV E RESULTS ARE POSSIBL E.\.br\ This report contain s patient informa tion that must be protect ed in accorda nce with the Health Insuran ce Portabi lity and Account ability Act.
--- OUTSIDE RECORDS SUMMARY | 2017-03-14 08:33 | External Medical Summary Rpt ---
[...] source source data data data data CHART [id number] No No No No Nov 2 NUMBER [...] MAY HAVE ADVERSE PSYCHO- SOCIAL IMPACT, [facility] NG.\.br \This report contain s [...] source source data data data data CHART [id number] No No No No Nov 2 NUMBER [...] source source data data data data CHART [id number] No No No No Apr 04 NUMBER [...] source source data data data data CHART [id number] No No No No Apr 04 NUMBER [...] source source data data data data CHART [id number] No No No No Jan 14 NUMBER [...] MAY HAVE ADVERSE PSYCHO- SOCIAL IMPACT, [facility] [place] RET[facility]I NG.\.br \This report contain s [...] source source data data data data CHART [id number] No No No No Jan 27 NUMBER [...] OR DEIDRE informa informa informa informa 2010 PHYSICAL THERAPY COORDINATOR tion in tion in tion in tion [...] source PM data data data data CHART [id number] No No No No Jun 12 NUMBER [...]
== END 2017-03-08 19:50 | disposition home or self-care (01) ==
LOC: UTC 19:07
PROVIDERS: Nurse Practitioner Family
DX: N39.0 Urinary tract infection, site not specified (principal); I10 Essential (primary) hypertension; F41.9 Anxiety disorder, unspecified; Z72.0 Tobacco use

== ENCOUNTER 2017-05-16 14:32 | Emergency (ER) | payer MEDICAID ==
[~2017-05-16] VITALS: Ht 165.1 cm; Wt 46.7 kg
[~2017-05-16 14:32] MED LIST changes: +MACROBID100 M3 PO; +NUVARING1 ICR VG; +PYRIDIUM200 M2 PO
--- OUTSIDE RECORDS SUMMARY | 2017-05-16 14:53 | External Medical Summary Rpt ---
Author Author , ROBERT Downing ROBERT Address Unknown Phone [email or web address] Care Team Providers Care Transition Mgr Name Role Phone GAYATHRI OLIVARES, GAYATHRI Unavailable Unavailable MARSHALL ARNOLD MARSHALL, ARNOLD Unavailable Unavailable MARSHALL SUNDEEP TRINH W, Unavailable Unavailable GAYATHRI, SUNDEEP W AWOSIKA, AWOSIKA Unavailable Unavailable AWOSIKA, AWOSIKA Unavailable Unavailable AWOSIKA ABEL, AWOSIKA Unavailable Unavailable ABEL AWOSIKA ABEL, AWOSIKA Unavailable Unavailable ABEL [facility] Unavailable Unavailable HEALTH C, [facility] SHAHAB DOMINGUEZ, Unavailable Unavailable SHAHAB DOMINGUEZ [facility] Un[facility] Unavailable [facility], Unavailable Unavailable [facility] [place] [facility] [place] Unavailable Unavailable [facility] Unavailable [facility] Unavailable Unavailable DEPT., [facility] DE[facility]. [facility] Unavailable Unavailable DEPT., [facility] DE[facility]. NITIN LEDBETTER, Unavailable Unavailable [facility] LED[facility]ETTER GRAY ROB Unavailable Unavailable [facility] Un[facility] Un[facility], [facility] KEVIN BURGESS HARVEY, Unavailable Unavailable KEVIN [facility], Unavailable Unavailable [facility] Unavailable Unavailable [facility], [facility] KROOT NACHO, KROOT NACHO Unavailable Unavailable ALHAJI EWING, Unavailable Unavailable ALHAJI EWING [facility] Unavailable Unavailable SERVICES, [facility] Unavailable Unavailable DEPARTMENT, [facility] DEPARTMENT JASMIN SANON, Unavailable Unavailable JASMIN SANON JOE A, Unavailable Unavailable NAIMA DAVIS PETTEY JAM, PETTEY Unavailable Unavailable JAM RADHA JEA, RADHA Unavailable Unavailable JEA [id number], Unavailable Unavailable [id number] Unavailable Unavailable DEPARTME, [facility] Unavailable Unavailable [facility]ME, [facility] Unavailable Unavailable DEPARTMENT, [facility] Unavailable Unavailable SAULO KHAN, Unavailable Unavailable SAULO OLVERA SOKAN BAB, SOKAN BAB Unavailable Unavailable SOKAN, CHEKO O, Unavailable Unavailable SOKAN, CHEKO O [facility], [facility] DEXTER III, SHANELLE, Unavailable Unavailable DEXTER III, SHANELLE Purpose Continuity of Care Document - 10-31-2007 through 2016 Problems Code Diagnosis DOS Provider Status [id number] MYOPIA 03-09-2017 AWOSIKA BILATERAL [id number] UNSPECIFIED 03-09-2017 AWOSIKA ASTIGMATISM BILATERAL [id number] ENCOUNTER 08-17-2016 [facility] PROJECT MANAGEMENT EXAM [facility] W/O DEPT. ABNORMAL FIND Z3044 ENCOUNTR 08-17-2016 [facility] O900 DISRUPTION 04-30-2016 [facility] DELIV[facility] PHYS WOUND 2662 OTHER 12-07-2011 [facility] B-COMPLEX [facility] HEALTH DEFICIENCIE DEPARTME S V2541 SURVEILLANC 12-07-2011 [facility] E PREV CO HEALTH PRESCRIBED DEPARTME CONTRACEPT PILL 5999 UNSPECIFIED 11-04-2011 GAYATHRI MARSHALL DISORDER OF URETHRA&URI NARY TRACT 76940 RETINAL 11-02-2011 AWOSIKA ABEL NERVE FIBER BUNDLE DEFECTS 3671 MYOPIA 11-02-2011 AWOSIKA ABEL 62530 OTHER 11-02-2011 AWOSIKA ABEL CHRONIC ALLERGIC CONJUNCTIVI TIS 6264 IRREGULAR 08-04-2011 [facility] CYCLE DEPARTME 14912 HORDEOLUM 06-29-2011 [facility] 34537 PAINFUL 06-29-2011 [facility] RESP[facility]ATION [facility] 92484 OTHER CHEST 06-29-2011 [facility] V7231 ROUTINE 06-27-2011 [facility] AL DEPARTME EXAMINATION 4619 ACUTE 04-11-2011 ARNOLD MARSHALL SINUSITIS, UNSPECIFIED 8470 NECK SPRAIN 04-02-2011 [facility] AND STRAIN [facility]ERG[facility]Y SERVICES 71817 CONTUSION 12-10-2010 [facility] 49730 PAIN IN 12-09-2010 GAYATHRI OLIVARES JOINT, LOWER LEG 8449 SPRAIN&STRA 12-02-2010 [facility] IN OF [facility] UNSPECIFIED INC SITE OF KNEE&LEG 88490 REGULAR 08-20-2010 [facility] 66612 ABDOMINAL 05-12-2010 [facility], MEDICAL UNSPECIFIED IMAGING ASS SITE 29039 ABDOMINAL 05-12-2010 [facility] PAIN, EMERGENCY GENERALIZED SERVICES ASSOCIATES 21535 UNSPECIFIED 04-27-2010 GAYATHRI INFECTIVE SUNDEEP Bal OTITIS EXTERNA 4660 ACUTE 02-20-2010 GAYATHRI, BRONCHITIS SUNDEEP W 77929 ASTHMA 10-25-2009 [facility] UNSPECIFIED [facility]ERGENCY WITH SERVICES EXACERBATIO ASSOCIATES N 96716 ASTHMA, 09-17-2009 [facility] UNSPECIFIED EMERGENCY , SERVICES UNSPECIFIED ASSOCIATES STATUS 7862 COUGH 09-17-2009 [facility] 5110 PLEURISY 07-10-2009 [facility] WITHOUT EMERGENCY MENTION SERVICES EFFUS/CURRE ASSOCIATES NT TB 514 PULMONARY 07-10-2009 [facility] HYPOSTASIS [facility]OCIATES V720 EXAMINATION 06-04-2009 MARQUIS Valdez OF EYES RUFINA OD AND VISION V2503 ENCOUNTER 05-22-2009 [facility] EMERGENCY HEALTH CONTRACEPT CENTRAL CNSL&PRESCR BANK ACCT IPTION 9595 INJURY 05-01-2009 DAVIS, OTHER AND NAIMA A UNSPECIFIED FINGER 50240 PAIN IN 04-29-2009 [facility] JOINT, EMERGENCY FOREARM SERVICES ASSOCIATES 47549 OTHER HAND 04-29-2009 [facility] SPRAIN AND [facility]ICAL STRAIN [facility] E8498 OTHER 04-29-[address] OF IMAGING OCCURRENCE ASSOCIATES E9170 STRIKE 04-29-2009 [facility] AGNST/STRUC MEDICAL K ACC IMAGING SPORTS W/O ASSOCIATES SUBSQT FALL 62602 LUMP OR 01-13-2009 [facility] MASS IN MEDICAL BREAST IMAG[facility] 4779 ALLERGIC 12-27-2008 DAVIS, RHINITIS NAIMA A CAUSE UNSPECIFIED 4640 ACUTE 12-10-2008 RYAN LARYNGITIS NAIMA A 90599 COUGH 07-16-2008 [facility] ASTHMA INTERNAL MED 59557 OTHER 07-07-2008 [place] [place] [address] UNSPECIFIED 07-02-2008 [facility] RESPIRATORY INTERNAL MED ABNORMALITY 09815 ABDOMINAL 06-19-2008 [place] PA[facility], MEDICAL EPIGASTRIC IMAGING ASSOCIATES 72450 CHEST PAIN 06-14-2008 [facility] PROF SERV 5118 PLEURISY 10-31-2007 [facility] W/OTH SPEC [facility] FORMS EFFUS INC NO TUBERCULOUS 7931 NONSPEC 10-31-2007 [facility] EXAM IMAGING BODY STRUCT ASSOCIATES [...] ia de te s n re d VE 00 06 07 18 30 00 KR Ac NT 17 -1 -2 .0 00 OG ti OL 30 9- 1- 00 06 ER ve IN 68 20 20 54 22 17 17 87 PH HF 0 21 AR A M 90 L- 76 MC 7 G IN MILLER LE R FL 65 06 07 30 30 00 KR Ac UO 86 -1 -0 .0 00 OG ti XE 20 6- 7- 00 06 ER ve TI 19 20 20 52 NE 29 17 17 50 PH 9 06 AR HC M L L- 10 76 7 MG CA PS UL E NU 00 06 07 1. 28 00 KR Ac VA 05 -1 -0 00 00 OG ti RI 20 5- 7- 0 06 ER ve NG 27 20 20 51 30 17 17 96 PH VA 3 84 AR GI M NA L- L 76 RI 7 NG PH 51 05 06 6. 2 00 WA Ac EN 29 -2 -2 00 00 L- ti AZ 30 5- 3- 0 07 MA ve OP 81 20 20 88 RT YR 10 17 17 62 ID 1 90 PH IN AR E MA 20 CY 0 MG #1 56 TA 9 B NI 47 05 06 14 7 00 WA Ac TR 78 -2 -2 .0 00 L- ti OF 10 5- 3- 00 07 MA ve UR 30 20 20 88 RT AN 30 17 17 62 TO 1 89 PH IN AR MA MO CY NO -M #1 CR 56 9 10 0 MG NU 00 05 06 1. 28 00 KR Ac VA 05 -1 -0 00 00 OG ti RI 20 8- 9- 0 06 ER ve NG 27 20 20 51 30 17 17 96 PH VA 3 84 AR GI M NA L- L 76 RI 7 NG FL 65 04 05 30 30 00 [...] IN MILLER LE R FL 65 03 04 30 30 00 KR Ac UO 86 -3 -2 .0 00 OG ti XE 20 1- 1- 06 ER ve TI 19 20 20 52 NE 29 17 17 50 PH 9 06 AR HC M L L- 10 76 7 MG CA PS UL E NU 00 03 04 1. 28 00 KR Ac VA 00 00 OG ti RI 20 2- [...] 1. 28 00 KR Ac VA 05 2 -1 00 00 OG ti RI 20 4- 7- 0 06 ER ve NG 27 20 20 51 30 17 17 96 PH VA 3 84 AR GI M NA L- L 76 RI 7 NG VE 00 02 02 18 30 00 KR Ac NT 17 -0 -2 .0 00 OG ti OL 30 3- 4- 00 06 ER ve IN 68 20 20 52 22 17 17 50 PH HF 0 05 AR A M 90 L- 76 MC 7 G IN MILLER LE R FL 65 02 02 30 30 00 KR Ac UO 86 -0 -2 .0 00 OG ti XE 20 3- 4- 00 06 ER ve TI 19 20 20 52 NE 29 17 17 50 PH 9 06 AR HC M L L- 10 76 7 MG CA PS UL E NU 00 01 02 1. 28 00 [...] CY OI NT NT HI AN A LO 45 07 09 5 30 30 EA 23 AR Ac RA 80 -1 -[address] 29 NO ti TA 20 3- 8- 00 SI 23 LD ve DI 65 20 20 DE NE 08 11 11 RI 7 PH CH 10 AR AR MA D MG CY W TA OF BL ET CY NT HI AN A 59 10 09 [...] OF ET CY NT HI AN A AZ 00 12 02 1 [...] ET NT HI AN A ME 00 12 02 1 21 6 EA 20 AR Ac TH 78 -2 -[address] 55 NO ti YL 15 7- 3- 00 SI 03 LD ve CO 02 20 20 DE ED 20 10 11 RI NI 7 PH CH SO AR AR LO MA D NE CY W 4 OF MG CY DO NT SE HI PK AN A LO 45 12 02 5 30 30 EA 20 AR Ac RA 80 -2 -[address] 55 NO ti TA 20 7- 3- 00 SI 02 LD ve DI 65 20 20 DE NE 08 10 11 RI 7 PH CH 10 AR AR MA D MG CY W TA OF BL ET CY NT HI AN A 59 10 02 2 8. 25 EA 19 AR Ac 31 -0 -[address] 42 NO ti 00 5- 3- 0 SI 17 LD ve 57 20 20 DE 92 10 11 RI 0 PH CH AR AR MA D CY W OF CY NT HI AN A IB 53 [...] ET CY NT HI AN A AZ 00 12 12 1 [...] ET NT HI AN A ME 00 12 12 1 21 6 EA 20 AR Ac TH 78 -2 -[address] 55 NO ti YL 15 7- 7- 00 SI 03 LD ve CO 02 20 20 DE ED 20 10 10 RI NI 7 PH CH SO AR AR LO MA D NE CY W 4 OF MG CY DO NT SE HI PK AN A LO 45 12 12 5 [...] 3- 5- 00 SI 19 LD ve CO 02 20 20 DE ED 20 10 [...] 8- 7- 00 SI 82 Av ve CO 50 20 20 DE ai AM 91 [...] 20 20 DE LI 30 10 10 VA N 5 PH CH 50 AR AE [...] 8- 4- 00 SI 82 Av ve CO 00 20 20 DE ai AM 70 [...] 0 7. 10 EA 18 AR Ac CO 06 -1 -[address] 33 NO [...] 8- 6- 00 SI 82 Av ve CO 00 20 20 DE ai AM 70 [...] 2- 2- 00 SI 97 Av ve CO 34 20 20 DE ai AM 40 10 10 la 5 PH bl HB AR e R MA 40 CY MG OF TA CY BL NT ET HI AN A ME 00 05 05 0 21 6 EA 17 GA Ac TH 78 -0 -[address] 43 IN ti YL 15 2- 2- 00 SI 20 EY ve CO 02 20 20 DE ED 20 10 10 VA NI 7 PH CH SO AR AE LO MA L NE CY S 4 OF MG CY DO NT SE HI PK AN A AZ 00 05 05 0 6. 5 EA 17 GA Ac IT 09 -0 -[address] 43 IN ti HR 37 2- 2- 0 SI 21 EY ve OM 14 20 20 DE YC 61 10 10 VA IN 8 PH CH AR AE 25 [...] 2- 3- 00 SI 97 Av ve CO 34 20 20 DE ai AM 40 [...] 2- 2- 00 S 00 Av ve CO 34 20 20 PH 9 ai AM [...] ET NT HI AN A CI 55 02 02 00 15 15 DE 63 No Ac TA 11 -0 -1 .0 AN 90 t ti LO 10 2- 1- 00 S 86 Av ve CO 34 20 20 PH 0 ai AM 40 10 10 AR la 5 MA bl HB CY e R 40 MG TA BL ET ME 00 01 02 00 21 6 EA 16 AR Ac TH 78 -2 -[address] 08 NO ti YL 15 3- 1- 00 SI 19 LD ve CO 02 20 20 DE ED 20 10 10 RI NI 7 PH CH SO AR AR LO MA D NE CY W 4 OF MG CY NT DO HI SE AN PK A AZ 00 01 02 00 6. 5 [...] CY BL NT ET HI AN A CO 00 01 01 00 10 5 EA [...] 8- 4- 00 S 35 Av ve CO 34 20 20 PH 4 ai AM [...] ET NT HI AN A ME 00 12 12 00 21 6 RI 81 GA Ac TH 60 -0 -1 .0 TE 16 IN ti YL 34 3- 7- 00 42 EY ve CO 59 20 20 AI ED 31 09 09 D VA NI 5 PH CH SO AR AE LO M L NE #3 S 4 93 8 MG DO SE PK AZ 59 12 12 00 6. 5 RI 81 GA Ac IT 76 -0 -1 00 TE 16 IN ti HR 23 3- 7- 0 43 EY ve OM 06 20 20 AI YC 00 09 09 D VA IN 1 PH CH AR AE 25 M L 0 #3 S MG 93 8 TA BL ET CI 55 12 12 00 15 15 DE 63 No Ac TA 11 -0 -1 .0 AN 88 t ti LO 10 8- 7- 00 S 35 Av ve CO 34 20 20 PH 4 ai AM [...] 0- 9- 00 S 05 Av ve CO 34 20 20 PH 3 ai AM [...] 20 20 DE YC 61 09 09 VA IN 8 PH CH AR AE 25 MA L 0 CY S MG OF TA CY BL NT ET HI AN A ME 00 09 10 00 21 6 EA 14 GA Ac TH 78 -2 -[address] 43 IN ti YL 15 6- 8- 00 SI 34 EY ve CO 02 20 20 DE ED 20 09 09 VA NI 7 PH CH SO AR AE [...] NT E HI AN A LO 60 11 12 [...] NT HI AN A LO 60 08 11 [...] CY NT HI AN A LO 60 01 03 [...] 6. 5 EA 96 No Ac IT 00 ST 40 t ti HR 37 7- 5- 0 SI 22 Av ve OM 14 20 20 DE ai YC 61 08 08 la IN 8 PH bl AR e 25 MA 0 CY MG OF TA CY BL NT ET HI AN A Procedures Procedure DOS Code Location Performer Comment OPHTH 50611 [facility] Healthcare[facility]IN[facility] Healthcare[facility] MEDICAL 7 XM&EVAL COMPRHNSV ESTAB PT 1/> DETERMINA 94860 TOMMY AWOSIKA TION 2 ABEL ABEL REFRACTIV E STATE FUNDUS 75473 TOMMY CARNEYOSIKA PHOTOGRAP 2 ABEL ABEL HY W/INTERPR ETATION & REPORT RX&FITG 87587 ANGELIKAVINH Alignment HealthcareOS[facility] C-LENS 2 ABEL ABEL SUPVJ CRNL LENS OU XCPT APHK CONTRACEP S4993 [facility] TIVE 1 [facility] DEPARTME DEPARTME CONTROL RADIOLOGI 23753 [facility] S[facility] C EXAM 1 [facility] CHEST 2 INC INC VIEWS FRONTAL&L ATERAL BLOOD 47554 [facility] COUNT 1 [facility] COMPLETE INC INC AUTO&AUTO DIFRNTL WBC URNLS DIP 57711 [facility] 1 [facility] STICK/TAB INC [place] [address] [facility] INFUSION 1 [facility] THERAPY/P INC INC ROPHYLAXI S /DX 1ST TO 1 HR COMPREHEN 44330 [facility] SIVE 1 [facility] [place] [address] [facility] LIPASE 1 [facility] INC INC RADEX 30727 [facility] S[facility] RIBS UNI 1 [facility] W/POSTERO INC INC ANT CH MINIMUM 3 VIEWS CULTURE 75291 [facility] BACTERIAL 1 [facility] INC INC QUANTTATI VE COLONY COUNT URINE URINE 04656 [facility] 1 [facility] TEST INC INC VISUAL COLOR CMPRSN METHS IADNA 00857 JO[facility] NEISSERIA 1 CO CO HEALTH HEALTH GONORRHOE DEPARTMS DEPARTMS AE AMPLIFIED PROBE TQ CONTRACEP S4993 [facility] DOLW[facility] TIVE 1 CO CO P[facility] FOR [facility] DEPARTMS CONTROL IADNA 26314 [facility] CHLAMYDIA 1 CO CO HEALTH HEALTH TRACHOMAT DEPARTMS DEPARTMS IS AMPLIFIED PROBE TQ RADIOLOGI 48480 [facility] SANTI[facility] C 1 [facility] EXAMINATI INC INC ON NECK SOFT TISSUE URINE 89055 [facility] SANTI[facility] 1 [facility] TEST INC INC VISUAL COLOR CMPRSN METHS CONTRACEP S4993 [facility] TIVE 1 CO CO [facility] DEPARTMS CONTROL CONTRACEP S4993 [facility] TIVE 1 CO CO PILLS FOR [facility] CONTROL KNEE L1830 [facility] ORTHOSIS 1 IMMOBLIZE R CANVAS LONGTUDNL PREFAB RADIOLOGI 29686 [facility] Bateman 1 [facility] EXAMINATI INC INC ON KNEE 3 VIEWS FITTING 80820 [facility] MAY SPECTACLE 0 ASSOCIATE DEEJAY Rodriguez XCPT S APHAKIA MONOFOCAL 1 VISN V2104 [facility] MAY PLANO-+/- 0 ASSOCIATE DEEJAY 4.00D S SPHER 2.12-4.00 D CYL EA FRAMES V2020 [facility] MAY PURCHASES 0 ASSOCIATE DEEJAY Rodriguez DETERMINA 90925 [facility] MAY TION 0 ASSOCIATE VILLALBA REFRACTIV S E STATE OPHTH 41395 [facility] MAY MEDICAL 0 ASSOCIATE DEEJAY VILLAR&EVAL Jennifer COMPRHNSV ESTAB PT 1/> IADNA 79521 [facility] NEISSERIA 0 CO CO HEALTH HEALTH GONORRHOE DEPARTMS DEPARTMS AE AMPLIFIED PROBE TQ IADNA 94008 [facility] CHLAMYDIA 0 CO CO HEALTH HEALTH TRACHOMAT DEPARTMS DEPARTME IS AMPLIFIED PROBE TQ CONTRACEP S4993 [facility] TIVE 0 CO CO [facility] FOR [facility] [place] [address] [facility] SANTIAG[facility] INFUSION 0 [facility] THERAPY/P INC INC ROPHYLAXI S /DX 1ST TO 1 HR BLOOD 96364 [facility] SANTI[facility] COUNT 0 [facility] COMPLETE INC INC AUTO&AUTO DIFRNTL WBC URNLS DIP 64790 [facility]ANTI[facility] 0 [facility] STICK/TAB INC INC LET REAGENT AUTO MICROSCOP Y URINE 04912 [facility] 0 [facility] TEST INC INC VISUAL COLOR CMPRSN METHS CT PELVIS 58984 [facility] S[facility] W/O 0 [facility] CONTRAST INC INC MATERIAL 3D 55924 [facility] S[facility] RENDERING 0 [facility] INC INC W/INTERP& [place] [address] [facility] S[facility] ABDOMEN 0 [facility] W/[place] [address] P[facility] AMYLASE 0 [facility] INC INC COMPREHEN 73262 [facility] SIVE 0 [facility] [address] [facility] SANTI[facility] LIPASE 0 [facility] INC INC CONTRACEP S4993 [facility] TIVE 0 CO [facility] CONTROL T T URNLS DIP 59755 [facility] SANTIAGO 0 [facility] STICK/TAB INC INC [place] [address] [facility] SANTIAG[facility] STREPTOCO 0 [facility] CCUS INC INC GROUP A URINE 98288 [facility] SANTIAGO 0 [facility] TEST INC INC VISUAL COLOR CMPRSN METHS URINE 96959 [facility] SANTIAGO 9 [facility] TEST INC INC VISUAL COLOR CMPRSN METHS URNLS DIP 16632 [facility] SANTIAGO 9 [facility] STICK/TAB INC INC LET REAGENT AUTO MICROSCOP Y RADIOLOGI 64436 PAMELAGAUTAM SANTIAGO C EXAM 9 [facility] CHEST 2 INC INC VIEWS FRONTAL&L ATERAL CONTRACEP S4993 [facility] TIVE 9 [facility]ALTH [facility] ACCT DEPARTMEN CONTROL T IAADI 57262 [facility] SANTIAG[facility] INFFLUENZ 9 [facility] A A VIRUS INC INC IAADI 03012 [facility] SANTIAG[facility] INFLUENZA 9 [facility] B VIRUS INC INC URINE 31340 [facility] SANTIAGO 9 [facility] TEST INC INC VISUAL COLOR CMPRSN METHS RADIOLOGI 59980 [facility] SANTIAGO C EXAM 9 [facility] CHEST 2 INC INC VIEWS FRONTAL&L ATERAL CONTRACEP S4993 [facility] JOSEY TIVE 9 HEALTH CO PILLS FOR [facility] BANK ACCT DEPARTMEN CONTROL T FRAMES V2020 MARQUIS OLVERA, PURCHASES 9 RUFINA Lopez OD DETERMINA 39278 ROLY ARVIZU 9 RUFINA Lopez REFRACTIV OD E STATE FITTING 91576 MARQUIS OLVERA SPECTACLE 9 RUFINA Lopez S XCPT OD APHAKIA MONOFOCAL OPHTH 45312 MARQUIS OLVERA, MEDICAL 9 RUFINA SAULO T XM&EVAL OD COMPRHNSV ESTAB PT 1/> 1 VISN V2104 MARQUIS OLVERA, PLANO-+/- 9 RUFINA VERNON T 4.00D OD SPHER 2.12-4.00 D CYL EA CONTRACEP S4993 DHS/CO DEBO CO TIVE 9 HEALTH HEALTH PILLS FOR [facility] ACCT T CONTROL URINE 63364 [facility] SANTIAGO 9 [facility] TEST INC INC VISUAL COLOR CMPRSN METHS RADEX 05897 YEE ANGELICA, WRIST 9 MEDICAL SHAH[facility] COMPLETE IMAGING MINIMUM 3 ASSOCIATE VIEWS S RADEX 48349 [facility] SANTAIGO FINGR 9 [facility] MINIMUM 2 INC INC VIEWS US BREAST 64926 YEE SANON, REAL 9 MEDICAL JASMIN P TIME IMAGING W/IMAGE ASSOCIATE DOCUMENTA S TION DETER 21458 [facility] SANTIAGO AIRWY 8 [facility] CLOSING INC INC VOL 1 BRTH TSTS BRNCDILAT 97686 MALLORY KENDALLSE 8 [facility] PRE&POST- PROF SERV BRNCDILAT ADMN PRESSURIZ 82846 PAMELA SANTIAGO ED/NONPRE 8 [facility] HOSP SSURIZED INC INC INHALATIO N TREATMENT DETER 92969 PAMELA SANTIAGO MALDISTRI 8 [facility] BJ OF INC INC INSPIRED GAS N WSHOT CURVE FUNCTIONA 20320 Ricardo KENDALL 8 [facility] RESIDUAL HOSPITAL [place]AC[place] [address] YEE MARTINESLEY, ABDOMINAL 8 MEDICAL JASMIN P REAL IMAGING TIME ASSOCIATE W/IMAGE S LIMITED RADEX 19575 YEE ANGELICA, UPPER GI 8 MEDICAL SHAHAB W/WO IMAGING GLUCAGON/ ASSOCIATE DELAY S IMAGES W/KUB RADIOLOGI 65786 PAMELA SANTIAGO C EXAM 8 [facility] HOSP CHEST 2 INC INC VIEWS FRONTAL&L ATERAL ECG 08387 PAMELA SANTIAGO ROUTINE 8 [facility] ECG INC INC W/LEAST 12 LDS TRCG ONLY W/O I&R ECG 84234 PAMELA EWING, ROUTINE 8 [facility] W/LEAST PROF SERV 12 LDS I&R ONLY OPHTH 54428 MARQUIS OLVERA, MEDICAL 8 RUFINA Lopez XM&EVAL OD COMPRHNSV ESTAB PT 1/> 1 VISN V2103 MARQUIS OLVERA, PLANO 8 RUFINA Lopez TO+/-4.00 OD D SPHER 0.12-2.00 D CYL EA FITTING 42709 MARQUIS OLVERA, SPECTACLE 8 RUFINA Lopez S XCPT OD APHAKIA MONOFOCAL FRAMES V2020 MARQUIS OLVERA, PURCHASES 8 RUFINA Lopez OD DETERMINA 76087 MARQUIS OLVERA TION 8 RUFINA Lopez REFRACTIV OD E STATE BASIC 15893 [facility] SANTIAGO METABOLIC 8 [facility] PANEL INC INC CALCIUM TOTAL URINE 89653 [facility] SANTIAGO 8 [facility] TEST INC INC VISUAL COLOR CMPRSN METHS 3D 59029 [facility] SANTIAGO RENDERING 8 [facility] INC INC W/INTERP& POSTPROC DIFF WORK STATION BLOOD 45208 P[facility]A SANTIAGO COUNT 8 [facility] COMPLETE INC INC AUTO&AUTO DIFRNTL WBC CT THORAX 17176 YEE DOMINGUEZ, W/O 8 MEDICAL SHAHAB CONTRAST [place] [address] P[facility]ELA SANTIAGO TROPONIN 8 [facility]OSP QUANTITAT INC INC SHILPI FIBRIN 40868 PAMELA SANTIAGO DGRADJ 8 [facility] HOSP PRODUCTS INC INC D-DIMER QUAL/SEMI VENICE CREATINE 33469 PAMELA SANTIAGO KINASE MB 8 [facility]OSP FRACTION INC INC ONLY SEDIMENTA 08721 PAMELA SANTIAGO TION RATE 8 [facility] RBC INC INC NON-AUTOM ATED CREATINE 82452 PAMELA SANTIAGO KINASE 8 [facility] TOTAL INC INC RADIOLOGI 21134 PAMELA SANTIAGO C EXAM 8 [facility]OSP CHEST 2 INC INC VIEWS FRONTAL&L ATERAL Encounters Encounter Start End Date Code Location Performer Type Date PERIODIC 18072 ABIGAIL HAYES PREVENTIV 6 6 [facility] PATIENT DEPT. DEPT. 18-39 YRS EMERGENCY 34185 [facility] 6 6 ELISA A [facility] EMERGENCY T VISIT PHYS HIGH/URGE NT SEVERITY OFFICE 48704 [facility]Y DOW[facility] OUTPATIEN 2 2 CO CO T VISIT HEALTH HEALTH [address] [facility] DEPARTME MINUTES OFFICE 11672 GAYATHRI TRINH OUTPATIEN 2 2 MARSHALL MARSHALL T VISIT 15 MINUTES OFFICE 74024 AWOSIKA AWOSIKA OUTPATIEN 2 2 ABEL ABEL T NEW 30 MINUTES OFFICE 04895 JOSEY HATHAWAYPATIEN 1 1 CO CO T VISIT [facility] [address] [facility] DEPARTMS MINUTES [facility] T EMERGENCY 34831 ARIN WEAVER NACHO 1 1 EMERGENCY DEPARTMEN SERVICES T VISIT HIGH/URGE NT SEVERITY PERIODIC 23809 JOSEY DOWLING PREVENTIV 1 1 CO CO E MED EST HEALTH HEALTH PATIENT DEPARTME DEPARTMS 18-39 YRS OFFICE 98487 GAYATHRI TRINH OUTJOHNEN 1 1 MARSHALL MARSHALL T VISIT 15 MINUTES EMERGENCY 86105 [facility] 1 1 [facility] DE[facility] T VISIT LOW/MODER SEVERITY [facility] OUT[facility] T EMERGENCY 24875 ARIN FRANCOIS NANCY 1 1 EMERGENCY DEPARTMEN SERVICES T VISIT HIGH/URGE NT SEVERITY OFFICE 09069 JOSEY HATHAWAYPATIEN 1 1 CO CO T VISIT HEALTH HEALTH 10 DEPARTMS DEPARTMS MINUTES OFFICE 07368 JOSEY HATHAWAYPATIEN 1 1 CO CO T VISIT HEALTH HEALTH 10 DEPARTMS DEPARTMS MINUTES OFFICE 93758 [facility] PETTEY CONSULTAT 1 1 PHYSICIAN SANDRA ALFARO NEW/ESTAB PATIENT 60 MIN OFFICE 68083 GAYATHRI MARTINEN 1 1 MARSHALL MARSHALL T VISIT 15 MINUTES EMERGENCY 26479 ARIN BRIGGS 1 1 EMERGENCY DEPARTMEN SERVICES T VISIT HIGH/URGE NT SEVERITY [facility] OUTPATI[facility] INC T EMERGENCY 10847 [facility] 1 1 [facility] DEPARTMEN INC T VISIT LOW/MODER SEVERITY PERIODIC 39888 JOSEY DOWLING PREVENTIV 0 0 CO CO E MED EST HEALTH HEALTH PATIENT DEPARTME DEPARTME -17YRS [facility] OUTPATIEN INC T EMERGENCY 36711 [facility] 0 0 [facility] DEPARTMEN INC T VISIT HIGH/URGE NT SEVERITY EMERGENCY 63876 DAVID GAGE 0 0 EMERGENCY [facility] VISIT SERVICES HIGH SEVERITY& ASSOCIATE THREAT S FUNCJ OFFICE 25487 GAYATHRI TRINH OUTPATIEN 0 0 SUNDEEP Bal T VISIT 15 MINUTES OFFICE 91696 JOSEY VELÁZQUEZ 0 0 CO CO T VISIT [facility] 10 DEPARTMEN DEPARTMEN MINUTES T T OFFICE 27106 GAYATHRI TRINH OUTPATIEN 0 0 SUNDEEP Bal T VISIT 15 MINUTES OFFICE 97416 GAYATHRI TRINH OUTPATIEN 0 0 SUNDEEP Bal T VISIT 15 MINUTES EMERGENCY 31384 ARIN LEDBETTER, 0 0 EMERGENCY [facility] DEPARTMEN SERVICES T VISIT HIGH/URGE ASSOCIATE NT S SEVERITY EMERGENCY 09462 [facility] 0 0 [facility] DEPARTMEN INC T VISIT MODERATE SEVERITY [facility] 0 [facility] OUTPATIEN INC T EMERGENCY 39668 ARIN RENTERIA 0 0 EMERGENCY III, DEPARTMEN SERVICES SHANELLE T VISIT HIGH/URGE ASSOCIATE NT S SEVERITY [facility] OUTPATIEN INC T EMERGENCY 36850 [facility] 9 9 [facility] DEPARTMEN INC T VISIT LOW/MODER SEVERITY [facility] 9 9 [facility] OUTPATIEN INC T EMERGENCY 83348 ARIN LEDBETTER, 9 9 EMERGENCY [facility] DEPARTMEN SERVICES T VISIT HIGH/URGE ASSOCIATE NT S SEVERITY OFFICE 30630 [facility] JOSEY VELÁZQUEZ 9 9 HEALTH CO T VISIT [facility] 10 BANK ACCT DEPARTMEN MINUTES T OFFICE 29612 RYAN DAVIS OUTPATIEN 9 9 NAIMA A NAIMA A T VISIT 15 MINUTES EMERGENCY 48886 ARIN LEDBETTER 9 9 EMERGENCY NITIN S DEPARTMEN SERVICES T VISIT HIGH/URGE ASSOCIATE NT S SEVERITY [facility] 9 9 [facility] OUTPATIEN INC T EMERGENCY 00185 [facility] 9 9 [facility] DEPARTMEN INC T VISIT MODERATE SEVERITY PERIODIC 16935 DHS/CO [place] PREVENTIV 9 9 HEALTH CO E MED EST [facility] PATIENT BANK ACCT DEPARTMEN 12-17YRS T OFFICE 96467 DHS/CO DEBO CO OUTPATIEN 9 9 HEALTH HEALTH T NEW 10 CENTRAL DEPARTMEN MINUTES BANK ACCT T OFFICE 23117 RYAN DAVIS OUTPATIEN 9 9 NAIMA A NAIMA A T VISIT 15 MINUTES EMERGENCY 21072 [facility] 9 9 [facility] DEPARTMEN INC T VISIT LOW/MODER SEVERITY [facility]OSPITAL [facility] - 9 9 [facility] OUTPATIEN INC T EMERGENCY 85733 ARIN HATFIELD, 9 9 EMERGENCY [place] DEPARTMEN SERVICES O T VISIT MODERATE ASSOCIATE SEVERITY S HOSPITAL [facility] - 9 9 [facility] OUTPATIEN INC T OFFICE 45329 DHS/CO [place] OUTPATIEN 9 9 HEALTH CO T VISIT [facility] 15 BANK ACCT DEPARTMEN MINUTES T OFFICE 07473 RYAN DAVIS OUTPATIEN 9 9 NAIMA A NAIMA A T VISIT 15 MINUTES OFFICE 60406 RYAN DAVIS OUTPATIEN 9 9 NAIMA A NAIMA A T VISIT 15 MINUTES OFFICE 27717 MELANIA CLAIRE 8 8 [facility] K[facility] T VISIT INTERNAL 15 MED MINUTES HOSPITAL [facility] - 8 8 [facility] OUTPATIEN INC T OFFICE 13293 MELANIA CLAIRE 8 8 [facility] KEVIN T VISIT INTERNAL 15 MED MINUTES HOSPITAL [facility] - 8 8 [facility] OUTPATIEN INC T OFFICE 91574 RYAN DAVIS OUTPATIEN 8 8 NAIMA A NAIMA A T VISIT 15 MINUTES OFFICE 14646 RYAN DAVIS OUTPATIEN 8 8 NAIMA A NAIMA A T VISIT 15 MINUTES HOSPITAL [facility] - 8 8 [facility] OUTPATIEN INC T OFFICE 04117 RYAN DAVIS OUTPATIEN 8 8 NAIMA A NAIMA A T VISIT 15 MINUTES OFFICE 72225 RYAN DAVIS OUTPATIEN 8 8 NAIMA A NAIMA A T VISIT 15 MINUTES OFFICE 42472 RYAN DAVIS OUTPATIEN 8 8 NAIMA A NAIMA A T VISIT 15 MINUTES OFFICE 17650 RYAN DAVIS OUTPATIEN 8 8 NAIMA A NAIMA A T VISIT 15 MINUTES HOSPITAL [facility] - 8 8 [facility] OUTPATIEN INC T EMERGENCY 68162 [facility]A 8 8 [facility] INC T VISIT MODERATE SEVERITY
--- OUTSIDE RECORDS SUMMARY | 2017-05-16 14:53 | External Medical Summary Rpt ---
Author Author , ROBERT Downing ROBERT Address Unknown Phone [email or web address] Care Team Providers Care Travel Freight And Passenger Agent Name Role Phone GAYATHRI OLIVARES, GAYATHRI Unavailable Unavailable MARSHALL ARNOLD MARSHALL, ARNOLD Unavailable Unavailable MARSHALL SUNDEEP TRINH W, Unavailable Unavailable GAYATHRI, SUNDEEP W AWOSIKA, AWOSIKA Unavailable Unavailable AWOSIKA, AWOSIKA Unavailable Unavailable AWOSIKA ABEL, AWOSIKA Unavailable Unavailable ABEL AWOSIKA ABEL, AWOSIKA Unavailable Unavailable ABEL [facility] Unavailable Unavailable HEALTH C, [facility] SHAHAB DOMINGUEZ, Unavailable Unavailable SHAHAB DOMINGUEZ [facility] Un[facility] Unavailable [facility]Y [facility], [facility]available Unavailable [facility] [place] [facility] [place] [place] Unavailable Unavailable [facility] Unavailable Unavailable [facility] Unavailable Unavailable DEPT., [facility] DE[facility]. [facility] Unavailable Unavailable DEPT., [facility]. NITIN LEDBETTER, Unavailable Unavailable NITIN LEDBETTER GRAY ROB Unavailable Unavailable [facility] Unavailable Unavailable [facility], [facility] KEVIN BURGESS HARVEY, Unavailable Unavailable KEVIN [facility], Unavailable Unavailable [facility] Unavailable Unavailable [facility], [facility] KROOT NACHO, KROOT NACHO Unavailable Unavailable ALHAJI EWING, Unavailable Unavailable ALHAJI EWING [facility] Unavailable Unavailable SERVICES, [facility] Unavailable Unavailable DEPARTMENT, [facility] DEPARTMENT JASMIN SANON, Unavailable Unavailable JASMIN SANON JOE A, Unavailable Unavailable NAIMA DAVIS PETTEY JAM, PETTEY Unavailable Unavailable JAM RADHA JEA, RADHA Unavailable Unavailable JEA [id number], Unavailable Unavailable [id number] Unavailable Unavailable DE[facility]ME, [facility] Unavailable Unavailable DEPARTME, [facility] Unavailable Unavailable DEPARTMENT, [facility] MAY SAEED Unavailable Unavailable SAULO KHAN, Unavailable Unavailable SAULO OLVERA SOKAN BAB, SOKAN BAB Unavailable Unavailable SOKAN, CHEKO O, Unavailable Unavailable SOKAN, CHEKO O [facility] DEXTER III, SHANELLE, Unavailable Unavailable DEXTER III, SHANELLE Purpose Continuity of Care Document - 10-31-2007 through 2016 Problems Code Diagnosis DOS Provider Status [id number] MYOPIA 03-09-2017 AWOSIKA BILATERAL [id number] UNSPECIFIED 03-09-2017 AWOSIKA ASTIGMATISM BILATERAL [id number] ENCOUNTER 08-17-2016 [facility] AP[facility] SPEC EXAM [facility] W/O DEPT. ABNORMAL FIND Z3044 ENCOUNTR 08-17-2016 [facility] O900 DISRUPTION 04-30-2016 [facility] WOUND 2662 OTHER 12-07-2011 JOSEY B-COMPLEX CO HEALTH DEFICIENCIE DEPARTME S V2541 SURVEILLANC 12-07-2011 [facility] E PREV CO HEALTH PRESCRIBED DEPARTME CONTRACEPT PILL 5999 UNSPECIFIED 11-04-2011 GAYATHRI MARSHALL DISORDER OF URETHRA&URI NARY TRACT 92905 RETINAL 11-02-2011 AWOSIKA ABEL NERVE FIBER BUNDLE DEFECTS 3671 MYOPIA 11-02-2011 AWOSIKA ABEL 61990 OTHER 11-02-2011 AWOSIKA ABEL CHRONIC ALLERGIC CONJUNCTIVI TIS 6264 IRREGULAR 08-04-2011 [facility] MENSTRUAL [place] [facility] CYCLE DEPARTME 42747 HORDEOLUM 06-29-2011 [facility] EXTERNUM [facility]ERG[facility]Y SERVICES 82342 PAINFUL 06-29-2011 [facility] RESPIRATION [facility]ERGENCY SERVICES 71965 OTHER CHEST 06-29-2011 [facility] PAIN [facility] INC V7231 ROUTINE 06-27-2011 [facility] [place] [facility] AL DEPARTME EXAMINATION 4619 ACUTE 04-11-2011 ARNOLD MARSHALL SINUSITIS, UNSPECIFIED 8470 NECK SPRAIN 04-02-2011 [facility] AND STRAIN EMERGENCY SERVICES 80691 CONTUSION 12-10-2010 [facility] 64963 PAIN IN 12-09-2010 GAYATHRI OLIVARES JOINT, LOWER LEG 8449 SPRAIN&STRA 12-02-2010 [facility] IN OF [facility] UNSPECIFIED INC SITE OF KNEE&LEG 81485 REGULAR 08-20-2010 [facility] 27441 ABDOMINAL 05-12-2010 [place] [facility], MEDICAL UNSPECIFIED IMAGING ASS SITE 96288 ABDOMINAL 05-12-2010 [facility] PAIN, EMERGENCY GENERALIZED SERVICES ASSOCIATES 55193 UNSPECIFIED 04-27-2010 GAYATHRI INFECTIVE SUNDEEP Bal OTITIS EXTERNA 4660 ACUTE 02-20-2010 GAYATHRI, BRONCHITIS SUNDEEP W 12089 ASTHMA 10-25-2009 [facility] UNSPECIFIED [facility]ERGENCY WITH SERVICES EXACERBATIO ASSOCIATES N 41609 ASTHMA, 09-17-2009 [facility] UNSPECIFIED EMERGENCY , SERVICES UNSPECIFIED ASSOCIATES STATUS 7862 COUGH 09-17-2009 [facility] 5110 PLEURISY 07-10-2009 [facility] WITHOUT EMERGENCY MENTION SERVICES EFFUS/CURRE ASSOCIATES NT TB 514 PULMONARY 07-10-2009 [facility] HYPOSTASIS [facility] V720 EXAMINATION 06-04-2009 MARQUIS Valdez OF EYES RUFINA OD AND VISION V2503 ENCOUNTER 05-22-2009 DHS/CO EMERGENCY HEALTH CONTRACEPT CENTRAL CNSL&PRESCR BANK ACCT IPTION 9595 INJURY 05-01-2009 DAVIS, OTHER AND NAIMA A UNSPECIFIED FINGER 26282 PAIN IN 04-29-2009 [facility] JOINT, EMERGENCY FOREARM SERVICES ASSOCIATES 41690 OTHER HAND 04-29-2009 [facility] SPRAIN AND [facility] STRAIN [facility] E8498 OTHER 04-29-[address] OF IMAGING OCCURRENCE ASSOCIATES E9170 STRIKE 04-29-2009 [place] AGNST/STRUC MEDICAL K ACC IMAGING SPORTS W/O ASSOCIATES SUBSQT FALL 24926 LUMP OR 01-13-2009 [facility] MASS IN MEDICAL BREAST [facility] 4779 ALLERGIC 12-27-2008 DAVIS, RHINITIS NAIMA A CAUSE UNSPECIFIED 4640 ACUTE 12-10-2008 RYAN LARYNGITIS NAIMA A 00559 COUGH 07-16-2008 [facility] ASTHMA INTERNAL MED 37127 OTHER 07-07-2008 MARGARET DYSPNEA AND [facility] [place] [address] UNSPECIFIED 07-02-2008 [facility] INTERNAL MED ABNORMALITY 76569 ABDOMINAL 06-19-2008 [place] PA[facility], MEDICAL EPIGASTRIC IMAGING ASSOC[facility]ATES 96872 CHEST PAIN 06-14-2008 [facility] PROF SERV 5118 PLEURISY 10-31-2007 [facility] W/OTH SPEC [facility] FORMS EFFUS INC NO TUBERCULOUS 7931 NONSPEC 10-31-2007 [facility] MEDICAL OTH EXAM IMAGING BODY STRUCT ASSOCIATES [...] 7- 3- 00 SI 03 LD ve ID 02 20 20 DE ED 20 10 [...] 7- 7- 00 SI 03 LD ve ID 02 20 20 DE ED 20 10 [...] 3- 5- 00 SI 19 LD ve ID 02 20 20 DE ED 20 10 [...] 8- 7- 00 SI 82 Av ve ID 50 20 20 DE ai AM 91 [...] 8- 4- 00 SI 82 Av ve ID 00 20 20 DE ai AM 70 [...] 0 7. 10 EA 18 AR Ac ID 06 -1 -[address] 33 NO [...] 8- 6- 00 SI 82 Av ve ID 00 20 20 DE ai AM 70 [...] 2- 2- 00 SI 97 Av ve ID 34 20 20 DE ai AM 40 10 10 la 5 PH bl HB AR e R MA 40 CY MG OF TA CY BL NT ET HI AN A ME 00 05 05 0 21 6 EA 17 GA Ac TH 78 -0 -[address] 43 IN ti YL 15 2- 2- 00 SI 20 EY ve ID 02 20 20 DE ED 20 10 [...] 2- 3- 00 SI 97 Av ve ID 34 20 20 DE ai AM 40 [...] 2- 2- 00 S 00 Av ve ID 34 20 20 PH 9 ai AM [...] 2- 1- 00 S 86 Av ve ID 34 20 20 PH 0 ai AM 40 10 10 AR la 5 MA bl HB CY e R 40 MG TA BL ET ME 00 01 02 00 21 6 EA 16 AR Ac TH 78 -2 -[address] 08 NO ti YL 15 3- 1- 00 SI 19 LD ve ID 02 20 20 DE ED 20 10 [...] CY BL NT ET HI AN A ID 00 01 01 00 10 5 EA [...] 8- 4- 00 S 35 Av ve ID 34 20 20 PH 4 ai AM [...] 34 3- 7- 00 42 EY ve ID 59 20 20 AI ED 31 09 [...] 8- 7- 00 S 35 Av ve ID 34 20 20 PH 4 ai AM [...] 0- 9- 00 S 05 Av ve ID 34 20 20 PH 3 ai AM [...] 6- 8- 00 SI 34 EY ve ID 02 20 20 DE ED 20 09 [...] Procedure DOS Code Location Performer Comment OPHTH 87019 MAZVINH MAZOSIKA MEDICAL 7 XM&EVAL COMPRHNSV ESTAB PT 1/> DETERMINA 10201 TOMMY AWOSIKA TION 2 ABEL ABEL REFRACTIV E STATE FUNDUS 34055 TOMMY CARNEYOSIKA PHOTOGRAP 2 ABEL ABEL HY W/INTERPR ETATION & REPORT RX&FITG 34877 ANGELIKAVINH MAZOSIKA C-LENS 2 ABEL ABEL SUPVJ CRNL LENS OU XCPT APHK CONTRACEP S4993 JOSEY [facility] TIVE 1 CO CO [facility] FOR [facility] HEALTH DEPARTME DEPARTME CONTROL RADIOLOGI 48633 PAMELA SANTIAGO C EXAM 1 [facility] CHEST 2 INC INC VIEWS FRONTAL&L ATERAL BLOOD 63803 [facility] SANTIAGO COUNT 1 [facility] COMPLETE INC INC AUTO&AUTO DIFRNTL WBC URNLS DIP 94503 [facility] SANTIAGO 1 [facility] STICK/TAB INC [place] [address] [facility] SANTIAG[facility] INFUSION 1 [facility] THERAPY/P INC INC ROPHYLAXI S /DX 1ST TO 1 HR COMPREHEN 15244 [facility] SANTIAG[facility] SIVE 1 [facility] [address] [facility] SANTIAG[facility] LIPASE 1 [facility] INC INC RADEX 28687 P[facility]A SANTIAGO RIBS UNI 1 [facility] W/POSTERO INC INC ANT CH MINIMUM 3 VIEWS CULTURE 34848 [facility] SANT[facility] BACTERIAL 1 [facility] INC INC QUANTTATI VE COLONY COUNT URINE URINE 45244 [facility] SANTIAGO 1 [facility] TEST INC INC VISUAL COLOR CMPRSN METHS IADNA 62531 JOSEY [facility] NEISSERIA 1 CO CO HEALTH HEALTH GONORRHOE DEPARTFL DEPARTFL AE AMPLIFIED PROBE TQ CONTRACEP S4993 [facility]OW[facility] TIVE 1 CO [facility] DEPARTFL CONTROL IADNA 30136 JOSEY [facility] CHLAMYDIA 1 CO CO HEALTH HEALTH TRACHOMAT DEPARTFL DEPARTFL IS AMPLIFIED PROBE TQ RADIOLOGI 55897 [facility]A SANTIAGO C 1 [facility] EXAMINATI INC INC ON NECK SOFT TISSUE URINE 50844 PAMELA SANTIAGO 1 [facility] TEST INC INC VISUAL COLOR CMPRSN METHS CONTRACEP S4993 [facility] TIVE 1 CO [facility] DEPARTFL CONTROL CONTRACEP S4993 [facility] TIVE 1 CO CO PILLS FOR [facility]ALTH [facility] CONTROL KNEE L1830 [facility] ORTHOSIS 1 IMMOBLIZE R CANVAS LONGTUDNL PREFAB RADIOLOGI 98342 P[facility]ELA Bateman 1 [facility] EXAMINATI INC INC ON KNEE 3 VIEWS FITTING 53822 [facility] CARE MAY SPECTACLE 0 ASSOCIATE DEEJAY Rodriguez XCPT S APHAKIA MONOFOCAL 1 VISN V2104 EYE CARE MAY PLANO-+/- 0 ASSOCIATE DEEJAY 4.00D S SPHER 2.12-4.00 D CYL EA FRAMES V2020 [facility] MAY PURCHASES 0 ASSOCIATE DEEJAY Rodriguez DETERMINA 29353 [facility] CARE MAY TION 0 ASSOCIATE VILLALBA REFRACTIV S E STATE OPHTH 22363 [facility] MAY MEDICAL 0 ASSOCIATE DEEJAY VILLAR&EVAL Jennifer COMPRHNSV ESTAB PT 1/> IADNA 18829 JO[facility] NEISSERIA 0 CO CO HEALTH HEALTH GONORRHOE DEPARTFL DEPARTFL AE AMPLIFIED PROBE TQ IADNA 74501 JOSEY [facility] CHLAMYDIA 0 CO CO HEALTH HEALTH TRACHOMAT DEPARTFL DEPARTME IS AMPLIFIED PROBE TQ CONTRACEP S4993 [facility] TIVE 0 CO [facility] [place] [address] P[facility]A SANTIAGO INFUSION 0 [facility] THERAPY/P INC INC ROPHYLAXI S /DX 1ST TO 1 HR BLOOD 49333 [facility]A SANTIAGO COUNT 0 [facility] COMPLETE INC INC AUTO&AUTO DIFRNTL WBC URNLS DIP 95380 [facility] SANTIAGO 0 [facility] STICK/TAB INC INC LET REAGENT AUTO MICROSCOP Y URINE 87456 [facility] SANTIAGO 0 [facility] TEST INC INC VISUAL COLOR CMPRSN METHS CT PELVIS 49861 [facility]A SANTIAGO W/O 0 [facility] CONTRAST INC INC MATERIAL 3D 12484 [facility] SANTIAGO RENDERING 0 [facility] INC INC W/INTERP& [place] [address] PAMELA SANTIAGO ABDOMEN 0 [facility] W/[place] [address] [facility] SANTIAGO AMYLASE 0 [facility] INC INC COMPREHEN 46201 PAMELA SANTIAGO SIVE 0 [facility] [address] P[facility]A SANTIAGO LIPASE 0 [facility] INC INC CONTRACEP S4993 JO[facility]Y [facility] TIVE 0 [facility] CONTROL T T URNLS DIP 68121 [facility] SANTIAGO 0 [facility] STICK/TAB INC INC [place] [address] PAMELA SANTIAGO STREPTOCO 0 [facility] CCUS INC INC GROUP A URINE 26155 P[facility]A SANTIAGO 0 [facility] TEST INC INC VISUAL COLOR CMPRSN METHS URINE 28982 PAMELA SANTIAGO 9 [facility] TEST INC INC VISUAL COLOR CMPRSN METHS URNLS DIP 93000 [facility]A SANTIAGO 9 [facility] STICK/TAB INC INC LET REAGENT AUTO MICROSCOP Y RADIOLOGI 97453 PAMELAGAUTAM SANTIAGO C EXAM 9 [facility] CHEST 2 INC INC VIEWS FRONTAL&L ATERAL CONTRACEP S4993 DHS/CO JOSEY TIVE 9 HEALTH CO [facility] B[facility] ACCT DEPARTMEN CONTROL T IAADI 25853 [facility]A SANTIAGO INFFLUENZ 9 [facility] A A VIRUS INC INC IAADI 26797 PAMELA SANTIAGO INFLUENZA 9 [facility] B VIRUS INC INC URINE 11242 PAMELA SANTIAGO 9 [facility] TEST INC INC VISUAL COLOR CMPRSN METHS RADIOLOGI 48903 PAMELA SANTIAGO C EXAM 9 [facility] CHEST 2 INC INC VIEWS FRONTAL&L ATERAL CONTRACEP S4993 DHS/CO JOSEY TIVE 9 HEALTH CO PILLS FOR [facility] BANK ACCT DEPARTMEN CONTROL T FRAMES V2020 MARQUIS OLVERA, PURCHASES 9 RUFINA Lopez OD DETERMINA 22549 ROLY ARVIZU 9 RUFINA Lopez REFRACTIV OD E STATE FITTING 85619 MARQUIS OLVERA SPECTACLE 9 RUFINA Lopez S XCPT OD APHAKIA MONOFOCAL OPHTH 67909 MARQUIS OLVERA, MEDICAL 9 RUFINA SAULO T XM&EVAL OD COMPRHNSV ESTAB PT 1/> 1 VISN V2104 MARQUIS OLVERA, PLANO-+/- 9 RUFINA VERNON T 4.00D OD SPHER 2.12-4.00 D CYL EA CONTRACEP S4993 DHS/CO DEBO CO TIVE [address] [address] [facility] ACCT T CONTROL URINE 28583 [facility]A SANTIAGO 9 [facility] TEST INC INC VISUAL COLOR CMPRSN METHS RADEX 76784 YEE ANGELICA, WRIST 9 MEDICAL SHAH[facility] COMPLETE IMAGING MINIMUM 3 ASSOCIATE VIEWS S RADEX 40261 [facility]A SANTIAGO FINGR 9 [facility] MINIMUM 2 INC INC VIEWS US BREAST 78279 YEE SANON, REAL 9 MEDICAL JASMIN P TIME IMAGING W/IMAGE ASSOCIATE DOCUMENTA S TION DETER 44404 P[facility]A SANTIAGO AIRWY 8 [facility] CLOSING INC INC VOL 1 BRTH TSTS BRNCDILAT 39552 MALLORY KENDALLSE 8 [facility] PRE&POST- PROF SERV BRNCDILAT ADMN PRESSURIZ 16771 PAMELA SANTIAGO ED/NONPRE 8 [facility] HOSP SSURIZED INC INC INHALATIO N TREATMENT DETER 24775 PAMELA SANTIAGO MALDISTRI 8 [facility] BJ OF INC INC INSPIRED GAS N WSHOT CURVE FUNCTIONA [address] [facility] [place] [address] YEE MARTINESLEY, ABDOMINAL 8 MEDICAL JASMIN P REAL IMAGING TIME ASSOCIATE W/IMAGE S LIMITED RADEX 30547 YEE ANGELICA, UPPER GI 8 MEDICAL SHAHAB W/WO IMAGING GLUCAGON/ ASSOCIATE DELAY S IMAGES W/KUB RADIOLOGI 58272 PAMELA SANTIAGO C EXAM 8 [facility] HOSP CHEST 2 INC INC VIEWS FRONTAL&L ATERAL ECG 01041 PAMELA SANTIAGO ROUTINE 8 [facility] HOSP ECG INC INC W/LEAST 12 LDS TRCG ONLY W/O I&R ECG 89466 PAMELA EWING, ROUTINE 8 [facility] W/LEAST PROF SERV 12 LDS I&R ONLY OPHTH 56362 MARQUIS OLVERA, MEDICAL 8 RUFINA Lopez XM&EVAL OD COMPRHNSV ESTAB PT 1/> 1 VISN V2103 MARQUIS OLVERA, PLANO 8 RUFINA Lopez TO+/-4.00 OD D SPHER 0.12-2.00 D CYL EA FITTING 96972 MARQUIS OLVERA, SPECTACLE 8 RUFINA Lopez S XCPT OD APHAKIA MONOFOCAL FRAMES V2020 MARQUIS OLVERA, PURCHASES 8 RUFINA Lopez OD DETERMINA 57637 MARQUIS OLVERA TION 8 RUFINA Lopez REFRACTIV OD E STATE BASIC 39838 PAMELA SANTIAGO METABOLIC 8 [facility] PANEL INC INC CALCIUM TOTAL URINE 62544 PAMELA SANTIAGO 8 [facility] TEST INC INC VISUAL COLOR CMPRSN METHS 3D 57367 PMAELA SANTIAGO RENDERING 8 [facility] INC INC W/INTERP& POSTPROC DIFF WORK STATION BLOOD 52545 PAMELA SANTIAGO COUNT 8 [facility] COMPLETE INC INC AUTO&AUTO DIFRNTL WBC CT THORAX 31520 YEE DOMINGUEZ, W/O 8 MEDICAL [facility]AH[facility] CONTRAST [place] [address] PAMELA SANTIAGO TROPONIN 8 [facility]P QUANTITAT INC INC SHILPI FIBRIN 92190 PAMELA SANTIAGO DGRADJ 8 [facility] HOSP PRODUCTS INC INC D-DIMER QUAL/SEMI VENICE CREATINE 66935 PAMELA SANTIAGO KINASE MB 8 [facility] HOSP FRACTION INC INC ONLY SEDIMENTA 44413 PAMELA SANTIAGO TION RATE 8 [facility] HOS[facility] RBC INC INC NON-AUTOM ATED CREATINE 22326 PAMELA SANTIAGO KINASE 8 [facility] TOTAL INC INC RADIOLOGI 10775 PAMELA SANTIAGO C EXAM 8 [facility] HOSP CHEST 2 INC INC VIEWS FRONTAL&L ATERAL Encounters Encounter Start End Date Code Location Performer Type Date PERIODIC 94983 ABIGAIL HAYES PREVENTIV 6 6 [facility] PATIENT DEPT. DEPT. 18-39 YRS EMERGENCY 16999 [facility] 6 6 ELISA A [facility] EMERGENCY T VISIT PHYS HIGH/URGE NT SEVERITY OFFICE 75350 [facility] OUTPATIEN 2 2 CO CO T VISIT HEALTH HEALTH 10 [facility] DEPARTME MINUTES OFFICE 06737 GAYATHRI TRINH OUTPATIEN 2 2 MARSHALL MARSHALL T VISIT 15 MINUTES OFFICE 04308 AWOSIKA AWOSIKA OUTPATIEN 2 2 ABEL ABEL T NEW 30 MINUTES OFFICE 47340 JOSEY HATHAWAYPATIEN 1 1 CO CO T VISIT HEALTH HEALTH 10 [facility] DEPARTFL MINUTES HOSPITAL PAMELA - 1 1 [facility] OUTPATIEN INC T EMERGENCY 88654 ARIN WEAVER NACHO 1 1 EMERGENCY DEPARTMEN SERVICES T VISIT HIGH/URGE NT SEVERITY PERIODIC 18205 JOSEY [facility] PREVENTIV 1 1 CO CO E MED EST HEALTH HEALTH PATIENT DEPARTME DEPARTFL 18-39 YRS OFFICE 65811 GAYATHRI TRINH OUTJOHNEN 1 1 MARSHALL MARSHALL T VISIT 15 MINUTES EMERGENCY 21688 P[facility]ELA 1 1 [facility] DEPARTMEN INC T VISIT LOW/MODER SEVERITY HOSPITAL [facility] - 1 1 [facility] OUTPATIEN INC T EMERGENCY 06879 ARIN FRANCOIS NANCY 1 1 EMERGENCY DEPARTMEN SERVICES T VISIT HIGH/URGE NT SEVERITY OFFICE 73270 JOSEY HATHAWAYPATIEN 1 1 CO CO T VISIT HEALTH HEALTH 10 DEPARTFL DEPARTFL MINUTES OFFICE 60389 JOSEY HATHAWAYPATIEN 1 1 CO CO T VISIT HEALTH HEALTH 10 DEPARTFL DEPARTFL MINUTES OFFICE 52268 [facility] PETTEY CONSULTAT 1 1 PHYSICIAN SANDRA ALFARO NEW/ESTAB PATIENT 60 MIN OFFICE 39271 GAYATHRI MARTINEN 1 1 MARSHALL MARSHALL T VISIT 15 MINUTES EMERGENCY 24113 ARIN BRIGGS 1 1 EMERGENCY DEPARTMEN SERVICES T VISIT HIGH/URGE NT SEVERITY HOSPITAL P[facility]ELA - 1 1 [facility] OUTPATIEN INC T EMERGENCY 08153 PAMELA 1 1 [facility] DEPARTMEN INC T VISIT LOW/MODER SEVERITY PERIODIC 08619 JOSEY DOWLING PREVENTIV 0 0 CO CO E MED EST HEALTH HEALTH PATIENT DEPARTME DEPARTME -17YRS HOSPITAL PAMELA - 0 0 [facility] OUTPATIEN INC T EMERGENCY 98995 PAMELA 0 0 [facility] DEPARTMEN INC T VISIT HIGH/URGE NT SEVERITY EMERGENCY 04710 DAVID GAGE 0 0 EMERGENCY [facility] VISIT SERVICES HIGH SEVERITY& ASSOCIATE THREAT S FUNCJ OFFICE 30525 GAYATHRI TRINH OUTPATIEN 0 0 SUNDEEP Bal T VISIT 15 MINUTES OFFICE 32309 JOSEY VELÁZQUEZ 0 0 CO CO T VISIT [facility] 10 DEPARTMEN DEPARTMEN MINUTES T T OFFICE 18959 GAYATHRI TRINH OUTPATIEN 0 0 SUNDEEP Bal T VISIT 15 MINUTES OFFICE 92103 GAYATHRI TRINH OUTPATIEN 0 0 SUNDEEP Bal T VISIT 15 MINUTES EMERGENCY 91258 ARIN LEDBETTER, 0 0 EMERGENCY [facility] DEPARTMEN SERVICES T VISIT HIGH/URGE ASSOCIATE NT S SEVERITY EMERGENCY 41546 [facility] 0 0 [facility] DE[facility] INC T VISIT MODERATE SEVERITY [facility] OUTPATI[facility] INC T EMERGENCY 29253 ARIN RENTERIA 0 0 EMERGENCY III, DEPARTMEN SERVICES SHANELLE T VISIT HIGH/URGE ASSOCIATE NT S SEVERITY [facility] OUT[facility] INC T EMERGENCY 23237 [facility] 9 9 [facility] DEPARTMEN INC T VISIT LOW/MODER SEVERITY [facility] 9 9 [facility] OUTPATIEN INC T EMERGENCY 43492 ARIN LEDBETTER, 9 9 EMERGENCY [facility] DEPARTMEN SERVICES T VISIT HIGH/URGE ASSOCIATE NT S SEVERITY OFFICE 09794 [facility]/CO JOSEY VELÁZQUEZ 9 9 HEALTH CO T VISIT [facility] 10 BANK ACCT DEPARTMEN MINUTES T OFFICE 20023 RYAN DAVIS OUTPATIEN 9 9 NAIMA A NAIMA A T VISIT 15 MINUTES EMERGENCY 74264 ARIN LEDBETTER 9 9 EMERGENCY NITIN S DEPARTMEN SERVICES T VISIT HIGH/URGE ASSOCIATE NT S SEVERITY [facility] 9 9 [facility] OUTPATIEN INC T EMERGENCY 73600 [facility] 9 9 [facility] DEPARTMEN INC T VISIT MODERATE SEVERITY PERIODIC 77219 [facility]/CO [facility] PREVENTIV 9 9 HEALTH CO E MED EST [facility] PATIENT BANK ACCT DEPARTMEN 12-17YRS T OFFICE 14640 [facility]/CO DEBO CO OUTPATIEN 9 9 HEALTH HEALTH T NEW 10 CENTRAL DEPARTMEN MINUTES BANK ACCT T OFFICE 75620 RYAN DAVIS OUTPATIEN 9 9 NAIMA A NAIMA A T VISIT 15 MINUTES EMERGENCY 84826 [facility] 9 9 [facility] DEPARTMEN INC T VISIT LOW/MODER SEVERITY [facility] 9 9 [facility] OUTPATIEN INC T EMERGENCY 28362 ARIN HATFIELD, 9 9 EMERGENCY [place] DEPARTMEN SERVICES O T VISIT MODERATE ASSOCIATE SEVERITY S [facility] - 9 9 [facility] OUT[facility] INC T OFFICE 32524 [facility] OUTPATIEN 9 9 HEALTH CO T VISIT [facility] 15 BANK ACCT DEPARTMEN MINUTES T OFFICE 78749 RYAN DAVIS OUTPATIEN 9 9 NAIMA A NAIMA A T VISIT 15 MINUTES OFFICE 59625 RYAN DAVIS OUTPATIEN 9 9 NAIMA A NAIMA A T VISIT 15 MINUTES OFFICE 25540 MELANIA CLAIRE 8 8 [facility] T VISIT INTERNAL 15 MED MINUTES [facility] T OFFICE 16941 MELANIA CLAIRE 8 8 [facility] T VISIT INTERNAL 15 MED MINUTES [facility] 8 [facility] INC T OFFICE 86058 RYAN DAVIS OUTPATIEN 8 8 NAIMA A NAIMA A T VISIT 15 MINUTES OFFICE 79680 RYAN DAVIS OUTPATIEN 8 8 NAIMA A NAIMA A T VISIT 15 MINUTES [facility] - 8 8 [facility] INC T OFFICE 75516 RYAN DAVIS OUTPATIEN 8 8 NAIMA A NAIMA A T VISIT 15 MINUTES OFFICE 66796 RYAN DAVIS OUTPATIEN 8 8 NAIMA A NAIMA A T VISIT 15 MINUTES OFFICE 69704 RYAN DAVIS OUTPATIEN 8 8 NAIMA A NAIMA A T VISIT 15 MINUTES OFFICE 18021 RYAN DAVIS OUTPATIEN 8 8 NAIMA A NAIMA A T VISIT 15 MINUTES [facility] - 8 8 [facility] OUTPATIEN INC T EMERGENCY 92216 [facility] 8 8 [facility] T VISIT MODERATE SEVERITY
--- OUTSIDE RECORDS SUMMARY | 2017-05-16 14:59 | External Medical Summary Rpt ---
Author Author , ROBERT JONES Address Unknown Phone [email or web address] Care Team Providers Care Push Connector Assembler Name Role Phone GAYATHRI MARSHALL, ARNOLD Unavailable Unavailable MARSHALL ARNOLD MARSHALL, ARNOLD Unavailable Unavailable MARSHALL GAYATHRI, SUNDEEP W, Unavailable Unavailable ARNOLD, SUNDEEP W AWOSIKA, AWOSIKA Unavailable Unavailable AWOSIKA, AWOSIKA Unavailable Unavailable AWOSIKA ABEL, AWOSIKA Unavailable Unavailable ABEL AWOSIKA ABEL, AWOSIKA Unavailable Unavailable ABEL [facility] Unavailable Unavailable HEALTH C, [facility] ANGELICA ROBERT, Unavailable Unavailable ANGELICA ROBERT SHAHAB DOMINGUEZ, Unavailable Unavailable ANEGLICA SHAHAB [facility] Un[facility] Un[facility], Unavailable Unavailable [facility] [place] [place] [facility] [place] [facility] [place] [facility] Unavailable Unavailable [facility] Unavailable [facility] Unavailable Unavailable DEPT., [facility] DEPT. [facility] Unavailable Unavailable DEPT., [facility] DEPT. NITIN LEDBETTER, Unavailable Unavailable NITIN LEDBETTER GRAY ROB Unavailable Unavailable [facility], [facility] KEVIN BURGESS HARVEY, Unavailable Unavailable KEVIN [facility], Unavailable Unavailable [facility] Un[facility] Un[facility], [facility] ALHAJI EWING, Unavailable Unavailable ALHAJI EWING [facility] Unavailable Unavailable SERVICES, [facility] Unavailable Unavailable DEPARTMENT, [facility] DEPARTMENT JASMIN SANON, Unavailable Unavailable JASMIN SANON JOE A, Unavailable Unavailable NAIMA DAVIS PETTEHaydee JAM, PETTEY Unavailable Unavailable JAM RADHA JEA, RADHA Unavailable Unavailable JEA [id number], Unavailable Unavailable [id number] Unavailable Unavailable DEPARTME, [facility] Unavailable Unavailable DEPARTME, [facility] Unavailable Unavailable DEPARTMENT, [facility] DE[facility] MAY SAEED Unavailable Unavailable SAULO KHAN, Unavailable Unavailable SAULO OLVERA SOKAN BAB, SOKAN BAB Unavailable Unavailable SOKAN, CHEKO O, Unavailable Unavailable SOKAN, CHEKO O [facility] Unavailable Unavailable EMERGENCY PHYS, [facility] SHANELLE RENTERIA III, Unavailable Unavailable SHANELLE RENTERIA III Purpose Continuity of Care Document - 10-31-2007 through 2016 Problems Code Diagnosis DOS Provider Status [id number] MYOPIA 03-09-2017 AWOSIKA BILATERAL [id number] UNSPECIFIED 03-09-2017 AWOSIKA ASTIGMATISM BILATERAL 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 ABNORMAL FIND Z3044 ENCOUNTR 08-17-2016 [facility] O900 DISRUPTION 04-30-2016 [facility] DELIVERY PHYS WOUND 2662 OTHER 12-07-2011 [facility] B-COMPLEX CO HEALTH DEFICIENCIE DEPARTME S V2541 SURVEILLANC 12-07-2011 JOSEY E PREV ID HEALTH PRESCRIBED DEPARTME CONTRACEPT PILL 5999 UNSPECIFIED 11-04-2011 GAYATHRI MARSHALL DISORDER OF URETHRA&URI NARY TRACT 94981 RETINAL 11-02-2011 AWOSIKA ABEL NERVE FIBER BUNDLE DEFECTS 3671 MYOPIA 11-02-2011 AWOSIKA ABEL 45836 OTHER 11-02-2011 AWOSIKA ABEL CHRONIC ALLERGIC CONJUNCTIVI TIS 6264 IRREGULAR 08-04-2011 [facility] MENSTRUAL ID HEALTH CYCLE DEPARTME 80876 HORDEOLUM 06-29-2011 [facility] 18319 PAINFUL 06-29-2011 [facility]ATION [facility] 64553 OTHER CHEST 06-29-2011 [facility] V7231 ROUTINE 06-27-2011 [facility] GYNECOLOGIC ID HEALTH AL DEPARTME EXAMINATION 4619 ACUTE 04-11-2011 ARNOLD MARSHALL SINUSITIS, UNSPECIFIED 8470 NECK SPRAIN 04-02-2011 [facility] AND STRAIN EMERGENCY SERVICES 64564 CONTUSION 12-10-2010 [facility] 34858 PAIN IN 12-09-2010 ARNOLD MARSHALL JOINT, LOWER LEG 8449 SPRAIN&STRA 12-02-2010 [facility] IN OF [facility] UNSPECIFIED INC SITE OF KNEE&LEG 68181 REGULAR 08-20-2010 [facility] 78959 ABDOMINAL 05-12-2010 [place] [facility], MEDICAL UNSPECIFIED IMAGING ASS SITE 67056 ABDOMINAL 05-12-2010 [facility] PAIN, EMERGENCY GENERALIZED SERVICES ASSOCIATES 87614 UNSPECIFIED 04-27-2010 GAYATHRI INFECTIVE SUNDEEP Bal OTITIS EXTERNA 4660 ACUTE 02-20-2010 GAYATHRI, BRONCHITIS SUNDEEP W 93630 ASTHMA 10-25-2009 [facility] UNSPECIFIED EMERGENCY WITH SERVICES EXACERBATIO ASSOCIATES N 95048 ASTHMA, 09-17-2009 [facility] UNSPECIFIED EMERGENCY , SERVICES UNSPECIFIED ASSOCIATES STATUS 7862 COUGH 09-17-2009 [facility] 5110 PLEURISY 07-10-2009 [facility] WITHOUT EMERGENCY MENTION SERVICES EFFUS/CURRE ASSOCIATES NT TB 514 PULMONARY 07-10-2009 [facility] HYPOSTASIS [facility]IATES V720 EXAMINATION 06-04-2009 MARQUIS Valdez OF EYES RUFINA OD AND VISION V2503 ENCOUNTER 05-22-2009 [facility] EMERGENCY HEALTH CONTRACEPT CENTRAL CNSL&PRESCR BANK ACCT IPTION 9595 INJURY 05-01-2009 DAVIS, OTHER AND NAIMA A UNSPECIFIED FINGER 30469 PAIN IN 04-29-2009 [facility] JOINT, EMERGENCY FOREARM SERVICES ASSOCIATES 59193 OTHER HAND 04-29-2009 [place] SPR[facility] AND [facility] STRAIN IMAGING [facility] E8498 OTHER 04-29-[address] [address] OF IMAGING OCCURRENCE ASSOCIATES E9170 STRIKE 04-29-2009 [place] AGNST/STRUC MEDICAL K ACC IMAGING SPORTS W/O ASSOCIATES SUBSQT FALL 20295 LUMP OR 01-13-2009 [place] MASS IN MEDICAL BREAST IMAG[facility] 4779 ALLERGIC 12-27-2008 DAVIS, RHINITIS NAIMA A CAUSE UNSPECIFIED 4640 ACUTE 12-10-2008 DAVIS, LARYNGITIS NAIMA A 68152 COUGH 07-16-2008 [facility] INTERNAL MED 15035 OTHER 07-07-2008 [facility] AND [facility] [place] [address] UNSPECIFIED 07-02-2008 [facility] INTERNAL MED ABNORMALITY 93567 ABDOMINAL 06-19-2008 [facility] PAIN, MEDICAL EPIGASTRIC IMAGING ASSOCIATES 59004 CHEST PAIN 06-14-2008 [facility] UNSPECIFIED [facility] PROF SERV 5118 PLEURISY 10-31-2007 [facility] W/OTH SPEC [facility] FORMS EFFUS INC NO TUBERCULOUS 7931 NONSPEC 10-31-2007 [facility] OT EXAM IMAGING BODY STRUCT ASSOC[facility]ATES LUNG FIELD [...] 00 OG ti OL 30 1- - 00 06 ER ve IN 68 20 [...] 03 1. 28 00 KR Ac VA - 00 00 OG ti RI 20 4- [...] 7- 3- 00 SI 03 LD ve NC 02 20 20 DE ED 20 10 [...] 7- 7- 00 SI 03 LD ve NC 02 20 20 DE ED 20 10 [...] 3- 5- 00 SI 19 LD ve NC 02 20 20 DE ED 20 10 [...] 8- 7- 00 SI 82 Av ve NC 50 20 20 DE ai AM 91 [...] 20 20 DE LI 30 10 10 SD N 5 PH CH 50 AR AE [...] 8- 4- 00 SI 82 Av ve NC 00 20 20 DE ai AM 70 [...] 0 7. 10 EA 18 AR Ac NC 06 -1 -[address] 33 NO [...] 8- 6- 00 SI 82 Av ve NC 00 20 20 DE ai AM 70 [...] 2- 2- 00 SI 97 Av ve NC 34 20 20 DE ai AM 40 10 10 la 5 PH bl HB AR e R MA 40 CY MG OF TA CY BL NT ET HI AN A ME 00 05 05 0 21 6 EA 17 GA Ac TH 78 -0 -[address] 43 IN ti YL 15 2- 2- 00 SI 20 EY ve NC 02 20 20 DE ED 20 10 10 SD NI 7 PH CH SO AR AE LO MA L NE CY S 4 OF MG CY DO NT SE HI PK AN A AZ 00 05 05 0 6. 5 EA 17 GA Ac IT 09 -0 -[address] 43 IN ti HR 37 2- 2- 0 SI 21 EY ve OM 14 20 20 DE YC 61 10 10 SD IN 8 PH CH AR AE 25 [...] 2- 3- 00 SI 97 Av ve NC 34 20 20 DE ai AM 40 [...] 2- 2- 00 S 00 Av ve NC 34 20 20 PH 9 ai AM [...] 3- 1- 00 SI 19 LD ve NC 02 20 20 DE ED 20 10 10 RI NI 7 PH CH SO AR AR LO MA D NE CY W 4 OF MG CY NT DO HI SE AN PK A CI 55 02 02 00 15 15 DE 63 No Ac TA 11 -0 -1 .0 AN 90 t ti LO 10 2- 1- 00 S 86 Av ve NC 34 20 20 PH 0 ai AM [...] CY BL NT ET HI AN A NC 00 01 01 00 10 5 EA [...] 8- 4- 00 S 35 Av ve NC 34 20 20 PH 4 ai AM [...] NT HI AN A CI 55 12 12 00 15 15 DE 63 No Ac TA 11 -0 -1 .0 AN 88 t ti LO 10 8- 7- 00 S 35 Av ve NC 34 20 20 PH 4 ai AM 40 09 09 AR la 1 MA bl HB CY e R 40 MG TA BL ET ME 00 12 12 00 21 6 RI 81 GA Ac TH 60 -0 -1 .0 TE 16 IN ti YL 34 3- 7- 00 42 EY ve NC 59 20 20 AI ED 31 09 09 D SD NI 5 PH CH SO AR AE LO M L NE #3 S 4 93 8 MG DO SE PK AZ 59 12 12 00 6. 5 RI 81 GA Ac IT 76 -0 -1 00 TE 16 IN ti HR 23 3- 7- 0 43 EY ve OM 06 20 20 AI YC 00 09 09 D SD IN 1 PH CH AR AE 25 M L 0 #3 S MG 93 8 TA BL ET LO 45 10 12 [...] 0- 9- 00 S 05 Av ve NC 34 20 20 PH 3 ai AM [...] 6- 8- 00 SI 34 EY ve NC 02 20 20 DE ED 20 09 09 SD NI 7 PH CH SO AR AE LO MA L NE CY S 4 OF MG CY NT DO HI SE AN PK A AZ 00 09 10 00 6. 6 EA 14 GA Ac IT 09 -2 -[address] 43 IN ti HR 37 6- 8- 0 SI 35 EY ve OM 14 20 20 DE YC 61 09 09 SD IN 8 PH CH AR AE 25 [...] HI AN A LO 60 05 06 30 30 EA 97 No Ac RA [...] HI AN A LO 60 01 04 30 30 EA 96 No Ac RA [...] Procedures Procedure DOS Code Location Performer Comment OPH 95145 [facility] 7 XM&EVAL COMPRHNSV ESTAB PT 1/> DETERMINA 32078 [facility] TION 2 ABEL ABEL REFRACTIV E STATE RX&FITG 73843 [facility] C-LENS 2 ABEL ABEL SUPVJ CRNL LENS OU XCPT APHK FUNDUS 97273 [facility] PHOTOGRAP 2 ABEL ABEL HY W/INTERPR ETATION & REPORT CONTRACEP S4993 JOSEY DOWL[facility] TIVE 1 CO ID PILLS FOR HEALTH HEALTH DEPARTME DEPARTME CONTROL URINE 80174 [facility] TEST INC INC VISUAL COLOR CMPRSN METHS CULTURE 38019 [facility] BACTERIAL 1 [facility] INC INC QUANTTATI VE COLONY COUNT URINE RADEX 83685 [place] [facility] RIBS UNI 1 MEDICAL ROBERT W/POSTERO IMAGING ANT CH ASS MINIMUM 3 VIEWS URNLS DIP 14273 [facility] 1 [facility] STICK/TAB INC INC LET REAGENT AUTO MICROSCOP Y BLOOD 09019 [facility] COUNT 1 [facility] COMPLETE INC INC AUTO&AUTO DIFRNTL WBC RADIOLOGI 52083 [place] AN[facility] C EXAM 1 MEDICAL ROBERT CHEST 2 IMAGING VIEWS ASS FRONTAL&[place] [address] [facility] S[facility] INFUSION 1 [facility] THERAPY/P INC INC ROPHYLAXI S /DX 1ST TO 1 HR COMPREHEN 45532 [facility] SIVE 1 [facility] [address] [facility] LIPASE 1 [facility] INC INC IADNA 88324 JOSEY DOWLING CHLAMYDIA 1 CO ID HEALTH HEALTH TRACHOMAT DEPARTME DEPARTME IS AMPLIFIED PROBE TQ IADNA 98311 JOSEY DOWLING NEISSERIA 1 CO CO HEALTH HEALTH GONORRHOE [facility] AE AMPLIFIED PROBE TQ CONTRACEP S4993 JOSEY BLANCOON TIVE 1 CO CO PILLS FOR HEALTH HEALTH [facility] CONTROL RADIOLOGI 66955 YEE GRIGSBYCHER C 1 MEDICAL ROBERT EXAMINATI IMAGING ON NECK ASS SOFT TISSUE URINE 34224 [facility]AG[facility] 1 [facility] TEST INC INC VISUAL COLOR CMPRSN METHS CONTRACEP S4993 DOW[facility] DOWLING TIVE 1 CO CO PILLS FOR HEALTH HEALTH [facility] CONTROL CONTRACEP S4993 [facility] DOWLING TIVE 1 CO CO PILLS FOR HEALTH HEALTH [facility] CONTROL RADIOLOGI 33638 YEE DOMINGUEZ C 1 MEDICAL ROBERT EXAMINATI IMAGING ON KNEE 3 ASS VIEWS KNEE L1830 [facility] ORTHOSIS 1 IMMOBLIZE R CANVAS LONGTUDNL PREFAB 1 VISN V2104 [facility] MAY PLANO-+/- 0 ASSOCIATE DEEJAY 4.00D S SPHER 2.12-4.00 D CYL EA OPHTH 79124 [facility] OLVERA MEDICAL 0 ASSOCIATE DEEJAY VILLAR&EVDESHAWN Rodriguez COMPRHNSV ESTAB PT 1/> FITTING 51028 [facility] MAY SPECTACLE 0 ASSOCIATE DEEJAY Rodriguez XCPT S APHAKIA MONOFOCAL DETERMINA 86503 [facility] MAY TION 0 ASSOCIATE VILLALBA REFRACTIV S E STATE FRAMES V2020 [facility] PURCHAS[facility] 0 ASSOCIATE DEEJAY Rodriguez IADNA 99463 JOSEY DOWLING CHLAMYDIA 0 CO CO HEALTH HEALTH TRACHOMAT [facility] IS AMPLIFIED PROBE TQ CONTRACEP S4993 JOSEY DOWLING TIVE 0 CO CO PILLS FOR HEALTH HEALTH [facility] CONTROL IADNA 72380 JOSEY DOW[facility]ING NEISSERIA 0 CO CO HEALTH HEALTH GONORRHOE [facility] [place] [place] [address] [facility] RAMACHANDRANON INFUSION 0 [facility] THERAPY/P INC INC ROPHYLAXI S /DX 1ST TO 1 HR URNLS DIP 80984 [facility] 0 [facility] STICK/TAB INC INC LET REAGENT AUTO MICROSCOP Y BLOOD 53256 [facility] SANT[facility]AG[facility] COUNT 0 [facility] COMPLETE INC INC AUTO&AUTO DIFRNTL WBC URINE 03567 [facility] 0 [facility] TEST INC INC VISUAL COLOR CMPRSN METHS CT PELVIS 52600 [place] [facility] W/O 0 MEDICAL ROBERT CONTRAST IMAGING MATERIAL ASS 3D 72518 [place] AN[place] RENDERING 0 MEDICAL ROBERT IMAGING W/INTERP& ASS POSTPROC DIFF WORK STATION COMPREHEN 89713 [facility] SIVE 0 [facility] [address] [facility] AMYLASE 0 [place] [address] [place] [facility] ABDOMEN 0 MEDICAL ROBERT W/[place] [address] [facility] LIPASE 0 [facility] INC INC CONTRACEP S4993 JOSEY DOWLING TIVE 0 CO CO PILLS FOR HEALTH HEALTH DEPARTMEN DEPARTMEN CONTROL T T URNLS DIP 72820 [facility] 0 [facility] STICK/TAB INC INC LET REAGENT AUTO MICROSCOP Y URINE 13839 [facility] 0 [facility] TEST INC [place] [address] [facility] S[facility] STREPTOCO 0 [facility] CCUS INC INC GROUP A URINE 75998 [facility] 9 [facility] TEST INC INC VISUAL COLOR CMPRSN METHS URNLS DIP 28803 [facility] RAMACHANDRANON 9 [facility] STICK/TAB INC INC LET REAGENT AUTO MICROSCOP Y RADIOLOGI 50527 [facility] MARTINEZ EXAM 9 MEDICAL SHAHAB CHEST 2 IMAGING VIEWS ASSOCIATE FRONTAL&L S ATERAL CONTRACEP S4993 [facility] TIVE 9 HEALTH CO PILLS FOR [facility] BANK ACCT DEPARTMEN CONTROL T RADIOLOGI 16237 Bhavana BIRD EXAM 9 MEDICAL JASMIN P CHEST 2 IMAGING VIEWS ASSOCIATE FRONTAL&L S ATERAL IAADI 92448 [facility] INFLUENZA 9 [facility] B VIRUS INC INC IAADI 39254 [facility] INFFLUENZ 9 [facility] A A VIRUS INC INC URINE 61693 [facility]ANT[facility]AG[facility] 9 [facility] TEST INC INC VISUAL COLOR CMPRSN METHS CONTRACEP S4993 [facility] TIVE 9 HEALTH CO PILLS FOR [facility] ACCT DEPARTMEN CONTROL T DETERMINA 14192 MARQUIS OLVERA TION 9 RUFINA Lopez REFRACTIV OD E STATE FRAMES V2020 MARQUIS OLVERA, PURCHASES 9 RUFINA Lopez OD 1 VISN V2104 MARQUIS OLVERA, PLANO-+/- 9 RUFINA Lopez 4.00D OD SPHER 2.12-4.00 D CYL EA FITTING 33934 MARQUIS OLVERA, SPECTACLE 9 RUFINA Lopez S XCPT OD APHAKIA MONOFOCAL OPHTH 51829 MARQUIS OLVERA, MEDICAL 9 RUFINA VERNON T XM&EVAL OD COMPRHNSV ESTAB PT 1/> CONTRACEP S4993 [facility] DEBO CO TIVE 9 HEALTH HEALTH PILLS FOR [facility] ACCT T CONTROL RADEX 79598 [facility] WRIST 9 [facility] COMPLETE INC INC MINIMUM 3 VIEWS RADEX 30190 [facility] FINGR 9 [facility] MINIMUM 2 INC INC VIEWS URINE 88417 [facility] 9 [facility] TEST INC INC VISUAL COLOR CMPRSN METHS US BREAST 33480 [facility] REAL 9 [facility] TIME INC INC W/IMAGE DOCUMENTA TION BRNCDILAT 28134 [facility] RSPSE 8 [facility] SPMTRY INC INC PRE&POST- BRNCDILAT ADMN FUNCTIONA 92006 [facility] L 8 [facility] RESIDUAL INC INC CAPACITY OR RESIDUAL VOLUME DETER 73104 [facility] MALDISTRI 8 [facility] BJ OF INC INC INSPIRED GAS N WSHOT CURVE DETER 60293 [facility] SANTIAG[facility] AIRWY 8 [facility] CLOSING INC INC VOL 1 BRTH TSTS PRESSURIZ 31907 [facility] SANTI[facility] ED/NONPRE 8 [facility] SSURIZED [place] [address] [facility] FAB, ABDOMINAL 8 MEDICAL JASMIN P REAL IMAGING TIME ASSOCIATE W/IMAGE S LIMITED RADEX 99470 [place], UPPER GI 8 MEDICAL SHAHAB W/WO IMAGING GLUCAGON/ ASSOCIATE DELAY S IMAGES W/KUB ECG 46190 [facility] S[facility] ROUTINE 8 [facility] ECG INC INC W/LEAST 12 LDS TRCG ONLY W/O I&R RADIOLOGI 38424 [place] [facility] C EXAM 8 MEDICAL SHAHAB CHEST 2 IMAGING VIEWS ASSOCIATE FRONTAL&L S ATERAL ECG 57575 [facility] EWING, ROUTINE 8 [facility] W/LEAST PROF SERV 12 LDS I&R ONLY DETERMINA 45165 MARQUIS OLVERA TIGAUTAM 8 RUFINA Lopez REFRACTIV OD E STATE FRAMES V2020 MARQUIS OLVERA, PURCHASES 8 RUFINA Lopez OD 1 VISN V2103 MARQUIS OLVERA PLANO 8 RUFINA Lopez TO+/-4.00 OD D SPHER 0.12-2.00 D CYL EA FITTING 12395 MARQUIS OLVERA SPECTACLE 8 RUFINA Lopez S XCPT OD APHAKIA MONOFOCAL OPHTH 20143 MARQUIS OLVERA, MEDICAL 8 RUFINA Lopez XM&EVAL OD COMPRHNSV ESTAB PT 1/> CREATINE 62533 [facility] SANTI[facility] KINASE MB 8 [facility] FRACTION INC INC ONLY URINE 36099 [facility] S[facility] 8 [facility] TEST INC INC VISUAL COLOR CMPRSN METHS BASIC 59166 [facility] METABOLIC 8 [facility] PANEL INC INC CALCIUM TOTAL 3D 74274 YEE ANGELICA, RENDERING 8 MEDICAL SHAHAB IMAGING W/INTERP& ASSOCIATE POSTPROC S DIFF WORK STATION FIBRIN 31850 [facility] S[facility]AG[facility] DGRADJ 8 [facility]OS[facility] PRODUCTS INC INC D-DIMER QUAL/SEMI VENICE CREATINE 54043 [facility] KINASE 8 [facility] TOTAL INC INC SEDIMENTA 59092 [facility] SANTIAG[facility] TION RATE 8 [facility]OS[facility] RBC INC INC NON-AUTOM ATED BLOOD 16312 [facility] SANTIAGO COUNT 8 [facility]OS[facility] COMPLETE INC INC AUTO&AUTO DIFRNTL WBC RADIOLOGI 10234 [facility] SANTIAGO C EXAM 8 [facility] CHEST 2 INC INC VIEWS FRONTAL&[place] [address] P[facility] SANTIAG[facility] TROPONIN 8 [facility] HOSP QUANTITAT INC INC SHILPI CT THORAX 76912 [facility]A SANTIAGO W/O 8 [facility] HOSP CONTRAST INC INC MATERIAL Encounters Encounter Start End Date Code Location Performer Type Date PERIODIC 66975 ABIGAIL HAYES PREVENTIV [address] [facility] PATIENT DEPT. DEPT. 18-39 YRS EMERGENCY 05314 [facility] 6 6 [facility] EMERGENCY T VISIT PHYS HIGH/URGE NT SEVERITY OFFICE 08059 JOSEY HATHAWAYPATIEN 2 2 CO CO T VISIT [facility] [address] [place] [address] MINUTES OFFICE 65485 GAYATHRI TRINH OUTPATIEN 2 2 MARSHALL MARSHALL T VISIT 15 MINUTES OFFICE 78617 AWOSIKA AWOSIKA OUTPATIEN 2 2 ABEL ABEL T NEW 30 MINUTES OFFICE 70951 JOSEY VELÁZQUEZ 1 1 CO CO T VISIT [address] [facility] - 1 1 [facility] OUTPATIEN INC T EMERGENCY 27276 P[facility] 1 1 [facility] INC T VISIT HIGH/URGE NT SEVERITY PERIODIC 79421 JOSEY DOWLING PREVENTIV 1 1 CO CO E MED EST HEALTH HEALTH PATIENT DEPARTME DEPARTME 18-39 YRS OFFICE 97721 GAYATHRI VELÁZQEUZ 1 1 MARSHALL MARSHLAL T VISIT 15 MINUTES EMERGENCY 92239 ARIN CRUZ 1 1 EMERGENCY DEPARTMEN SERVICES T VISIT HIGH/URGE NT SEVERITY [facility]OSPITAL [facility] - 1 1 [facility] OUTPATIEN INC T EMERGENCY 15195 [facility] 1 1 [facility] DEPARTMEN INC T VISIT LOW/MODER SEVERITY OFFICE 88648 JOSEY VELÁZQUEZ 1 1 CO CO T VISIT HEALTH HEALTH 10 DEPARTNV DEPARTNV MINUTES OFFICE 55431 JOSEY MARTINEN 1 1 CO CO T VISIT HEALTH HEALTH 10 DEPARTNV DEPARTNV MINUTES OFFICE 26508 [facility] PETTEY CONSULTAT 1 1 PHYSICIAN SANDRA ALFARO NEW/ESTAB PATIENT 60 MIN OFFICE 62655 GAYATHRI VELÁZQUEZ 1 1 MARSHALL MARSHALL T VISIT 15 MINUTES HOSPITAL [facility] - 1 1 [facility] OUTPATIEN INC T EMERGENCY 86060 ARIN BRIGGS 1 1 EMERGENCY DEPARTMEN SERVICES T VISIT HIGH/URGE NT SEVERITY EMERGENCY 79571 [facility] 1 1 [facility] DEPARTMEN INC T VISIT LOW/MODER SEVERITY PERIODIC 70883 JOSEY DOWLING PREVENTIV 0 0 CO CO E MED EST HEALTH HEALTH PATIENT DEPARTME DEPARTME 12-17YRS EMERGENCY 12956 ARIN LEDBETTER, DEPT 0 0 EMERGENCY NITIN S VISIT SERVICES HIGH SEVERITY& ASSOCIATE THREAT S [facility] PAMELA - 0 0 [facility] OUTPATIEN INC T EMERGENCY 64710 [facility] 0 0 [facility] DEPARTMEN INC T VISIT HIGH/URGE NT SEVERITY OFFICE 58943 GAYATHRI TRINH OUTPATIEN 0 0 SUNDEEP Bal SUNDEEP Valeriano T VISIT 15 MINUTES OFFICE 63739 JOSEY VELÁZQUEZ 0 0 CO CO T VISIT [facility] 10 DEPARTMEN DEPARTMEN MINUTES T T OFFICE 89914 GAYATHRI TRINH OUTPATIEN 0 0 SUNDEEP Bal T VISIT 15 MINUTES OFFICE 53182 GAYATHRI TRINH OUTPATIEN 0 0 SUNDEEP URBANO W T VISIT 15 MINUTES HOSPITAL [facility] - 0 0 [facility] OUTPATIEN INC T EMERGENCY 67347 ARIN LEDBETTER, 0 0 EMERGENCY [facility] SERVICES T VISIT HIGH/URGE ASSOCIATE NT S SEVERITY EMERGENCY 59286 [facility] 0 0 [facility] DEPARTMEN INC T VISIT MODERATE SEVERITY HOSPITAL [facility] - 0 0 [facility] OUTPATIEN INC T EMERGENCY 00612 ARIN RENTERIA 0 0 EMERGENCY [facility] SERVICES SHANELLE T VISIT HIGH/URGE ASSOCIATE NT S SEVERITY HOSPITAL [facility] - 9 9 [facility] OUTPATIEN INC T EMERGENCY 92956 ARIN LEDBETTER, 9 9 EMERGENCY [facility] SERVICES T VISIT HIGH/URGE ASSOCIATE NT S SEVERITY EMERGENCY [id number] [facility] 9 9 [facility] DEPARTMEN INC T VISIT LOW/MODER SEVERITY OFFICE 87835 DHS/CO JOSEY VELÁZQUEZ 9 9 HEALTH CO T VISIT [facility] 10 [facility] DEPARTMEN MINUTES T OFFICE 56823 RYAN DAVIS OUTPATIEN 9 9 NAIMA A NAIMA A T VISIT 15 MINUTES EMERGENCY 66822 ARIN LEDBETTER, 9 9 EMERGENCY [facility] SERVICES T VISIT HIGH/URGE ASSOCIATE NT S SEVERITY EMERGENCY 37414 [facility] 9 9 [facility] DEPARTMEN INC T VISIT MODERATE SEVERITY [facility] - 9 9 [facility] OUTPATIEN INC T PERIODIC 96457 DHS/CO DOWLING PREVENTIV 9 9 HEALTH CO E MED EST [facility] PATIENT BANK ACCT DEPARTMEN [id number] T OFFICE 79541 DHS/CO DEBO CO OUTPATIEN 9 9 HEALTH HEALTH T NEW 10 [facility] DEPARTMEN MINUTES BANK ACCT T OFFICE 44900 RYAN DAVIS OUTPATIEN 9 9 NAIMA A NAIMA A T VISIT 15 MINUTES EMERGENCY 07622 ARIN HATFIELD, 9 9 EMERGENCY [facility] T VISIT MODERATE ASSOCIATE SEVERITY S [facility]OSP[facility] - 9 9 [facility] OUTPATIEN INC T EMERGENCY 21694 [facility] 9 9 [facility] DEPARTMEN INC T VISIT LOW/MODER SEVERITY [facility] - 9 9 [facility] OUTPATIEN INC T OFFICE 28416 DHS/CO DOWLING OUTPATIEN 9 9 HEALTH CO T VISIT [facility] 15 BANK ACCT DEPARTMEN MINUTES T OFFICE [id number] RYAN DAVIS OUTPATIEN 9 9 NAIMA A NAIMA A T VISIT 15 MINUTES OFFICE 99353 RYAN DAVIS OUTPATIEN 9 9 NAIMA A NAIMA A T VISIT 15 MINUTES OFFICE 76653 MELANIA CLAIRE 8 8 [facility] T VISIT INTERNAL 15 MED MINUTES [facility] - 8 8 [facility] OUT[facility] INC T OFFICE 09148 MELANIA CLAIRE 8 8 [facility] T VISIT INTERNAL 15 MED MINUTES [facility] - 8 8 [facility] OUT[facility] INC T OFFICE 68098 RYAN DAVIS OUTPATIEN 8 8 NAMIA A NAIMA A T VISIT 15 MINUTES OFFICE 75088 RYAN DAVIS OUTPATIEN 8 8 NAIMA A NAIMA A T VISIT 15 MINUTES [facility] - 8 8 [facility] 25162 RYAN DAVIS OUTPATIEN 8 8 NAIMA A NAIMA A T VISIT 15 MINUTES OFFICE 40336 RYAN DAVIS OUTPATIEN 8 8 NAIMA A NAIMA A T VISIT 15 MINUTES OFFICE 68777 RYAN DAVIS OUTPATIEN 8 8 NAIMA A NAIMA A T VISIT 15 MINUTES OFFICE 41792 RYAN DAVIS OUTPATIEN 8 8 NAIMA A NAIMA A T VISIT 15 MINUTES EMERGENCY 83708 [facility] 8 8 [facility] T VISIT MODERATE SEVERITY [facility] - 8 8 [facility]
--- OUTSIDE RECORDS SUMMARY | 2017-05-16 14:59 | External Medical Summary Rpt ---
Author Author , ROBERT JONES Address Unknown Phone [email or web address] Care Team Providers Care Digital Strategy Manager Name Role Phone GAYATHRI MARSHALL, ARNOLD Unavailable Unavailable MARSHALL ARNOLD MARSHALL, ARNOLD Unavailable Unavailable MARSHALL GAYATHRI, SUNDEEP W, Unavailable Unavailable ARNOLD, SUNDEEP W AWOSIKA, AWOSIKA Unavailable Unavailable AWOSIKA, AWOSIKA Unavailable Unavailable AWOSIKA ABEL, AWOSIKA Unavailable Unavailable ABEL AWOSIKA ABEL, AWOSIKA Unavailable Unavailable ABEL [facility] Unavailable Unavailable HEALTH C, [facility] ANGELICA ROBERT, Unavailable Unavailable ANGELICA ROBERT SHAHAB DOMINGUEZ, Unavailable Unavailable ANGELICA SHAHAB [facility] Un[facility] Un[facility], Unavailable Unavailable [facility] [place]available [place], [facility] [place] [facility] [facility] [facility] [place] [facility] Unavailable Unavailable [facility], Unavailable Unavailable [facility] Unavailable Unavailable DEPT., [facility] DEPT. [facility] Unavailable Unavailable DEPT., [facility] DEPT. NITIN LEDBETTER, Unavailable Unavailable NITIN LEDBETTER GRAY ROB Unavailable Unavailable [facility] Un[facility] Un[facility], [facility] KEVIN BURGESS HARVEY, Unavailable Unavailable KEVIN [facility], Unavailable Unavailable [facility], [facility] ALHAJI EWING, Unavailable Unavailable ALHAJI EWING [facility] Unavailable Unavailable SERVICES, [facility] Unavailable Unavailable DEPARTMENT, [facility] DEPARTMENT JASMIN SANON, Unavailable Unavailable JASMIN SANON JOE A, Unavailable Unavailable NAIMA DAVIS PETTEHaydee JAM, PETTEY Unavailable Unavailable JAM RADHA JEA, RADHA Unavailable Unavailable JEA [id number], Unavailable Unavailable [id number] Unavailable Unavailable DEPARTME, [facility] Unavailable Unavailable DEPARTME, [facility] Unavailable Unavailable DEPARTMENT, [facility] MAY SAEED Unavailable Unavailable SAULO KHAN, Unavailable Unavailable SAULO OLVERA SOKAN BAB, SOKAN BAB Unavailable Unavailable SOKAN, CHEKO O, Unavailable Unavailable SOKAN, CHEKO O [facility] Unavailable Unavailable EMERGENCY PHYS, [facility] SHANELLE RENTERIA III, Unavailable Unavailable SHANELLE RENTERIA III Purpose Continuity of Care Document - 10-31-2007 through 2016 Problems Code Diagnosis DOS Provider Status [id number] MYOPIA 03-09-2017 AWOSIKA BILATERAL [id number] UNSPECIFIED 03-09-2017 AWOSIKA ASTIGMATISM BILATERAL [id number] ENCOUNTER 08-17-2016 [place] ADDICTION PROFESSIONAL EXAM [facility] W/O DEPT. ABNORMAL FIND Z3044 ENCOUNTR 08-17-2016 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-02-2011 AWOSIKA ABEL NERVE FIBER BUNDLE DEFECTS 3671 MYOPIA 11-02-2011 AWOSIKA ABEL 82913 OTHER 11-02-2011 AWOSIKA ABEL CHRONIC ALLERGIC CONJUNCTIVI TIS 6264 IRREGULAR 08-04-2011 [place] MENSTRUAL [place] HEALTH CYCLE DEPARTME 50248 HORDEOLUM 06-29-2011 [facility] 75399 PAINFUL 06-29-2011 [facility] 43040 OTHER CHEST 06-29-2011 [facility] V7231 ROUTINE 06-27-2011 [place] GYNECOLOGIC [place] HEALTH AL DEPARTME EXAMINATION 4619 ACUTE 04-11-2011 ARNOLD MARSHALL SINUSITIS, UNSPECIFIED 8470 NECK SPRAIN 04-02-2011 [facility] AND STRAIN [facility]ERG[facility] SERVICES 64439 CONTUSION 12-10-2010 [facility] 95226 PAIN IN 12-09-2010 ARNOLD MARSHALL JOINT, LOWER LEG 8449 SPRAIN&STRA 12-02-2010 [facility] IN OF MEM HOS[facility] UNSPECIFIED INC SITE OF KNEE&LEG 08857 REGULAR 08-20-2010 [facility] 57576 ABDOMINAL 05-12-2010 [place] [facility], MEDICAL UNSPECIFIED IMAGING ASS SITE 02133 ABDOMINAL 05-12-2010 [facility] PAIN, EMERGENCY GENERALIZED SERVICES ASSOCIATES 38740 UNSPECIFIED 04-27-2010 GAYATHRI INFECTIVE SUNDEEP Bal OTITIS EXTERNA 4660 ACUTE 02-20-2010 GAYATHRI, BRONCHITIS SUNDEEP W 98975 ASTHMA 10-25-2009 [facility] UNSPECIFIED [facility]ERGENCY WITH SERVICES EXACERBATIO ASSOCIATES N 00627 ASTHMA, 09-17-2009 [facility] UNSPECIFIED EMERGENCY , SERVICES UNSPECIFIED ASSOCIATES STATUS 7862 COUGH 09-17-2009 [facility] 5110 PLEURISY 07-10-2009 [facility] WITHOUT EMERGENCY MENTION SERVICES EFFUS/CURRE ASSOCIATES NT TB 514 PULMONARY 07-10-2009 [place] [facility] HYPOSTASIS ASSOCIATES V720 EXAMINATION 06-04-2009 MARQUIS Valdez OF EYES RUFINA OD AND VISION V2503 ENCOUNTER 05-22-2009 [facility] EMERGENCY HEALTH CONTRACEPT CENTRAL CNSL&PRESCR BANK ACCT IPTION 9595 INJURY 05-01-2009 DAVIS, OTHER AND NAIMA A UNSPECIFIED FINGER 89017 PAIN IN 04-29-2009 [facility] JOINT, EMERGENCY FOREARM SERVICES ASSOCIATES 60991 OTHER HAND 04-29-2009 [place] SPRAIN AND MEDICAL STRAIN IMAGING [facility] E8498 OTHER 04-29-[address] [place] [address] OF IMAGING OCCURRENCE ASSOCIATES E9170 STRIKE 04-29-2009 [place] AGNST/STRUC MEDICAL K ACC IMAGING SPORTS W/O ASSOCIATES SUBSQT FALL 26182 LUMP OR 01-13-2009 [place] MASS IN MEDICAL BREAST IMAGING [facility] 4779 ALLERGIC 12-27-2008 DAVIS, RHINITIS NAIMA A CAUSE UNSPECIFIED 4640 ACUTE 12-10-2008 DAVIS, LARYNGITIS NAIMA A 62132 COUGH 07-16-2008 [place] [facility] AST[facility]MA INTERNAL MED 93748 OTHER 07-07-2008 [place] [facility] [place] [address] UNSPECIFIED 07-02-2008 [place] RES[facility] INTERNAL MED ABNORMALITY 63020 ABDOMINAL 06-19-2008 [facility], MEDICAL EPIGASTRIC IMAGING [facility]OCI[facility] 19496 CHEST PAIN 06-14-2008 [place] UNSPECIFIED [facility] PROF SERV 5118 PLEURISY 10-31-2007 [facility] W/OTH SPEC [facility] FORMS EFFUS INC NO TUBERCULOUS 7931 NONSPEC 10-31-2007 [facility] OT EXAM IMAGING BODY STRUCT ASSOCIATES [...] 7- 3- 00 SI 03 LD ve ND 02 20 20 DE ED 20 10 [...] 7- 7- 00 SI 03 LD ve ND 02 20 20 DE ED 20 10 [...] 3- 5- 00 SI 19 LD ve ND 02 20 20 DE ED 20 10 [...] 8- 7- 00 SI 82 Av ve ND 50 20 20 DE ai AM 91 [...] 20 20 DE LI 30 10 10 DE N 5 PH CH 50 AR AE [...] 8- 4- 00 SI 82 Av ve ND 00 20 20 DE ai AM 70 [...] 0 7. 10 EA 18 AR Ac ND 06 -1 -[address] 33 NO [...] 8- 6- 00 SI 82 Av ve ND 00 20 20 DE ai AM 70 [...] 2- 2- 00 SI 97 Av ve ND 34 20 20 DE ai AM 40 10 10 la 5 PH bl HB AR e R MA 40 CY MG OF TA CY BL NT ET HI AN A ME 00 05 05 0 21 6 EA 17 GA Ac TH 78 -0 -[address] 43 IN ti YL 15 2- 2- 00 SI 20 EY ve ND 02 20 20 DE ED 20 10 10 DE NI 7 PH CH SO AR AE LO MA L NE CY S 4 OF MG CY DO NT SE HI PK AN A AZ 00 05 05 0 6. 5 EA 17 GA Ac IT 09 -0 -[address] 43 IN ti HR 37 2- 2- 0 SI 21 EY ve OM 14 20 20 DE YC 61 10 10 DE IN 8 PH CH AR AE 25 [...] 2- 3- 00 SI 97 Av ve ND 34 20 20 DE ai AM 40 [...] 2- 2- 00 S 00 Av ve ND 34 20 20 PH 9 ai AM [...] 3- 1- 00 SI 19 LD ve ND 02 20 20 DE ED 20 10 10 RI NI 7 PH CH SO AR AR LO MA D NE CY W 4 OF MG CY NT DO HI SE AN PK A CI 55 02 02 00 15 15 DE 63 No Ac TA 11 -0 -1 .0 AN 90 t ti LO 10 2- 1- 00 S 86 Av ve ND 34 20 20 PH 0 ai AM [...] CY BL NT ET HI AN A ND 00 01 01 00 10 5 EA [...] 8- 4- 00 S 35 Av ve ND 34 20 20 PH 4 ai AM [...] 8- 7- 00 S 35 Av ve ND 34 20 20 PH 4 ai AM 40 09 09 AR la 1 MA bl HB CY e R 40 MG TA BL ET ME 00 12 12 00 21 6 RI 81 GA Ac TH 60 -0 -1 .0 TE 16 IN ti YL 34 3- 7- 00 42 EY ve ND 59 20 20 AI ED 31 09 09 D DE NI 5 PH CH SO AR AE LO M L NE #3 S 4 93 8 MG DO SE PK AZ 59 12 12 00 6. 5 RI 81 GA Ac IT 76 -0 -1 00 TE 16 IN ti HR 23 3- 7- 0 43 EY ve OM 06 20 20 AI YC 00 09 09 D DE IN 1 PH CH AR AE 25 [...] 0- 9- 00 S 05 Av ve ND 34 20 20 PH 3 ai AM [...] 6- 8- 00 SI 34 EY ve ND 02 20 20 DE ED 20 09 09 DE NI 7 PH CH SO AR AE LO MA L NE CY S 4 OF MG CY NT DO HI SE AN PK A AZ 00 09 10 00 6. 6 EA 14 GA Ac IT 09 -2 -[address] 43 IN ti HR 37 6- 8- 0 SI 35 EY ve OM 14 20 20 DE YC 61 09 09 DE IN 8 PH CH AR AE 25 [...] Procedure DOS Code Location Performer Comment OPH 07895 [facility] 7 XM&EVAL COMPRHNSV ESTAB PT 1/> DETERMINA 23734 [facility] TION 2 ABEL ABEL REFRACTIV E STATE RX&FITG 52719 [facility] C-LENS 2 ABEL ABEL SUPVJ CRNL LENS OU XCPT APHK FUNDUS 66006 [facility] PHOTOGRAP 2 ABEL ABEL HY W/INTERPR ETATION & REPORT CONTRACEP S4993 JOSEY D[facility] TIVE 1 CO TX PILLS FOR HEALTH HEALTH DEPARTME DEPARTME CONTROL URINE 98436 [facility] S[facility]AG[facility] 1 [facility] TEST INC INC VISUAL COLOR CMPRSN METHS CULTURE 35014 [facility] S[facility] BACTERIAL 1 [facility] INC INC QUANTTATI VE COLONY COUNT URINE RADEX 53367 [place] [facility] RIBS UNI 1 MEDICAL ROBERT W/POSTERO IMAGING ANT CH ASS MINIMUM 3 VIEWS URNLS DIP 98011 [facility] 1 [facility] STICK/TAB INC INC LET REAGENT AUTO MICROSCOP Y BLOOD 36885 [facility] SANTIAG[facility] COUNT 1 [facility] COMPLETE INC INC AUTO&AUTO DIFRNTL WBC RADIOLOGI 60983 [place] AN[place] C EXAM 1 MEDICAL ROBERT CHEST 2 IMAGING VIEWS ASS FRONTAL&[place] [address] [facility] SANTIAGO INFUSION 1 [facility] THERAPY/P INC INC ROPHYLAXI S /DX 1ST TO 1 HR COMPREHEN 03912 [facility] SIVE 1 [facility] [place] [address] [facility] LIPASE 1 [facility] INC INC IADNA 55307 JOSEY DOW[facility] CHLAMYDIA 1 CO TX HEALTH HEALTH TRACHOMAT DEPARTME DEPARTME IS AMPLIFIED PROBE TQ IADNA 87292 JOSEY D[facility] NEISSERIA 1 CO CO HEALTH HEALTH GONORRHOE [facility] AE AMPLIFIED PROBE TQ CONTRACEP S4993 JOSEY BLANCOON TIVE 1 CO CO PILLS FOR HEALTH HEALTH [facility] CONTROL RADIOLOGI 06676 YEE GRIGSBYCHER C 1 MEDICAL ROBERT EXAMINATI IMAGING ON NECK ASS SOFT TISSUE URINE 36809 PAM[facility]A SANTIAGO 1 [facility] TEST INC INC VISUAL COLOR CMPRSN METHS CONTRACEP S4993 DOW[facility] DOWLING TIVE 1 CO CO PILLS FOR HEALTH HEALTH [facility] CONTROL CONTRACEP S4993 [facility] DOWLING TIVE 1 CO CO PILLS FOR HEALTH HEALTH [facility] CONTROL RADIOLOGI 49596 YEE DOMINGUEZ C 1 MEDICAL ROBERT EXAMINATI IMAGING ON KNEE 3 ASS VIEWS KNEE L1830 [facility] ORTHOSIS 1 IMMOBLIZE R CANVAS LONGTUDNL PREFAB 1 VISN V2104 [facility] AMY PLANO-+/- 0 ASSOCIATE DEEJAY 4.00D S SPHER 2.12-4.00 D CYL EA OPHTH 92053 [facility] OLVERA MEDICAL 0 ASSOCIATE DEEJAY VILLAR&EVDESHAWN Rodriguez COMPRHNSV ESTAB PT 1/> FITTING 84793 [facility] MAY SPECTACLE 0 ASSOCIATE DEEJAY Rodriguez XCPT S APHAKIA MONOFOCAL DETERMINA 80830 [facility] MAY TION 0 ASSOCIATE VILLALBA REFRACTIV S E STATE FRAMES V2020 [facility] PURCHASES 0 ASSOCIATE DEEJAY Rodriguez IADNA 51288 JO[facility]Y [facility] CHLAMYDIA 0 CO CO HEALTH HEALTH TRACHOMAT [facility] IS AMPLIFIED PROBE TQ CONTRACEP S4993 JOSEY D[facility] TIVE 0 CO CO PILLS FOR HEALTH HEALTH [facility] CONTROL IADNA 35061 JOSEY D[facility] NEISSERIA 0 CO CO HEALTH HEALTH GONORRHOE [facility] [place] [place] [address] PAMEL[facility] RAMACHANDRANON INFUSION 0 [facility] THERAPY/P INC INC ROPHYLAXI S /DX 1ST TO 1 HR URNLS DIP 77389 [facility] PAMELA 0 [facility] STICK/TAB INC INC LET REAGENT AUTO MICROSCOP Y BLOOD 99135 [facility] SANTIAGO COUNT 0 [facility] COMPLETE INC INC AUTO&AUTO DIFRNTL WBC URINE 08060 [facility] 0 [facility] TEST INC INC VISUAL COLOR CMPRSN METHS CT PELVIS 90270 [place] [facility] W/O 0 MEDICAL ROBERT CONTRAST IMAGING MATERIAL ASS 3D 16201 [place] [facility] RENDERING 0 MEDICAL ROBERT IMAGING W/INTERP& ASS POSTPROC DIFF WORK STATION COMPREHEN 87092 [facility] S[facility] SIVE 0 [facility] [address] [facility]A SANTIAGO AMYLASE 0 [place] [address] [place] [facility] ABDOMEN 0 MEDICAL ROBERT W/[place] [address] [facility] SANT[facility] LIPASE 0 [facility] INC INC CONTRACEP S4993 JOSEY D[facility] TIVE 0 CO CO PILLS FOR HEALTH HEALTH DEPARTMEN DEPARTMEN CONTROL T T URNLS DIP 89314 [facility] SANTIAGO 0 [facility] STICK/TAB INC INC LET REAGENT AUTO MICROSCOP Y URINE 29298 [facility] SANTIAGO 0 [facility] TEST INC INC [place] [address] PAMELA SANTIAGO STREPTOCO 0 [facility] CCUS INC INC GROUP A URINE 37954 [facility] SANTIAGO 9 [facility] TEST INC INC VISUAL COLOR CMPRSN METHS URNLS DIP 46716 [facility] RAMACHANDRANON 9 [facility] STICK/TAB INC INC LET REAGENT AUTO MICROSCOP Y RADIOLOGI 69445 [facility] MARTINE[facility] EXAM 9 MEDICAL SHAHAB CHEST 2 IMAGING VIEWS ASSOCIATE FRONTAL&L S ATERAL CONTRACEP S4993 [facility] TIVE 9 HEALTH CO PILLS FOR [facility] BANK ACCT DEPARTMEN CONTROL T RADIOLOGI 65283 Bhavana BIRD EXAM 9 MEDICAL JASMIN P CHEST 2 IMAGING VIEWS ASSOCIATE FRONTAL&L S ATERAL IAADI 96719 [facility] SANTIAG[facility] INFLUENZA 9 [facility] B VIRUS INC INC IAADI 77637 [facility] SANTIAG[facility] INFFLUENZ 9 [facility] A A VIRUS INC INC URINE 40956 [facility] SANTIAGO 9 [facility] TEST INC INC VISUAL COLOR CMPRSN METHS CONTRACEP S4993 [facility] TIVE 9 HEALTH CO [facility] ACCT DEPARTMEN CONTROL T DETERMINA 53170 MARQUIS OLVERA TION 9 RUFINA Lopez REFRACTIV OD E STATE FRAMES V2020 MARQUIS OLVERA, PURCHASES 9 RUFINA Lopez OD 1 VISN V2104 MARQUIS OLVERA, PLANO-+/- 9 RUFINA Lopez 4.00D OD SPHER 2.12-4.00 D CYL EA FITTING 76665 MARQUIS OLVERA, SPECTACLE 9 RUFINA Lopez S XCPT OD APHAKIA MONOFOCAL OPHTH 76582 MARQUIS OLVERA, MEDICAL 9 RUFINA VERNON T XM&EVAL OD COMPRHNSV ESTAB PT 1/> CONTRACEP S4993 [facility] DEBO CO TIVE 9 [facility]ALTH [facility] ACCT T CONTROL RADEX 41002 [facility] SANTI[facility] WRIST 9 [facility] COMPLETE INC INC MINIMUM 3 VIEWS RADEX 88933 [facility] S[facility] FINGR 9 [facility] MINIMUM 2 INC INC VIEWS URINE 86210 [facility] SANTIAGO 9 [facility] TEST INC INC VISUAL COLOR CMPRSN METHS US BREAST 76736 [facility] SANTIAG[facility] REAL 9 [facility] TIME INC INC W/IMAGE DOCUMENTA TION BRNCDILAT 53661 [facility] RSPSE 8 [facility] SPMTRY INC INC PRE&POST- BRNCDILAT ADMN FUNCTIONA 40414 [facility] SANTIAG[facility] L 8 [facility] RESIDUAL INC INC CAPACITY OR RESIDUAL VOLUME DETER 26016 [facility] SANTIAG[facility] MALDISTRI 8 [facility] BJ OF INC INC INSPIRED GAS N WSHOT CURVE DETER 51246 [facility] SANTIAGO AIRWY 8 [facility] CLOSING INC INC VOL 1 BRTH TSTS PRESSURIZ 05532 [facility] SANTIAGO ED/NONPRE 8 [facility] [place] [address] [facility] F[facility], ABDOMINAL 8 MEDICAL JASMIN P REAL IMAGING TIME ASSOCIATE W/IMAGE S LIMITED RADEX 00383 [place], UPPER GI 8 MEDICAL SHAHAB W/WO IMAGING GLUCAGON/ ASSOCIATE DELAY S IMAGES W/KUB ECG 11426 [facility] SANTIAGO ROUTINE 8 [facility] ECG INC INC W/LEAST 12 LDS TRCG ONLY W/O I&R RADIOLOGI 64075 [place] C EXAM 8 MEDICAL SHAHAB CHEST 2 IMAGING VIEWS ASSOCIATE FRONTAL&L S ATERAL ECG 67420 PAMELA EWING, ROUTINE 8 [facility] W/LEAST PROF SERV 12 LDS I&R ONLY DETERMINA 05535 MARQUIS OLVERA TIGAUTAM 8 RUFINA Lopez REFRACTIV OD E STATE FRAMES V2020 MARQUIS OLVERA, PURCHASES 8 RUFINA Lopez OD 1 VISN V2103 MARQUIS OLVERA PLANO 8 RUFINA Lopez TO+/-4.00 OD D SPHER 0.12-2.00 D CYL EA FITTING 59689 MARQUIS OLVERA SPECTACLE 8 RUFINA Lopez S XCPT OD APHAKIA MONOFOCAL OPHTH 06291 MARQUIS OLVERA, MEDICAL 8 RUFINA Lopez XM&EVAL OD COMPRHNSV ESTAB PT 1/> CREATINE 64107 [facility] SANTIAGO KINASE MB 8 [facility] FRACTION INC INC ONLY URINE 22652 [facility] SANTIAGO 8 [facility] TEST INC INC VISUAL COLOR CMPRSN METHS BASIC 89112 [facility] SANTIAG[facility] METABOLIC 8 [facility] PANEL INC INC CALCIUM TOTAL 3D 12269 YEE ANGELICA, RENDERING 8 MEDICAL SHAHAB IMAGING W/INTERP& ASSOCIATE POSTPROC S DIFF WORK STATION FIBRIN 31037 PAMELA SANTIAGO DGRADJ 8 [facility] PRODUCTS INC INC D-DIMER QUAL/SEMI VENICE CREATINE 07910 [facility] SANTIAGO KINASE 8 [facility] TOTAL INC INC SEDIMENTA 71782 PAMELA SANTIAGO TION RATE 8 [facility] RBC INC INC NON-AUTOM ATED BLOOD 45626 PAMELA SANTIAGO COUNT 8 [facility] COMPLETE INC INC AUTO&AUTO DIFRNTL WBC RADIOLOGI 70882 PAMELA SANTIAGO C EXAM 8 [facility] CHEST 2 INC INC VIEWS FRONTAL&[place] [address] PAMELA SANTIAGO TROPONIN 8 [facility] QUANTITAT INC INC SHILPI CT THORAX 68265 PAMELA SANTIAGO W/O 8 [facility] CONTRAST INC INC MATERIAL Encounters Encounter Start End Date Code Location Performer Type Date PERIODIC 61649 ABIGAIL HAYES PREVENTIV 6 6 PATIENT DEPT. DEPT. 18-39 YRS EMERGENCY 27596 [facility] 6 6 [facility] EMERGENCY T VISIT PHYS HIGH/URGE NT SEVERITY OFFICE 61009 JOSEY HATHAWAYPATIEN 2 2 CO CO T VISIT [facility]ALTH [address] [place] [address] MINUTES OFFICE 15667 GAYATHRI TRINH OUTPATIEN 2 2 MARSHALL MARSHALL T VISIT 15 MINUTES OFFICE 90002 AWOSIKA AWOSIKA OUTPATIEN 2 2 ABEL ABEL T NEW 30 MINUTES OFFICE 37309 JOSEY VELÁZQUEZ 1 1 CO CO T VISIT [address] [facility] PAMELA - 1 1 [facility] OUTPATIEN INC T EMERGENCY 87778 PAMELA 1 1 [facility] INC T VISIT HIGH/URGE NT SEVERITY PERIODIC 17498 JOSEY DOWLING PREVENTIV 1 1 CO CO E MED EST HEALTH HEALTH PATIENT DEPARTME DEPARTME 18-39 YRS OFFICE 45934 GAYATHRI VELÁZQUEZ 1 1 MARSHALL MARSHALL T VISIT 15 MINUTES EMERGENCY 75960 ARIN CRUZ 1 1 EMERGENCY DEPARTMEN SERVICES T VISIT HIGH/URGE NT SEVERITY HOSPITAL P[facility]ELA - 1 1 [facility] OUTPATIEN INC T EMERGENCY 50304 PAMELA 1 1 [facility] DEPARTMEN INC T VISIT LOW/MODER SEVERITY OFFICE 32160 JOSEY VELÁZQUEZ 1 1 CO CO T VISIT HEALTH HEALTH 10 DEPARTMA DEPARTMA MINUTES OFFICE 17089 JOSEY MARTINEN 1 1 CO CO T VISIT HEALTH HEALTH 10 DEPARTMA DEPARTMA MINUTES OFFICE 25956 [facility] PETTEY CONSULTAT 1 1 PHYSICIAN SANDRA ALFARO NEW/ESTAB PATIENT 60 MIN OFFICE 99211 GAYATHRI VELÁZQUEZ 1 1 MARSHALL MARSHALL T VISIT 15 MINUTES HOSPITAL PAMELA - 1 1 [facility] OUTPATIEN INC T EMERGENCY 12917 ARIN BRIGGS 1 1 EMERGENCY DEPARTMEN SERVICES T VISIT HIGH/URGE NT SEVERITY EMERGENCY 99568 PAMELA 1 1 [facility] DEPARTMEN INC T VISIT LOW/MODER SEVERITY PERIODIC 59749 JOSEY DOWLING PREVENTIV 0 0 CO CO E MED EST HEALTH HEALTH PATIENT DEPARTME DEPARTME 12-17YRS EMERGENCY 55351 ARIN LEDBETTER, DEPT 0 0 EMERGENCY NITIN S VISIT SERVICES HIGH SEVERITY& ASSOCIATE THREAT S [facility] PAMELA - 0 0 [facility] OUTPATIEN INC T EMERGENCY 60517 PAMELA 0 0 [facility] DEPARTMEN INC T VISIT HIGH/URGE NT SEVERITY OFFICE 83588 GAYATHRI TRINH OUTPATIEN 0 0 SUNDEEP Bal SUNDEEP Valeriano T VISIT 15 MINUTES OFFICE 47596 JOSEY VELÁZQUEZ 0 0 CO CO T VISIT [facility] 10 DEPARTMEN DEPARTMEN MINUTES T T OFFICE 85690 GAYATHRI TRINH OUTPATIEN 0 0 SUNDEEP Bal T VISIT 15 MINUTES OFFICE 74783 GAYATHRI TRINH OUTPATIEN 0 0 SUNDEEP URBANO W T VISIT 15 MINUTES HOSPITAL PAMELA - 0 0 [facility] OUTPATIEN INC T EMERGENCY 58365 ARIN LEDBETTER, 0 0 EMERGENCY [facility] SERVICES T VISIT HIGH/URGE ASSOCIATE NT S SEVERITY EMERGENCY 31594 PAMELA 0 0 [facility] DEPARTMEN INC T VISIT MODERATE SEVERITY HOSPITAL PAMELA - 0 0 [facility] OUTPATIEN INC T EMERGENCY 07962 ARIN RENTERIA 0 0 EMERGENCY [facility] SERVICES SHANELLE T VISIT HIGH/URGE ASSOCIATE NT S SEVERITY HOSPITAL PAMELA - 9 9 [facility] OUTPATIEN INC T EMERGENCY 88885 ARIN LEDBETTER, 9 9 EMERGENCY [facility] SERVICES T VISIT HIGH/URGE ASSOCIATE NT S SEVERITY EMERGENCY 46725 PAMELA 9 9 [facility] DEPARTMEN INC T VISIT LOW/MODER SEVERITY OFFICE 69914 DHS/CO JOSEY VELÁZQUEZ 9 9 HEALTH CO T VISIT [facility] MINUT[facility] T OFFICE 15528 RYAN DAVIS OUTPATIEN 9 9 NAIMA A NAIMA A T VISIT 15 MINUTES EMERGENCY 80092 ARIN LEDBETTER, 9 9 EMERGENCY [facility] T VISIT HIGH/URGE ASSOCIATE NT S SEVERITY EMERGENCY 61670 [facility] 9 9 [facility] DEPARTMEN INC T VISIT MODERATE SEVERITY [facility] - 9 9 [facility] OUTPATIEN INC T PERIODIC 67095 DHS/CO DOWLING PREVENTIV 9 9 HEALTH CO E MED EST [facility] PATIENT BANK ACCT DEPARTMEN [id number] T OFFICE 16488 DHS/CO DEBO CO OUTPATIEN 9 9 HEALTH HEALTH T NEW 10 [facility] DEPARTMEN MINUTES BANK ACCT T OFFICE [id number] RYAN DAVIS OUTPATIEN 9 9 NAIMA A NAIMA A T VISIT 15 MINUTES EMERGENCY 37849 ARIN HATFIELD, 9 9 EMERGENCY [facility] T VISIT MODERATE ASSOCIATE SEVERITY S [facility] - 9 9 [facility] INC T EMERGENCY [id number] [facility] 9 9 [facility] DEPARTMEN INC T VISIT LOW/MODER SEVERITY [facility] - 9 9 [facility] OUTPATIEN INC T OFFICE 23838 DHS/CO DOWLING OUTPATIEN 9 9 HEALTH CO T VISIT [facility] 15 BANK ACCT DEPARTMEN MINUTES T OFFICE 23579 RYAN DAVIS OUTPATIEN 9 9 NAIMA A NAIMA A T VISIT 15 MINUTES OFFICE 89659 RYAN DAVIS OUTPATIEN 9 9 NAIMA A NAIMA A T VISIT 15 MINUTES OFFICE 78550 MELANIA CLAIRE 8 8 [facility] T VISIT INTERNAL 15 MED MINUTES [facility] 8 [facility] T OFFICE 36413 MELANIA CLAIRE 8 8 [facility] T VISIT INTERNAL 15 MED MINUTES [facility] - 8 8 [facility] OUT[facility] INC T OFFICE 68417 RYAN DAVIS OUTPATIEN 8 8 NAIAM A NAIMA A T VISIT 15 MINUTES OFFICE 91815 RYAN DAVIS OUTPATIEN 8 8 NAIMA A NAIMA A T VISIT 15 MINUTES [facility] - 8 8 [facility] [id number] RYAN DAVIS OUTPATIEN 8 8 NAIMA A NAIMA A T VISIT 15 MINUTES OFFICE 52009 RYAN DAVIS OUTPATIEN 8 8 NAIMA A NAIMA A T VISIT 15 MINUTES OFFICE 98300 RYAN DAVIS OUTPATIEN 8 8 NAIMA A NAIMA A T VISIT 15 MINUTES OFFICE 07015 RYAN DAVIS OUTPATIEN 8 8 NAIMA A NAIMA A T VISIT 15 MINUTES EMERGENCY 07190 [facility] 8 8 [facility] T VISIT MODERATE SEVERITY [facility] - 8 8 [facility]
--- OUTSIDE RECORDS SUMMARY | 2017-05-16 15:01 | External Medical Summary Rpt ---
Demographics Preferred Language Estonian Marital Status Unknown Jain Affiliation Unknown Race Unknown Ethnic Group Unknown Author Author , ROBERT JONES Address Unknown Phone Immunization Unable to retrieve immunization data due to connection failure with Immunization Registry. Please try again later.
--- OUTSIDE RECORDS SUMMARY | 2017-05-16 15:01 | External Medical Summary Rpt ---
Demographics Preferred Language Kiswahili Marital Status Unknown Christian Affiliation Unknown Race Unknown Ethnic Group Unknown Author Author , ROBERT JONES Address Unknown Phone Immunization Unable to retrieve immunization data due to connection failure with Immunization Registry. Please try again later.
--- OUTSIDE RECORDS SUMMARY | 2017-05-16 15:02 | External Medical Summary Rpt ---
Author Author [employer], [employer] Organization [employer] Address Unknown Phone Unavailable Results CHLAMYDIA AND GONORRHEA TESTING Observa Value Referen Units Interpr Notes Date tion ce etation Range COLLECT TV No No No No May 03 OR informa informa informa informa 2017 tion in tion in tion in tion in 8:00 AM source source source source data data data data ETHNICI WHITE, No No No No May 03 TY NON-HIS informa informa informa informa 2017 PANIC tion in tion in tion in tion in 8:00 AM source source source source data data data data KIT No No No No May 03 EXPIRAT 7 informa informa informa informa 2017 ION tion in tion in tion in tion in 8:00 AM DATE source source source source data data data data SYMPTOM NO No No No No May 03 S informa informa informa informa 2017 tion in tion in tion in tion in 8:00 AM source source source source data data data data REASON VOLUNTE No No No No May 03 FOR ER/MEDI informa informa informa informa 2017 REQUEST MEDHAT tion in tion in tion in tion in 8:00 AM PROBLEM source source source source data data data data SPECIME URINE No No No No May 03 N informa informa informa informa 2017 SOURCE tion in tion in tion in tion in 8:00 AM source source source source data data data data PREGNAN NO No No No No May 03 T informa informa informa informa 2017 tion in tion in tion in tion in 8:00 AM source source source source data data data data CHART [id number] No No No No May 03 NUMBER informa informa informa informa 2017 tion in tion in tion in tion in 8:00 AM source source source source data data data data Chlamyd NEGATIV No No No NEGATIV May 03 ia E informa informa informa E 2017 trachom tion in tion in tion in RESULT= 8:00 AM atis source source source WITHIN rRNA data data data NORMAL [Presen ce] in LIMITSP Unspeci OSITIVE fied specime RESULT= n by Probe & ABNORMA target LEQUIVO MEDHAT amplifi RESULT= cation method INDETER MINATEU NSATISF ACTORY RESULT= INVALID Neisser NEGATIV No No No NEGATIV May 03 ia E informa informa informa E 2017 gonorrh tion in tion in tion in [...] MAY HAVE ADVERSE PSYCHO- SOCIAL IMPACT, [facility] MM[facility] RETESTI NG.\.br \This report contain s patient informa tion that must be protect ed in accorda nce with the Health Insuran ce Portabi lity and Account ability Act. CHLAMYDIA AND GONORRHEA TESTING Observa Value Referen Units Interpr Notes Date tion ce etation Range COLLECT TV No No No No May 03 OR informa informa informa informa 2017 tion in tion in tion in tion in 8:00 AM source source source source data data data data ETHNICI WHITE, No No No No May 03 TY NON-HIS informa informa informa informa 2017 PANIC tion in tion in tion in tion in 8:00 AM source source source source data data data data KIT No No No No May 03 EXPIRAT 7 informa informa informa informa 2017 ION tion in tion in tion in tion in 8:00 AM DATE source source source source data data data data SYMPTOM NO No No No No May 03 S informa informa informa informa 2017 tion in tion in tion in tion in 8:00 AM source source source source data data data data REASON VOLUNTE No No No No May 03 FOR ER/MEDI informa informa informa informa 2017 REQUEST MEDHAT tion in tion in tion in tion in 8:00 AM PROBLEM source source source source data data data data SPECIME FEMALE No No No No May 03 N ENDOCER informa informa informa informa 2017 SOURCE VICAL tion in tion in tion in tion in 8:00 AM source source source source data data data data PREGNAN NO No No No No May 03 T informa informa informa informa 2017 tion in tion in tion in tion in 8:00 AM source source source source data data data data CHART [id number] No No No No May 03 NUMBER informa informa informa informa 2017 tion in tion in tion in tion in 8:00 AM source source source source data data data data [place] NEGATIV No No No NEGATIV May 03 ia E informa informa informa E 2017 trachom tion in tion in tion in RESULT= 8:00 AM atis source source source WITHIN rRNA data data data NORMAL [Presen ce] in LIMITSP Unspeci OSITIVE fied specime RESULT= n by Probe & ABNORMA target LEQUIVO MEDHAT amplifi RESULT= cation method INDETER MINATEU NSATISF ACTORY RESULT= INVALID Neisser NEGATIV No No No NEGATIV May 03 ia E informa informa informa E 2017 gonorrh tion in tion in tion in [...] Range COLLECT TV No No No No May 03 OR informa informa informa informa 2017 tion in tion in tion in tion in 8:00 AM source source source source data data data data ETHNICI WHITE, No No No No May 03 TY NON-HIS informa informa informa informa 2017 PANIC tion in tion in tion in tion in 8:00 AM source source source source data data data data KIT No No No No May 03 EXPIRAT 7 informa informa informa informa 2017 ION tion in tion in tion in tion in 8:00 AM DATE source source source source data data data data SYMPTOM NO No No No No May 03 S informa informa informa informa 2017 tion in tion in tion in tion in 8:00 AM source source source source data data data data REASON VOLUNTE No No No No May 03 FOR ER/MEDI informa informa informa informa 2017 REQUEST MEDHAT tion in tion in tion in tion in 8:00 AM PROBLEM source source source source data data data data SPECIME PHARYNG No No No No May 03 N EAL informa informa informa informa 2017 SOURCE tion in tion in tion in tion in 8:00 AM source source source source data data data data PREGNAN NO No No No No May 03 T informa informa informa informa 2017 tion in tion in tion in tion in 8:00 AM source source source source data data data data CHART [id number] No No No No May 03 NUMBER informa informa informa informa 2017 tion in tion in tion in tion in 8:00 AM source source source source data data data data [place] NEGATIV No No No NEGATIV May 03 ia E informa informa informa E 2017 trachom tion in tion in tion in RESULT= 8:00 AM atis source source source WITHIN rRNA data data data NORMAL [Presen ce] in LIMITSP Unspeci OSITIVE fied specime RESULT= n by Probe & ABNORMA target LEQUIVO MEDHAT amplifi RESULT= cation method INDETER MINATEU NSATISF ACTORY RESULT= INVALID Neisser NEGATIV No No No NEGATIV May 03 ia E informa informa informa E 2017 gonorrh tion in tion in tion in [...] PSYCHO- SOCIAL IMPACT, THE [facility] MMENDS RETESTI NG. REMARKS No No No No RECTAL May 03 informa informa informa informa AND 2017 tion in tion in tion in tion in PHARYNG 8:00 AM source source source source EAL data data data data SPECIME NS HAVE BEENVAL IDATED BY THE [place] DIV[employer] N OF [employer]. THEY HAVE NOT BEEN CLEARED ORAPPRO ALEJANDRO BY THE FDA. THE FDA HAD DETERMI NEDTHAT SUCH CLEARAN CE OR APPROVA L IS NOTNECE SSARY. THIS TEST IS USED FOR [facility]IN[facility] LPURPOS ES.\.br \This report contain s patient informa tion that must be protect ed in accorda nce with the Health Insuran ce Portabi lity and Account ability Act. CHLAMYDIA AND GONORRHEA TESTING Observa Value Referen Units Interpr Notes Date tion ce etation Range COLLECT TV No No No No May 03 OR informa informa informa informa 2017 tion in tion in tion in tion in 8:00 AM source source source source data data data data ETHNICI WHITE, No No No No May 03 TY NON-HIS informa informa informa informa 2017 PANIC tion in tion in tion in tion in 8:00 AM source source source source data data data data KIT No No No No May 03 EXPIRAT 7 informa informa informa informa 2017 ION tion in tion in tion in tion in 8:00 AM DATE source source source source data data data data SYMPTOM NO No No No No May 03 S informa informa informa informa 2017 tion in tion in tion in tion in 8:00 AM source source source source data data data data REASON VOLUNTE No No No No May 03 FOR ER/MEDI informa informa informa informa 2017 REQUEST MEDHAT tion in tion in tion in tion in 8:00 AM PROBLEM source source source source data data data data SPECIME PHARYNG No No No No May 03 N EAL informa informa informa informa 2017 SOURCE tion in tion in tion in tion in 8:00 AM source source source source data data data data PREGNAN NO No No No No May 03 T informa informa informa informa 2017 tion in tion in tion in tion in 8:00 AM source source source source data data data data CHART [id number] No No No No May 03 NUMBER informa informa informa informa 2017 tion in tion in tion in tion in 8:00 AM source source source source data data data data [place]lamyd Pending No No No No May 03 ia informa informa informa informa 2017 trachom tion in tion in tion in tion in 8:00 AM atis source source source source rRNA data data data data [Presen ce] in Unspeci fied specime n by Probe & target amplifi cation method Neisser Pending No No No No May 03 ia informa informa informa informa 2017 gonorrh tion in tion in tion in tion in 8:00 AM oeae source source source source rRNA data data data data [Presen ce] in Unspeci fied specime n by Probe & target amplifi cation method REMARKS No No No No RECTAL May 03 informa informa informa informa AND 2017 tion in tion in tion in tion in PHARYNG 8:00 AM source source source source EAL data data data data SPECIME NS HAVE BEENVAL IDATED BY THE [place] [employer]. THEY HAVE NOT BEEN CLEARED ORAPPRO ALEJANDRO BY THE FDA. THE FDA HAD DETERMI NEDTHAT SUCH CLEARAN CE OR APPROVA L IS NOTNECE SSARY. THIS TEST IS USED FOR [facility] LPURPOS ES.\.br \This report contain s patient informa tion that must be protect ed in accorda nce with the Health Insuran ce Portabi lity and Account ability Act. CHLAMYDIA AND GONORRHEA TESTING Observa Value Referen Units Interpr Notes Date tion ce etation Range COLLECT TV No No No No May 03 OR informa informa informa informa 2017 tion in tion in tion in tion in 8:00 AM source source source source data data data data ETHNICI WHITE, No No No No May 03 TY NON-HIS informa informa informa informa 2017 PANIC tion in tion in tion in tion in 8:00 AM source source source source data data data data KIT No No No No May 03 EXPIRAT 7 informa informa informa informa 2017 ION tion in tion in tion in tion in 8:00 AM DATE source source source source data data data data SYMPTOM NO No No No No May 03 S informa informa informa informa 2017 tion in tion in tion in tion in 8:00 AM source source source source data data data data REASON VOLUNTE No No No No May 03 FOR ER/MEDI informa informa informa informa 2017 REQUEST MEDHAT tion in tion in tion in tion in 8:00 AM PROBLEM source source source source data data data data SPECIME FEMALE No No No No May 03 N ENDOCER informa informa informa informa 2017 SOURCE VICAL tion in tion in tion in tion in 8:00 AM source source source source data data data data PREGNAN NO No No No No May 03 T informa informa informa informa 2017 tion in tion in tion in tion in 8:00 AM source source source source data data data data CHART [id number] No No No No May 03 NUMBER informa informa informa informa 2017 tion in tion in tion in tion in 8:00 AM source source source source data data data data [place]lamyd Pending No No No No May 03 ia informa informa informa informa 2017 trachom tion in tion in tion in tion in 8:00 AM atis source source source source rRNA data data data data [Presen ce] in Unspeci fied specime n by Probe & target amplifi cation method Neisser Pending No No No \.br\May 03 ia informa informa informa is 2017 gonorrh tion in tion in tion in [...] Range COLLECT TV No No No No May 03 OR informa informa informa informa 2017 tion in tion in tion in tion in 8:00 AM source source source source data data data data ETHNICI WHITE, No No No No May 03 TY NON-HIS informa informa informa informa 2017 PANIC tion in tion in tion in tion in 8:00 AM source source source source data data data data KIT No No No No May 03 EXPIRAT 7 informa informa informa informa 2017 ION tion in tion in tion in tion in 8:00 AM DATE source source source source data data data data SYMPTOM NO No No No No May 03 S informa informa informa informa 2017 tion in tion in tion in tion in 8:00 AM source source source source data data data data REASON VOLUNTE No No No No May 03 FOR ER/MEDI informa informa informa informa 2017 REQUEST MEDHAT tion in tion in tion in tion in 8:00 AM PROBLEM source source source source data data data data SPECIME URINE No No No No May 03 N informa informa informa informa 2017 SOURCE tion in tion in tion in tion in 8:00 AM source source source source data data data data PREGNAN NO No No No No May 03 T informa informa informa informa 2017 tion in tion in tion in tion in 8:00 AM source source source source data data data data CHART [id number] No No No No May 03 NUMBER informa informa informa informa 2017 tion in tion in tion in tion in 8:00 AM source source source source data data data data [place]lamyd Pending No No No No May 03 ia informa informa informa informa 2017 trachom tion in tion in tion in tion in 8:00 AM atis source source source source rRNA data data data data [Presen ce] in Unspeci fied specime n by Probe & target amplifi cation method Neisser Pending No No No \.br\May 03 ia informa informa informa is 2017 gonorrh tion in tion in tion in [...] Range COLLECT TV No No No No May 03 OR informa informa informa informa 2017 tion in tion in tion in tion in 8:00 AM source source source source data data data data ETHNICI WHITE, No No No No May 03 TY NON-HIS informa informa informa informa 2017 PANIC tion in tion in tion in tion in 8:00 AM source source source source data data data data KIT No No No No May 03 EXPIRAT 7 informa informa informa informa 2017 ION tion in tion in tion in tion in 8:00 AM DATE source source source source data data data data SYMPTOM NO No No No No May 03 S informa informa informa informa 2017 tion in tion in tion in tion in 8:00 AM source source source source data data data data REASON VOLUNTE No No No No May 03 FOR ER/MEDI informa informa informa informa 2017 REQUEST MEDHAT tion in tion in tion in tion in 8:00 AM PROBLEM source source source source data data data data SPECIME PHARYNG No No No No May 03 N EAL informa informa informa informa 2017 SOURCE tion in tion in tion in tion in 8:00 AM source source source source data data data data PREGNAN NO No No No No May 03 T informa informa informa informa 2017 tion in tion in tion in tion in 8:00 AM source source source source data data data data CHART [id number] No No No No May 03 NUMBER informa informa informa informa 2017 tion in tion in tion in tion in 8:00 AM source source source source data data data data [place]lamyd Pending No No No No May 03 ia informa informa informa informa 2017 trachom tion in tion in tion in tion in 8:00 AM atis source source source source rRNA data data data data [Presen ce] in Unspeci fied specime n by Probe & target amplifi cation method Neisser Pending No No No \.br\May 03 ia informa informa informa is 2017 gonorrh tion in tion in tion in report 8:00 AM oeae source source source contain rRNA data data data s [Presen patient ce] in Unspeci informa fied tion specime that n by must be Probe & target protect ed in amplifi accorda cation nce method with the Health Insuran ce Portabi lity and Account ability Act. Urinalysis macro (dipstick) panel in Urine Observa [...] March 08 of YELLOW informa informa informa 2016 Urine tion in [...] No March 08 gravity 1.030 informati informati 2017 7:19 of Urine on in on in [...] source source data data data data CHART [id number] No No No No Aug 2 NUMBER informa informa informa informa 2016 [...] data ETHNICI WHITE, No No No No Aug 2 TY NON-HIS informa informa informa informa 2016 PANIC tion in tion in tion in tion in 8:00 AM source source source source data data data data KIT --2 No No No No Aug 2 EXPIRAT 017 informa informa informa informa [...] source source data data data data CHART [id number] No No No No Aug 2 NUMBER informa informa informa informa 2016 [...] method Neisser Pending No No No \.br\Aug 2 ia informa informa informa is 2016 gonorrh [...] source source data data data data CHART [id number] No No No No Apr 04 NUMBER [...] source source data data data data CHART [id number] No No No No Apr 04 NUMBER [...] source source data data data data CHART [id number] No No No No Jan 14 NUMBER [...] source source data data data data CHART [id number] No No No No Jan 14 NUMBER informa informa informa informa 2016 tion in tion in tion in tion in 8:00 AM source source source source data data data data [place] Pending No No No No Jan 14 ia informa informa informa informa 2016 trachom [...] OR DEIDRE informa informa informa informa 2010 [employer] tion in tion in tion in tion in 12:32 source source source source PM data data data data ETHNICI WHITE, No No No No Sep 12 TY NON-HIS informa informa informa informa 2011 PANIC tion in tion in tion in tion in 12:32 source source source source PM data data data data KIT 10/27 No No No No Jun 27 EXPIRAT informa informa informa informa 2011 ION tion in tion in tion in tion in 12:32 DATE source source source source PM data data data data SYMPTOM NO No No No No Sep 12 S informa informa informa informa 2011 [...] source PM data data data data CHART [id number] No No No No Jun 12 NUMBER 57 informa informa informa informa 2011 tion in tion in tion in tion in 12:32 source source source source PM data data data data [place] NEGATIV No No No NEGATIV Sep 12 [...] MINATEU NSATISF ACTORY RESULT= INVALID EFFECTI VE SKY R 2009: THE APTIMA COMBO 2 NUCLEIC [...]
--- OUTSIDE RECORDS SUMMARY | 2017-05-16 15:02 | External Medical Summary Rpt ---
[...] source source data data data data CHART [id number] No No No No May 03 NUMBER [...] MAY HAVE ADVERSE PSYCHO- SOCIAL IMPACT, [facility] MMENDS RETESTI NG.\.br \This report contain s [...] source source data data data data CHART [id number] No No No No May 03 NUMBER [...] source source data data data data CHART [id number] No No No No May 03 NUMBER [...] IDATED BY THE [place] DIV[employer] OF [employer]. THEY HAVE NOT BEEN CLEARED ORAPPRO ALEJANDRO [...] source source data data data data CHART [id number] No No No No May 03 NUMBER [...] IDATED BY THE [place] DIV[employer] OF [employer]. THEY HAVE NOT BEEN CLEARED ORAPPRO [...] source source data data data data CHART [id number] No No No No May 03 NUMBER [...] source source data data data data CHART [id number] No No No No May 03 NUMBER [...] source source data data data data CHART [id number] No No No No May 03 NUMBER [...] source source data data data data CHART [id number] No No No No Aug 2 NUMBER [...] source source data data data data CHART [id number] No No No No Aug 2 NUMBER [...] source source data data data data CHART [id number] No No No No Apr 04 NUMBER [...] source source data data data data CHART [id number] No No No No Apr 04 NUMBER [...] source source data data data data CHART [id number] No No No No Jan 14 NUMBER [...] source source data data data data CHART [id number] No No No No Jan 14 NUMBER [...] OR DEIDRE informa informa informa informa 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
[2017-05-16] MEDS ORDERED: GENTAMICIN O5 ML/BOT OP (15:04)
--- NOTE | 2017-05-16 15:04 | Urgent Treatment Center Report ---
History of Present Issue Date/Time Seen by Provider 05/16/17 6494 Visit Reason Pt arrived:Walked Presenting Problem:PT STATES TWO DAYS AGO, HER EYES BEGAN TO HAVE SWELLING, REDNESS, WATERING PAINFUL, AND ITCHING. Location if Accident: Onset of symptoms date/time:/ or onset unknown for:MEDICAL HX UNKNOWN Have you (or family members/close friends) recently traveled outside the [place]? N If Yes, where/when: Have you had exposure to infectious disease within the past month? TB? Other? Specify: Patient states that around 2 days ago she began noticing some swelling around her eyes states that she noticed that they was red and watering more with thick drainage from them and itching and burning so she took out her contacts and threw them away states that now her eyes are red, itching and draining and this morning was matted together with infection ALLERGIES Coded Allergies: Coconut (From COCONUT (FOOD/DRUG)) (05/16/17) Mushroom (From MUSHROOMS (FOOD/DRUG)) (05/16/17) coconut (From COCONUT (FOOD/DRUG)) (05/16/17) erythromycin base (03/08/17) mushroom (From MUSHROOMS (FOOD/DRUG)) (05/16/17) sulfisoxazole (03/08/17) Home Medications Reported Medications ETONOGESTREL/ETHINYL ESTRADIOL (Nuvaring Vaginal Ring) 1 VG . History Medical History General CAD? No Angina: No NV: No Hypertension? Yes Hyperlipidemia? No CHF? No DVT? No PE? No COPD? No Asthma? Yes Anemia? No GERD? No Gastric ulcers? No GI Bleed? No Hernia? No Thyroid Problems? No Hypothyroidism? No CVA? No Seizures? No Diabetes? No Renal Insuffiency? No UTI? No Stones? No BPH? No GB Disease: No Nephritic Syndrome? No Asplenia? No Hepatitis? No Sickle Cell Disease? No Arthritis? No Migraines? No Cataracts? No Glaucoma? No MRSA? No HIV? No TB? No Anxiety? Yes Depression? No Cancer? 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 Social History Smoking Hx Smoker: Current Every Day Smoker Tobacco: Yes Type Cigarettes Alcohol Alcohol: Yes Review of Systems All Other Systems Reviewed and Negative Eyes drainage, inflammation Physical Exam Vital Signs Vital Signs Date Time Temp Pulse Resp B/P Pulse O2 O2 Flow FiO2 Ox Delivery Rate 05/16 1447 98.6 91 18 119/79 99 General Appearance normal appearance, WD/WN, no apparent distress Eye Exam - right eye other (bilateral red conjunctiva), bilateral eye normal exam, bilateral eye PERRL, bilateral eye EOMI Respiratory Status Yes: trachea midline, chest symmetrical, non tender chest. No: respiratory distress. 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 No Departure Departure Time of Disposition 1459 Disposition DC Home or Self Care(routine) Clinical Impression Primary Impression: Bilateral conjunctivitis Qualifiers: Conjunctivitis type: unspecified Qualified Code: H10.9 - Unspecified conjunctivitis Condition STABLE Patient Instructions Conjunctivitis, Conjunctivitis (Alternative Therapy), DI for Conjunctivitis Additional Instructions Use drops as directed No contacts to be worn as they will harbor the infection and any worn prior to infection need to be disposed of Follow up with family doctor if needed Follow up with eye doctor if needed Discharge Counseling Counseled pt/family regarding diagnosis, medications/RX, home care, follow up needs Prescriptions Current Visit Scripts GENTAMICIN SULFATE (GENTAMICIN 0.3% OPHTH SOLN) 1-2 DROP OP Q4 #1 BOT Ref 1 TO AFFECTED EYE(S) at 150
--- NOTE | 2017-05-16 15:04 | [facility]gent [facility] Report ---
History of Present Issue Date/Time Seen by Provider 05/16/17 4645 Visit Reason Pt arrived:Walked Presenting Problem:PT STATES TWO DAYS AGO, HER EYES BEGAN TO HAVE SWELLING, REDNESS, WATERING PAINFUL, AND ITCHING. Location if Accident: Onset of symptoms date/time:/ or onset unknown for:MEDICAL HX UNKNOWN Have you (or family members/close friends) recently traveled outside the [place]? N If Yes, where/when: Have you had exposure to infectious disease within the past month? TB? Other? Specify: Patient states that around 2 days ago she began noticing some swelling around her eyes states that she noticed that they was red and watering more with thick drainage from them and itching and burning so she took out her contacts and threw them away states that now her eyes are red, itching and draining and this morning was matted together with infection ALLERGIES Coded Allergies: Coconut (From COCONUT (FOOD/DRUG)) (05/16/17) Mushroom (From MUSHROOMS (FOOD/DRUG)) (05/16/17) coconut (From COCONUT (FOOD/DRUG)) (05/16/17) erythromycin base (03/08/17) mushroom (From MUSHROOMS (FOOD/DRUG)) (05/16/17) sulfisoxazole (03/08/17) Home Medications Reported Medications ETONOGESTREL/ETHINYL ESTRADIOL (Nuvaring Vaginal Ring) 1 VG . History Medical History General CAD? No Angina: No ME: No Hypertension? Yes Hyperlipidemia? No CHF? No DVT? No PE? No COPD? No Asthma? Yes Anemia? No GERD? No Gastric ulcers? No GI Bleed? No Hernia? No Thyroid Problems? No Hypothyroidism? No CVA? No Seizures? No Diabetes? No Renal Insuffiency? No UTI? No Stones? No BPH? No GB Disease: No Nephritic Syndrome? No Asplenia? No Hepatitis? No Sickle Cell Disease? No Arthritis? No Migraines? No Cataracts? No Glaucoma? No MRSA? No HIV? No TB? No Anxiety? Yes Depression? No Cancer? 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 Social History Smoking Hx Smoker: Current Every Day Smoker Tobacco: Yes Type Cigarettes Alcohol Alcohol: Yes Review of Systems All Other Systems Reviewed and Negative Eyes drainage, inflammation Physical Exam Vital Signs Vital Signs Date Time Temp Pulse Resp B/P Pulse O2 O2 Flow FiO2 Ox Delivery Rate 05/16 1447 98.6 91 18 119/79 99 General Appearance normal appearance, WD/WN, no apparent distress Eye Exam - right eye other (bilateral red conjunctiva), bilateral eye normal exam, bilateral eye PERRL, bilateral eye EOMI Respiratory Status Yes: trachea midline, chest symmetrical, non tender chest. No: respiratory distress. 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 No Departure Departure Time of Disposition 1459 Disposition DC Home or Self Care(routine) Clinical Impression Primary Impression: Bilateral conjunctivitis Qualifiers: Conjunctivitis type: unspecified Qualified Code: H10.9 - Unspecified conjunctivitis Condition STABLE Patient Instructions Conjunctivitis, Conjunctivitis (Alternative Therapy), DI for Conjunctivitis Additional Instructions Use drops as directed No contacts to be worn as they will harbor the infection and any worn prior to infection need to be disposed of Follow up with family doctor if needed Follow up with eye doctor if needed Discharge Counseling Counseled pt/family regarding diagnosis, medications/RX, home care, follow up needs Prescriptions Current Visit Scripts GENTAMICIN SULFATE (GENTAMICIN 0.3% OPHTH SOLN) 1-2 DROP OP Q4 #1 BOT Ref 1 TO AFFECTED EYE(S) at 1506
[2017-05-16 15:11] VITALS: BP 119/79
== END 2017-05-16 15:11 | disposition home or self-care (01) ==
LOC: UTC 14:32
DX: H10.33 Unspecified acute conjunctivitis, bilateral (principal); I10 Essential (primary) hypertension; Z72.0 Tobacco use